=== PATIENT | male | born 1955 | race Caucasian/White ===

== ENCOUNTER 2024-11-19 14:33 | Outpatient (CLI) | payer MEDICARE, SELFPAY ==
[2024-11-19 18:30] LABS: Basophils # 0.1 K/mm3 (0-0.2); Basophils % 0.6 % (0.1-2.0); Eosinophils # 0.7 K/mm3 (0.0-0.4); Eosinophils % 8.7 % (0.1-12.0); Hematocrit 42.9 % (42.0-52.0); Hemoglobin 13.8 g/dL (14.1-18.0); Lymphocytes # 2.4 K/mm3 (0.7-4.5); Lymphocytes % 29.7 % (10-50); Mean Corpuscular HGB Conc 32.2 g/dL (31.8-35.4); Mean Corpuscular Volume 83.8 fl (80-94); Mean Platelet Volume 10.1 fl (7.4-10.4); Monocytes # 0.6 K/mm3 (0.1-1.0); Neutrophils # 4.4 K/mm3 (1.8-7.8); Neutrophils % 53.8 % (37.0-80.0); Platelet Count 243 K/mm3 (142-424); Red Blood Count 5.12 M/mm3 (4.60-6.20); Red Cell Distribution Width 15.8 % (11.5-17.5); White Blood Count 8.1 K/mm3 (4.8-10.8)
[2024-11-19 18:31] LABS: Creatinine,Urine Random 21 mg/dL (Not Estab.)
[2024-11-19 19:09] LABS: Albumin Level 3.8 g/dl (3.5-5.0); Chloride 100 mmol/L (98-107); Sodium 138 mmol/L (136-145)
[2024-11-19 19:10] LABS: Potassium 4.2 mmoL/L (3.5-5.1)
[2024-11-19 19:12] LABS: Alanine Aminotransferase 9 U/L (12-78); Albumin/Globulin Ratio 1.3 (1.1-1.8); Anion Gap 11.2 mEq/L (5-15); Aspartate Amino Transferase 20 U/L (17-59); Bilirubin,Total 0.3 mg/dl (0.2-1.3); Blood Urea Nitrogen 32 mg/dl (9-20); Carbon Dioxide 31 mmol/L (22.0-30.0); Cholesterol 167 mg/dl (140-200); Estimated Glomerular Filt Rate 28 ml/min (>60); GFR (African American) 34 ML/MIN (>60); Globulin 2.9 g/dL (1.3-3.2); Total Protein,Serum 6.7 g/dl (6.3-8.2); Triglycerides 323 mg/dl (30-150); VLDL Cholesterol 65 mg/dL (0-40)
[2024-11-19 19:13] LABS: Alkaline Phosphatase 122 U/L (38-126); Calcium 8.5 mg/dl (8.4-10.2); Chol/HDL Ratio 3.3 (1-3.5); Glucose 118 mg/dl (74-100); HDL Cholesterol 51 mg/dl (40-60)
[2024-11-19 19:23] LABS: Direct LDL Cholesterol 77.97 mg/dL (100-129)
[2024-11-19 19:44] LABS: Thyroid Stimulating Hormone 3.58 uIU/mL (0.465-4.68)
[2024-11-19 20:47] LABS: Microalbumin > 190.000 mg/L (0-16.7); Microalbumin/Creatinine Ratio 904.7
[2024-11-19 21:08] LABS: Prostate Specific Ag Screen 0.7 ng/ml (0.0-4.0)
== END 2024-11-19 23:59 | disposition home or self-care (01) ==
LOC: LAB.DROPOF 11-22 12:16
PROVIDERS: PCP Family Medicine; Visit Provider Family Medicine
DX: E11.9 Type 2 diabetes mellitus without complications (principal); N19 Unspecified kidney failure; Z12.5 Encounter for screening for malignant neoplasm of prostate; Z76.89 Persons encountering health services in other specified circumstances
CPT/HCPCS: 80053; 80061; 82043; 82570; 84443; 85025; G0103

== ENCOUNTER 2025-01-06 10:05 | Outpatient (RCR) | payer MEDICARE, SELFPAY ==
--- NOTE | 2025-01-06 11:50 | HMH.PTOPEV ---
PT Outpatient Evaluation Rehab PT Outpatient Evaluation Start: 01/06/25 10:25 Freq: Status: Active Protocol: Document 01/06/25 10:30 PHORNE (Rec: 01/06/25 11:49 PHORNE [id number]) E-signed By Tima Lau, PT Outpatient Therapy Subjective History Subjective History Mr. Ardon is a 69 year-old man who presents with vertigo since he moved from [place] ~2 months ago. 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 He has a prior history of inner ear infections and seasonal allergies. Pt states that he does not have hearing loss and has had to use his hearing to compensate from poor vision throughout his life. Pt has had >2 falls in last 6 months, and has led to some MSK pain and neck tightness. Pt states occasionally the area around his anterior neck will swell and he will black out. 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 Pt states nausea/ vomiting will accompany his vertigo, and it lasts for hours at a time until he takes his meclizine. He states that there is no specific movement that triggers his vertigo, but is worse in bed although pt sleeps in his recliner. He states that meclizine has helped, but his vertigo has progressively gotten worse. Pt uses a cane for ambulation as needed. New diagnosis of cancer in past 12 Yes months? Chief Complaint Other Current Functional Limitations Lifting,Housework,Standing, Recreation Activity,Walking, Balance Symptom Description Activity Dependent Balance Eval Hx of Falls Hx Falls Yes Number in last 6 months 2 Nystagmus Nystagmus Presence None Miscellaneous Dx PT Eval Objective Objective Special tests: (-) L and R [place]-Hallpike maneuvers for anterior/ posterior canal BPPV Hearing acuity equal bilaterally Visual acuity impaired, therefore VOR and oculomotor testing deferred Outpatient Therapy Assessment Impairments Problems/Impairmments Impaired Walking,Impaired Standing,Impaired Household Care,Impaired Stepping on Uneven Surface,Impaired Recreational Activities, Impaired Work Activities, Impaired Balance Prognosis Rehab Potential Innapropriate for Skilled Therapy Comment Patient presents with vertigo and numerous comorbid conditions that may be causing his dizziness. Due to pt's blindness and lack of visual acuity, VOR and oculomotor testing were unable to be assessed. Pt's history and negative [place]-Hallpike maneuvers B/L ruled out anterior/posterior canal BPPV. Pt's history of a-fib, renal cancer with nephrectomy, blindness bilaterally, Parkinson's disease, and hx of inner ear infections are all potential causes for pt's sx. Currently there is little expected benefit to any treatment our clinic can offer at this time. Pt may benefit from further work-up or referral to ENT or neurology if he wishes to pursue further treatment. Clinical Impression Consistent with Diagnosis No Outpatient Therapy Plan of Care Treatment Plan May Include Eval/Re-Eval Yes Addendums This patient is a candidate for social No or vocational rehab? Patient/Guardian verbally acknowledges Yes understanding of treatment program and consents to further treatment? Patient/Guardian verbally acknowledges Yes understanding of diagnosis, prognosis and goals for treatment? Eval Complexity PT Charges 30600 - High Complexity Shoulder/Elbow Eval Shoulder Objective Measurements Elbow Objective Measurements PHYSICIAN CERTIFICATION: I certify the specified therapy services for Chinmay Ardon are required, authorized, and reviewed every 30 days.
== END 2025-01-06 23:59 | disposition home or self-care (01) ==
LOC: PT 10:05
PROVIDERS: Visit Provider Physician Assistant
DX: R42 Dizziness and giddiness (principal)
CPT/HCPCS: 97163

== ENCOUNTER 2025-01-19 09:41 | Outpatient (CLI) | payer MEDICARE, SELFPAY ==
[2025-01-19 19:37] LABS: Basophils # 0.1 K/mm3 (0-0.2); Basophils % 0.6 % (0.1-2.0); Eosinophils # 0.4 Kmm3 (0.0-0.4); Eosinophils % 4.5 % (0.1-12.0); Hematocrit 47.7 % (42.0-52.0); Hemoglobin 14.9 g/dL (14.1-18.0); Immature Granulocytes # 0.02 10^3uL; Immature Granulocytes % 0.2 %; Lymphocytes # 2.4 K/mm3 (0.7-4.5); Lymphocytes % 27.1 % (10-50); Mean Corpuscular HGB Conc 31.2 g/dL (31.8-35.4); Mean Corpuscular Hemoglobin 27.1 pg (27.0-31.2); Mean Corpuscular Volume 86.9 fl (80-94); Mean Platelet Volume 10.1 fl (7.4-10.4); Monocytes # 0.5 K/mm3 (0.1-1.0); Neutrophils # 5.4 K/mm3 (1.8-7.8); Neutrophils % 61.6 % (37.0-80.0); Nucleated Red Blood Cells # 0 10^3/uL; Nucleated Red Blood Cells % 0 %; Platelet Count 242 K/mm3 (142-424); Red Blood Count 5.49 M/mm3 (4.60-6.20); Red Cell Distribution Width 16.7 % (11.5-17.5); Red Cell Distribution Width-SD 52.4 fL; White Blood Count 8.8 K/mm3 (4.8-10.8)
[2025-01-19 20:06] LABS: Chloride 102 mmol/L (98-107); Sodium 137 mmol/L (136-145)
[2025-01-19 20:07] LABS: Potassium 4.1 mmoL/L (3.5-5.1)
[2025-01-19 20:09] LABS: Alanine Aminotransferase 7 U/L (12-78); Anion Gap 12.1 mEq/L (5-15); Aspartate Amino Transferase 19 U/L (17-59); Blood Urea Nitrogen 47 mg/dl (9-20); Carbon Dioxide 27 mmol/L (22.0-30.0); Estimated Glomerular Filt Rate 22 ml/min (>60); GFR (African American) 26 ML/MIN (>60)
[2025-01-19 20:10] LABS: Albumin/Globulin Ratio 1.3 (1.1-1.8); Alkaline Phosphatase 105 U/L (38-126); Bilirubin,Total 0.4 mg/dl (0.2-1.3); Calcium 8.8 mg/dl (8.4-10.2); Globulin 3.1 g/dL (1.3-3.2); Glucose 191 mg/dl (74-100); Total Protein,Serum 7.1 g/dl (6.3-8.2)
== END 2025-01-19 23:59 | disposition home or self-care (01) ==
LOC: LAB.DROPOF 01-21 12:51
PROVIDERS: PCP Family Medicine; Visit Provider Family Medicine
DX: R42 Dizziness and giddiness (principal); H35.52 Pigmentary retinal dystrophy
CPT/HCPCS: 80053; 85025

== ENCOUNTER 2025-02-01 09:08 | Day surgery (SDC) | payer MEDICARE, SELFPAY ==
[2025-01-28 13:31] VITALS: BMI 32.6
--- NOTE | 2025-02-01 09:47 | ECG_ITS ---
APPROVED REPORT Exam: Resting ECG HR:63 bpm ECG Measurements Heart Rate 63 AXES QRSd 110 QRS 78 QT 406 T 75 QTc 413 Conclusion ATRIAL FIBRILLATION LOW QRS VOLTAGE IN EXTREMITY LEADS [QRS DEFLECTION < 0.5 mV IN LIMB LEADS] ABNORMAL RHYTHM ECG UNCONFIRMED REPORT Electronically signed by : Iglesia Sandoval MD 02/02/2025 08:49:39
[2025-02-01 09:49] VITALS: BP 168/99; PULSE 63; RESP 18; TEMP 36.1; O2SAT 99
--- NOTE | 2025-02-01 10:00 | CA_ITS ---
APPROVED REPORT EXAM: Comprehensive 2D, Doppler, and color-flow Echocardiogram Cork Sorter: RT Chriss(R) Ht: 5 ft 9 in Wt: 226lbs BSA: 2.18 BP: 136/75 mmHg Indications: AFIB, parkinsons disease, legally blind, WILLIAM amulet device 07/08/24, DM Procedure After obtaining informed consent, patient underwent transesophageal echo in the [facility]. Type of Sedation : MAC Sedation was administered by Butch Huang C.R.N.A. Sedation start time: 12:05 Case end Time: 12:20 Transesophageal probe was inserted and advanced into esophagus without difficulty by Dr. Angel Luis Cohen. The OLVIN was performed without complications. Throughout the procedure, the blood pressure, pulse oximetry, cardiac rhythm, and rate were monitored. The patient tolerated the procedure without adverse effects. Recovery from conscious sedation was uneventful and vital signs were stable. Left Ventricle The left ventricle is normal size. The left ventricular systolic function is normal. The left ventricular ejection fraction is within the normal range. There is increased overall thickness. There is normal LV segmental wall motion. LVEF is 60%. Right Ventricle The right ventricle is normal size. The right ventricular systolic function is normal. Atria The left atrium is dilated. The patient is s/p WILLIAM occlusion device (07/08/2024) with Amulet device. The device is well-seated in the ostial LA appendage. There are no masses or thrombi. No evidence of peridevice leak. No evidence of flow on color Doppler distally into the WILLIAM. The right atrium size is normal. s/p iatrogenic ASD post-WILLIAM occlusion device placement. In this study, color Doppler does not identify the iatrogenic ASD. Aortic Valve Aortic valve is mildly thickened. There is no aortic valvular stenosis. Mitral Valve The mitral valve is normal in structure. No evidence of mitral valve stenosis. Mild mitral regurgitation. Tricuspid Valve Tricuspid valve is grossly normal in structure and function. Mild tricuspid regurgitation. RVSP is 12 mmHg plus RA pressure. Trace pulmonic regurgitation. Pulmonic Valve The pulmonary valve is normal in structure. Great Vessels The aortic root is normal in size. The ascending aorta is normal in size. Pericardium There is no pericardial effusion. Other Information Study Quality: Fair Conclusion Normal biventricular systolic function. Biatrial dilation. The patient is s/p WILLIAM occlusion device (07/08/2024) with Amulet device. The device is well-seated in the ostial LA appendage. There are no masses or thrombi. No evidence of peridevice leak. No evidence of flow on color Doppler distally into the WILLIAM. s/p iatrogenic ASD post-WILLIAM occlusion device placement. In this study, color Doppler does not identify the iatrogenic ASD. Mild MR, mild TR. Electronically signed by : Mckayla Cohen MD 02/07/2025 13:25:17
[2025-02-01 10:07] LABS: Basophils % 0.5 % (0.1-2.0); Eosinophils # 0.5 Kmm3 (0.0-0.4); Eosinophils % 5.9 % (0.1-12.0); Hematocrit 46.3 % (42.0-52.0); Hemoglobin 14.8 g/dL (14.1-18.0); Immature Granulocytes # 0.02 10^3uL; Immature Granulocytes % 0.2 %; Lymphocytes # 3.4 K/mm3 (0.7-4.5); Mean Corpuscular Hemoglobin 27.3 pg (27.0-31.2); Mean Corpuscular Volume 85.3 fl (80-94); Mean Platelet Volume 9.4 fl (7.4-10.4); Monocytes # 0.4 K/mm3 (0.1-1.0); Monocytes % 4.5 % (1.7-9.3); Neutrophils % 47.9 % (37.0-80.0); Nucleated Red Blood Cells # 0 10^3/uL; Nucleated Red Blood Cells % 0 %; Platelet Count 197 K/mm3 (142-424); Red Blood Count 5.43 M/mm3 (4.60-6.20); Red Cell Distribution Width 15.7 % (11.5-17.5); Red Cell Distribution Width-SD 48.4 fL; White Blood Count 8.3 K/mm3 (4.8-10.8)
--- NOTE | 2025-02-01 10:14 | EXP.ANES.CKL ---
[facility] Disclaimer: The information contained in this section may have been updated after the patient was seen, as this information can be updated by other users. Medical History Retinitis pigmentosa History of kidney cancer Vertigo Blindness of both eyes History of COPD Back pain Afib Intertrigo Blindness of right eye Parkinson disease Hypertension Diabetes Surgical History History of kidney removal Social History Smoking Status: Current every day smoker alcohol intake: never substance use type: denies use current occupational status: disabled Travel in the last 8 weeks?: None [facility] Anesthesia Checklist Patient Identification Patient Identification: Arm Band Structural Data Admitted From: Home Planned Operative Procedure/s: OLVIN Consent for Planned Operative Procedure(s) Verified: Yes Verified Documents: Surgical Consent and History and Physical NPO Status Verified Time NPO: 00:00 Additional verifications Anesthesia Reactions: No Airway Assessment Mallampati Score:: Class II C-Spine Mobility Assessed: Yes TMJ Mobility Assessed: Yes Dentition: Edentulous Neurological Assessment Level of Consciousness: Awake, Alert and Appropriate Anesthesia Plan Anesthesia Risk discussed: Yes Anesthesia Plan: Verified ASA Class: III Anesthesia Type: MAC
[2025-02-01 10:17] LABS: INR 1.05 (0.9-1.1); Prothrombin Time 11.6 seconds (10.1-12.5)
[2025-02-01 10:18] LABS: Anion Gap 9.9 mEq/L (5-15); Blood Urea Nitrogen 38 mg/dl (9-20); Calcium 8.8 mg/dl (8.4-10.2); Carbon Dioxide 32 mmol/L (22.0-30.0); Chloride 101 mmol/L (98-107); Creatinine Clearance Estimated 39 mL/min (50-200); Estimated Glomerular Filt Rate 25 ml/min (>60); GFR (African American) 30 ML/MIN (>60); Glucose 107 mg/dl (74-100); Potassium 3.9 mmoL/L (3.5-5.1); Sodium 139 mmol/L (136-145)
[2025-02-01 12:12] VITALS: BP 144/72; PULSE 53; RESP 16; TEMP 36.3; O2SAT 93
[2025-02-01 12:22] VITALS: BP 135/83; PULSE 63; RESP 16; O2SAT 95
[2025-02-01 12:32] VITALS: BP 131/74; PULSE 78; RESP 16; O2SAT 94
[2025-02-01 12:42] VITALS: BP 128/79; PULSE 60; RESP 16; O2SAT 95
[2025-02-01 14:50] LABS: POC Glucose,Bedside 122 (70-110)
== END 2025-02-01 12:46 | disposition home or self-care (01) ==
PROVIDERS: PCP Family Medicine; Visit Provider Internal Medicine
DX: I48.91 Unspecified atrial fibrillation (principal); R94.31 Abnormal electrocardiogram [ECG] [EKG]; I34.0 Nonrheumatic mitral (valve) insufficiency; I36.1 Nonrheumatic tricuspid (valve) insufficiency; I51.7 Cardiomegaly; Z95.818 Presence of other cardiac implants and grafts; G20.A1 Parkinson's disease without dyskinesia, without mention of fluctuations; E11.9 Type 2 diabetes mellitus without complications; J44.9 Chronic obstructive pulmonary disease, unspecified; Z79.82 Long term (current) use of aspirin; Z79.4 Long term (current) use of insulin; Z79.899 Other long term (current) drug therapy; Z79.84 Long term (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 oral hypoglycemic drugs; F17.200 Nicotine dependence, unspecified, uncomplicated; Z88.8 Allergy status to other drugs, medicaments and biological substances
CPT/HCPCS: 36415; 80048; 82962; 85025; 85610; 93005; 93270; 93312; 93319; J2003; J2704

== ENCOUNTER 2025-04-09 07:29 | Emergency (ER) | payer MEDICARE, SELFPAY ==
[2025-04-09] VITALS (13 sets, daily range): BP systolic 82–127; BP diastolic 58–82; PULSE 66–107; RESP 16–18; TEMP 36.6; O2SAT 94–100; BMI 33.2
--- OUTSIDE RECORDS SUMMARY | 2025-04-09 07:37 | XMS_ITS | Encounter Summary ---
Author Organization [facility] P Address [facility] [place] [address] Phone Care Team Providers Care Manager Interventional Name Role Phone Sofia Bruner MD Primary Care Provider Reason for Visit * Reason Comments Refill Request Encounter Details Date Type Department Care Team (Late st Contact Info) Description 03/08/[address] [facility] [address] [place] [address] Sofia Bruner MD [address] [place] [address] Social History Tobacco Use Types Packs/Day Years Used Date Smoking Tobacco: Every Day Cigarettes 0.5 22 Smokeless Tobacco: Never Alcohol Use Standard Drinks/Week Comments No 0 (1 standard drink = 0.6 oz pur e alcohol) PHQ-2 Answer Date Recorded Patient Health Questionnaire-2 Score 0 12/29/2023 Food Insecurities Answer Date Recorded Within the past 12 months, d id you worry that your food would run out before you got money to buy more? No 07/09/2024 Within the past 12 months, d id the food you bought just not last and you didn't have money to get more? No 07/09/2024 Housing/Utilities Answer Date Recorded Are you worried about losing your housing? No 07/09/2024 Within the past 12 months, h ave you ever stayed: outside, in a car, in a tent, in an overnight skilled nursing, or temporarily in someone else's home (i.e. couch-surfing)? No 07/09/2024 Within the past 12 months, h ave you been unable to get utilities (heat, electricity) when it was really needed? No 024 Interpersonal Safety Answer Date Record ed Do you feel physically or em otionally unsafe where you currently live? No 07/09/2024 Within the past 12 months, h ave you been hit, slapped, kicked or otherwise physically hurt by anyone? No 07/09/2024 Within the past 12 months, h ave you been humiliated or emotionally abused by anyone? No 07/09/2024 Transportation Answer Date Recorded Within the past 12 months, h as a lack of transportation kept you from medical appointments or from doing things needed for daily living? No 07/09/2024 Utilities Answer Date Recorded Are you worried about losing your housing? No 07/09/2024 Within the past 12 months, h ave you ever stayed: outside, in a car, in a tent, in an overnight skilled nursing, or temporarily in someone else's home (i.e. couch-surfing)? No 07/09/2024 Within the past 12 months, h ave you been unable to get utilities (heat, electricity) when it was really needed? No 024 Sex and Gender Information Value Date Recorded Sex Assigned at Not on file Legal Sex Male 11:40 AM EST Gender Identity Male 06/08/2018 9:16 AM EDT Sexual Orientation Not on file documented as of this encounter Functional Status * Are you deaf or do you have serious difficulty hearing? Answer Date of Assessment Author No 07/08/2024 8:46 AM EDT Tanisha Ruiz, Registered Nurse * Are you blind or do you have serious difficulty seeing, even when wearing glasses? Answer Date of Assessment Author No 07/08/2024 8:46 AM EDT Tanisha Ruiz, Registered Nurse * Do you have serious difficulty walking or climbing stairs? (5 years old or older) Answer Date of Assessment Author No 07/08/2024 8:46 AM EDT Tanisha Ruiz, Registered Nurse * Do you have difficulty dressing or bathing? (5 years old or older) Answer Date of Assessment Author No 07/08/2024 8:46 AM EDT Tanisha Ruiz, Registered Nurse * Because of a physical, mental, or emotional condition, do you have difficulty doing errands alone such as visiting a doctor???s office or shopping? (15 years old or older) Answer Date of Assessment Author No 07/08/2024 8:46 AM EDT Tanisha Ruiz Registered Nurse documented as of this encounter Mental Status * Because of a physical, mental, or emotional condition, do you have serious difficulty concentrating, remembering, or making decisions? (5 years old or older) Answer Entry Date Author No 07/08/2024 8:46 AM EDT Tanisha Ruiz Registered Nurse documented in this encounter Miscellaneous Notes * Telephone Encounter - Lydia Galdamez - 03/08/2025 9:52 AM EDT Invokana LF-06/29/24 Q-90 R-1 LV-06/29/2025 APPT-NONE Metoprolol LF-06/29/24 Q-180 R-1 documented in this encounter Plan of Treatment Not on file documented as of this encounter Goals Goal Patient Goal Type Associated Problems Recent Progress Patient-Stated? Author Blood Pressure < 140/90 Blood Pressure 136/82(2023 10:39 AM EST) No Sofia Bruner MD Note: http://www.nhlbi.nih.gov LDL, CALCULATED < 100 Result Component 90(11/19/2023 3:36 PM EDT) No Sofia Bruner MD CREATININE < 1.3 Result Component 2.21(07/08/20 24 7:04 AM EDT) Sofia Abbott MD Exercising Regularly Self-Managemen t Not on track( 020 1:59 PM EST) Sofia Abbott MD Note: [email or web address] Patient has no barriers to completing goals Self-Managemen t Not on track( 020 2:00 PM EST) Sofia Abbott MD Note: Legally blind Patient working to improve diet Self-Managemen t Not on track( 2:00 PM EST) No Sofia Bruner MD Patient is monitoring Blood Pressure weekly Self-Managemen t On track( 020 2:00 PM EST) No Sofia Bruner MD Note: Sample Blood Pressure Log Date Time Systolic Diastolic 1 2 3 4 5 http://www.nhlbi.nih.gov documented as of this encounter Visit Diagnoses Not on filedocumented in this encounter Additional Health Concerns Assessment Noted Time PHQ-9 Depression Total Score: 2 09/18/19 24 12:35 PM EST PHQ-2 Depression Total Score: 0 12/29/19 24 4:17 PM EDT documented as of this encounter Care Teams Manager Interventional Relationship Specialty Start Date End Date Sofia Bruner MD PCP - General Family Medicine 10/24/12 documented as of this encounter
--- OUTSIDE RECORDS SUMMARY | 2025-04-09 07:37 | XMS_ITS | Encounter Summary ---
Author Organization [facility] Address [facility] [address] [place] [address] Phone Care Team Providers Care Patient Companion Name Role Phone Sofia Bruner MD Primary Care Provider Reason for Visit * Reason Comments Refill Request Encounter Details Date Type Department Care Team (Late st Contact Info) Description 03/23/2025 Refill [facility] [address] [place] [address] Sofia Bruner MD [address] [place] [address] Social History Tobacco Use Types [...] car, in a tent, in an overnight half-way, or temporarily in someone else's home (i.e. [...] car, in a tent, in an overnight half-way, or temporarily in someone else's home (i.e. [...] encounter Miscellaneous Notes * Telephone Encounter - Cele Silver - 03/23/2025 11:17 AM EDT LV 06/29/24 RTO 4 months LF duoneb 06/30/24 #[id number] Torsemide 08/30/24 #180 documented in this encounter Plan of Treatment Not on file documented as of this encounter Goals Goal Patient Goal Type Associated Problems Recent Progress Patient-Stated? Author Blood Pressure < 140/90 Blood Pressure 136/82(2023 10:39 AM EST) No Sofia Bruner MD Note: http://www.nhlbi.nih.gov LDL, CALCULATED < 100 Result Component 90(11/19/2023 3:36 PM EDT) No Sofia Bruner MD CREATININE < 1.3 Result Component 2.21(07/08/20 7:04 AM EDT) Sofia Abbott MD Exercising Regularly Self-Managemen t Not on track( 020 1:59 PM EST) Sofia Abbott MD Note: [email or web address] Patient has no barriers to completing goals Self-Managemen t Not on track( 020 2:00 PM EST) No Sofia Bruner MD Note: Legally blind Patient working to improve diet Self-Managemen t Not on track( 020 2:00 PM EST) No Sofia [...] documented as of this encounter Care Teams Patient Companion Relationship Specialty Start Date End Date Sofia Bruner MD PCP - General Family Medicine 10/24/12 documented as of this encounter
--- OUTSIDE RECORDS SUMMARY | 2025-04-09 07:37 | XMS_ITS | Encounter Summary ---
Author Organization [facility] P Address [address] [place] [address] [place] [address] Phone Care Team Providers Care Senior Firewall Engineer Name Role Phone Sofia Bruner MD Primary Care Provider Reason for Visit * Reason Comments Refill Request Encounter Details Date Type Department Care Team (Late st Contact Info) Description 03/23/2025 Refill [facility] [address] [place] [address] Munir Romero MD [address] [place] [address] Social History Tobacco Use Types Packs/Day Years [...] car, in a tent, in an overnight group home, or temporarily in someone else's home (i.e. [...] car, in a tent, in an overnight group home, or temporarily in someone else's home (i.e. [...] Assessment Author No 07/08/2024 8:46 AM EDT Joseph, Tanisha an E, Registered Nurse * Because of a physical, mental, or emotional condition, do you have difficulty doing errands alone such as visiting a doctor???s office or shopping? (15 years old or older) Answer Date of Assessment Author No 07/08/2024 8:46 AM EDT Tanisha Ruiz, Registered Nurse documented as of this encounter Mental Status * Because of a physical, mental, or emotional condition, do you have serious difficulty concentrating, remembering, or making decisions? (5 years old or older) Answer Entry Date Author No 07/08/2024 8:46 AM EDT Tanisha Ruiz Registered Nurse documented in this encounter Plan of Treatment [...] Exercising Regularly Self-Managemen t Not on track( 1:59 PM EST) Sofia Abbott MD Note: [email or web address] Patient has no barriers to completing goals Self-Managemen t Not on track( 2:00 PM EST) Sofia Abbott MD Note: Legally blind Patient working to improve diet Self-Managemen t Not on track( 2:00 PM EST) Sofia Abbott MD Patient is monitoring Blood Pressure weekly Self-Managemen t On track( 2:00 PM EST) Sofia Abbott MD Note: Sample Blood Pressure Log Date Time Systolic Diastolic 1 2 3 4 5 http://www.nhlbi.nih.gov documented as of this encounter Visit Diagnoses Not on filedocumented in this encounter Additional Health Concerns Assessment Noted Time PHQ-9 Depression Total Score: 2 09/18/19 24 12:35 PM EST PHQ-2 Depression Total Score: 0 12/29/19 24 4:17 PM EDT documented as of this encounter Care Teams Senior Firewall Engineer Relationship Specialty Start Date End Date Sofia Bruner MD PCP - General Family Medicine 10/24/12 documented as of this encounter
--- OUTSIDE RECORDS SUMMARY | 2025-04-09 07:37 | XMS_ITS | Encounter Summary ---
Author Organization [facility] AND [facility] [address] [place] [address] Phone Care Team Providers Care Weight Analyst Name Role Phone Sofia Bruner MD Primary Care Provider Encounter Details Date Type Department Care Team (Late st Contact Info) Description 02/24/2025 Telephone [facility] - [facility] [address] [place] [address] Sofia Bruner MD [address] [place] [address] Social History Tobacco Use Types [...] car, in a tent, in an overnight nursing home, or temporarily in someone else's home [...] car, in a tent, in an overnight nursing home, or temporarily in someone else's home [...] encounter Miscellaneous Notes * Telephone Encounter - Brenda Santana - 02/24/2025 8:55 AM EDT Tried to call pt but no answer or no vm, * Telephone Encounter - Sofia Bruner MD - 02/24/2025 8:39 AM EDT Please contact patient to find out whether he has established with a new PCP. I have not seen him since June 2024. We are still getting refill request which I have been denying documented in this encounter Plan of Treatment [...] 1:59 PM EST) Sofia Abbott MD Note: [email or web address] Patient has no barriers to completing goals Self-Managemen t Not on track( 2:00 PM EST) No Sofia Bruner MD Note: Legally blind Patient working to improve diet Self-Managemen t Not on track( 2:00 PM EST) No Sofia Bruner MD Patient is monitoring Blood Pressure weekly Self-Managemen t On track( 2:00 PM EST) No Sofia Bruner [...] documented as of this encounter Care Teams Weight Analyst Relationship Specialty Start Date End Date Sofia Bruner MD PCP - General Family Medicine 10/24/12 documented as of this encounter
--- OUTSIDE RECORDS SUMMARY | 2025-04-09 07:38 | XMS_ITS | Encounter Summary ---
Author Organization [facility] Address [facility] [place] [place] [address] Phone Care Team Providers Care Senior Programmer Name Role Phone Sofia Bruner MD Primary Care Provider Reason for Visit * Reason Onset Date Comments Cpa 04/06/2025 Insulin Aspart F lexpen 100 units Encounter Details Date Type Department Care Team (Late st Contact Info) Description 04/06/2025 Telephone [facility] [address] [place] [address] Centralized, Prior Authorization Social History Tobacco Use Types Packs/Day Years [...] car, in a tent, in an overnight mcc, or temporarily in someone else's home (i.e. [...] car, in a tent, in an overnight mcc, or temporarily in someone else's home (i.e. [...] 8:46 AM EDT Tanisha Ruiz Registered Nurse * Do you have serious difficulty walking or climbing stairs? (5 years old or older) Answer Date of Assessment Author No 07/08/2024 8:46 AM EDT Tanisha Ruiz Registered Nurse * Do you have difficulty dressing or bathing? (5 years old or older) Answer Date of Assessment Author No 07/08/2024 8:46 AM EDT Tanisha Ruiz Registered Nurse * Because of a physical, [...] AM EDT Tanisha Ruiz, Registered Nurse documented in this encounter Miscellaneous Notes * Telephone Encounter - Liza Orozco - 04/06/2025 1:53 PM EDT Received a call/fax from [facility] pharmacy requesting prior authorization for Insulin Aspart Flexpen 100 units No Escalera from [employer] was provided: Pharmacy card ID#: [id number] RX BIN: [id number] PCN: [id number] RX Group: COS documented in this encounter Plan of Treatment [...] Not on track( 020 1:59 PM EST) No Sofia Bruner MD Note: [email or web address] Patient has no barriers to completing goals [...] as of this encounter Care Teams Senior Programmer Relationship Specialty Start Date End Date Sofia Bruner MD PCP - General Family Medicine 10/24/12 documented as of this encounter
--- OUTSIDE RECORDS SUMMARY | 2025-04-09 07:38 | XMS_ITS | Encounter Summary ---
Author Organization [facility] P Address [address] [place] [address] [place] [address] Phone Care Team Providers Care Icebox Man Name Role Phone Sofia Bruner MD Primary Care Provider Sofia Bruner MD Unavailable + [phone] Dima Crenshaw Registered Nurse Unavailable U navailable Reason for Referral * Cardiology Services (Routine) - [place] No Prior Auth Required Specialty Diagnoses / Procedures Referred By Contac t Referred To Contact Cardiology Diagnoses Paroxysmal atrial fibrillation (HCC) Procedures CD TRANSESOPHAGEAL ECHO Bradley Hammond MD Phone: tel: fax: Referral ID Status Reason Start Date Expiration Date Visits Requested Visits Authorized [id number] [place] No Prior Auth Required Specialty Services Required 05/25/2024 05/25/2025 1 1 Encounter Details Date Type Department Care Team (Late st Contact Info) Description 05/25/2024 Orders Only [facility] Central Scheduling [address] [place], [place] [address] [place] MD [address] [place], [place] [phone] Paroxysmal atrial fibrillation (HCC) (Primary Dx) Social History Tobacco Use Types Packs/Day Years [...] you got money to buy more? No 10/18/2023 Within the past 12 months, d id the food you bought just not last and you didn't have money to get more? No 10/18/2023 Housing/Utilities Answer Date Recorded Are you worried about losing your housing? No 10/18/2023 Within the past 12 months, h ave you ever stayed: outside, in a car, in a tent, in an overnight senior living, or temporarily in someone else's home (i.e. couch-surfing)? No 10/18/2023 Within the past 12 months, h ave you been unable to get utilities (heat, electricity) when it was really needed? No Interpersonal Safety Answer Date Record ed Do you feel physically or em otionally unsafe where you currently live? No 10/18/2023 Within the past 12 months, h ave you been hit, slapped, kicked or otherwise physically hurt by anyone? No 10/18/2023 Within the past 12 months, h ave you been hit, slapped, kicked or otherwise physically hurt by anyone? No 10/18/2023 Transportation Answer Date Recorded Within the past 12 months, h as a lack of transportation kept you from medical appointments or from doing things needed for daily living? No 10/18/2023 Utilities Answer Date Recorded Are you worried about losing your housing? No 10/18/2023 Within the past 12 months, h ave you ever stayed: outside, in a car, in a tent, in an overnight senior living, or temporarily in someone else's home (i.e. couch-surfing)? No 10/18/2023 Within the past 12 months, h ave [...] hearing? Answer Date of Assessment Author No 10/19/2023 11:00 AM Georgie Paige Registered Nurse * Are you blind or do you have serious difficulty seeing, even when wearing glasses? Answer Date of Assessment Author Yes 10/19/2023 11:00 AM Georgie Paige Registered Nurse * Do you have serious difficulty walking or climbing stairs? (5 years old or older) Answer Date of Assessment Author No 10/19/2023 11:00 AM Georgie Paige Registered Nurse * Do you have difficulty dressing or bathing? (5 years old or older) Answer Date of Assessment Author No 10/19/2023 11:00 AM Georgie Paige Registered Nurse * Because of a physical, mental, or emotional condition, do you have difficulty doing errands alone such as visiting a doctor???s office or shopping? (15 years old or older) Answer Date of Assessment Author No 10/19/2023 11:00 AM Georgie Paige Registered Nurse documented as of this encounter Mental Status * Because of a physical, mental, or emotional condition, do you have serious difficulty concentrating, remembering, or making decisions? (5 years old or older) Answer Entry Date Author No 10/19/2023 11:00 AM Georgie Paige Registered Nurse documented in this encounter Plan of Treatment Scheduled Orders Name Type Priority Associated Diagnoses Orde r Schedule CD TRANSESOPHAGEAL ECHO Echocardiography Routine Paroxysmal atrial fibrillation (HCC) Expected: 05/25/2024, Expires: 05/25/2025 documented as of this encounter Goals Goal Patient Goal Type Associated Problems Recent Progress Patient-Stated? Author Blood Pressure < 140/90 Blood Pressure 136/82(2023 10:39 AM EST) No Sofia Bruner MD Note: http://www.nhlbi.nih.gov LDL, CALCULATED < 100 Result Component 90(11/19/2023 3:36 PM EDT) No Sofia Bruner MD CREATININE < 1.3 Result Component 2.21(07/08/20 24 7:04 AM EDT) No Sofia Bruner MD Exercising Regularly Self-Managemen t Not on track( 1:59 PM EST) No Sofia Bruner MD Note: [email or web address] Patient has no barriers to completing goals [...] documented as of this encounter Visit Diagnoses Diagnosis Paroxysmal atrial fibrillation (HCC)- Primary Atrial fibrillation documented in this encounter Additional Health Concerns Assessment Noted Time PHQ-9 Depression Total Score: 2 09/18/19 24 12:35 PM EST PHQ-2 Depression Total Score: 0 12/29/19 24 4:17 PM EDT documented as of this encounter Care Teams Icebox Man Relationship Specialty Start Date End Date Sofia Bruner MD PCP - General Family Medicine 10/24/12 Sofia Bruner MD [address] [place] [address] PCP - Krish GORMAN Attributed Physician 02/07/24 09/07/24 Dima Crenshaw, Registered Nurse Registered Nurse 07/12/24 07/13/24 documented as of this encounter
--- OUTSIDE RECORDS SUMMARY | 2025-04-09 07:38 | XMS_ITS | Encounter Summary ---
Author Organization [facility] Address [address] [place] [address] Phone Care Team Providers Care Utilization Review Nurse Name Role Phone Sofia Bruner MD Primary Care Provider Reason for Visit * Reason Comments Refill Request Encounter Details Date Type Department Care Team (Late st Contact Info) Description 01/05/2025 Refill [facility] - [facility] [address] [place] [address] Faisal Olvera MD [address] [place] [address] Social History Tobacco Use Types Packs/Day Years [...] car, in a tent, in an overnight care home, or temporarily in someone else's home [...] car, in a tent, in an overnight care home, or temporarily in someone else's home [...] * Telephone Encounter - Cele Silver - 01/05/2025 1:29 PM EDT LV 06/29/24 No appt scheduled LF 08/26/24 #90 R2 documented in this encounter Plan of Treatment [...] 1:59 PM EST) Sofia Abbott MD Note: [email or web address] Patient has no barriers to completing goals [...] documented as of this encounter Care Teams Utilization Review Nurse Relationship Specialty Start Date End Date Sofia Bruner MD PCP - General Family Medicine 10/24/12 documented as of this encounter
--- OUTSIDE RECORDS SUMMARY | 2025-04-09 07:38 | XMS_ITS | Encounter Summary ---
Author Organization [facility] Address [address] [place] [address] Phone Care Team Providers Care Laser Operator Name Role Phone Sofia Bruner MD Primary Care Provider Reason for Visit * Reason Comments Refill Request Encounter Details Date Type Department Care Team (Late st Contact Info) Description 03/09/2025 Refill [facility] - [facility] [address] [place] [address] Sofia Bruner MD [address] [place] [address] Social History Tobacco Use Types [...] in a tent, in an overnight senior care, or temporarily in someone else's home (i.e. [...] in a tent, in an overnight senior care, or temporarily in someone else's home (i.e. [...] 1:59 PM EST) Sofia Abbott MD Note: [email or web address] Patient has no barriers to completing goals [...] documented as of this encounter Care Teams Laser Operator Relationship Specialty Start Date End Date Sofia Bruner MD PCP - General Family Medicine 10/24/12 documented as of this encounter
--- OUTSIDE RECORDS SUMMARY | 2025-04-09 07:38 | XMS_ITS | Encounter Summary ---
Author Organization [facility] Address [facility] [place] [address] Phone Care Team Providers Care Planning Analyst Name Role Phone Sofia Bruner MD Primary Care Provider Sofia Bruner MD Unavailable + [phone] Reason for Referral * MRI/CAT Scan (Routine) - Pending Review Specialty Diagnoses / Procedures Referred By Contac t Referred To Contact Radiology Diagnoses Malignant neoplasm of right kidney, except renal pelvis Essential (primary) hypertension Diabetes mellitus without complication Asymptomatic microscopic hematuria Urge incontinence Personal history of malignant neoplasm of kidney Stress incontinence, male Other specified disorders of kidney and ureter Procedures MRI ABDOMEN W WO Sae Cameron MD Phone: tel: fax: Referral ID Status Reason Start Date Expiration Date Visits Requested Visits Authorized [id number] Pending Review Specialty Services Required 07/14/2024 07/14/2025 1 1 Encounter Details Date Type Department Care Team (Late st Contact Info) Description 07/14/2024 Orders Only [facility] Central Scheduling [address] [place] [address] [place] [address] [place] [phone] Malignant neoplasm of right kidney, except renal pelvis (HCC) (Primary Dx); Essential (primary) hypertension; Diabetes mellitus without complication (HCC); Asymptomatic microscopic hematuria; Urge incontinence; Personal history of malignant neoplasm of kidney; Stress incontinence, male; Other specified disorders of kidney and ureter Social History Tobacco Use Types Packs/Day Years [...] car, in a tent, in an overnight jail, or temporarily in someone else's home (i.e. [...] car, in a tent, in an overnight jail, or temporarily in someone else's home (i.e. couch-surfing)? No 07/09/2024 Within the past 12 months, h ave you been unable to get utilities (heat, electricity) when it was really needed? No 11/01/2 024 Sex and Gender Information Value Date [...] Assessment Author No 07/08/2024 8:46 AM EDT Wallace Ruiz Registered Nurse * Do you have [...] Type Priority Associated Diagnoses Orde r Schedule MRI ABDOMEN W WO CON Imaging Routine Malignant neoplasm of right kidney, except renal pelvis (HCC) Essential (primary) hypertension Diabetes mellitus without complication (HCC) Asymptomatic microscopic hematuria Urge incontinence Personal history of malignant neoplasm of kidney Stress incontinence, male Other specified disorders of kidney and ureter Expected: 07/14/2024, Expires: 07/14/2025 documented as of this encounter Goals Goal Patient Goal Type Associated Problems Recent Progress Patient-Stated? Author Blood Pressure < 140/90 Blood Pressure 136/82(2023 10:39 AM EST) No Sofia Bruner MD Note: http://www.nhlbi.nih.gov LDL, CALCULATED < 100 Result Component 90(11/19/2023 3:36 PM EDT) Sofia Abbott MD CREATININE < 1.3 Result Component 2.21(07/08/20 7:04 AM EDT) Sofia Abbott MD Exercising Regularly Self-Managemen t Not on track( 1:59 PM EST) Sofia Abbott MD Note: [email or web address] Patient has no barriers to completing goals [...] as of this encounter Visit Diagnoses Diagnosis Malignant neoplasm of right kidney, except renal pelvis- Primary Malignant neoplasm of kidney, except pelvis Essential (primary) hypertension Unspecified essential hypertension Diabetes mellitus without complication Type II or unspecified type diabetes mellitus without mention of complication, not stated as uncontrolled Asymptomatic microscopic hematuria Urge incontinence Personal history of malignant neoplasm of kidney Stress incontinence, male Other specified disorders of kidney and ureter documented in this encounter Additional Health Concerns Assessment Noted Time PHQ-9 Depression Total Score: 2 09/18/19 24 12:35 PM EST PHQ-2 Depression Total Score: 0 12/29/19 24 4:17 PM EDT documented as of this encounter Care Teams Planning Analyst Relationship Specialty Start Date End Date Sofia Bruner MD PCP - General Family Medicine 10/24/12 Sofia Bruner MD [address] [place] [address] PCP - Krish GORMAN Attributed Physician 02/07/24 09/07/24 documented as of this encounter
--- OUTSIDE RECORDS SUMMARY | 2025-04-09 07:38 | XMS_ITS | Encounter Summary ---
Author Organization [facility] Address [address] [place] [address] Phone Care Team Providers Care Track Service Person Name Role Phone Sofia Bruner MD Primary Care Provider Reason for Visit * Reason Comments Refill Request Encounter Details Date Type Department Care Team (Late st Contact Info) Description 01/05/2025 Refill [facility] - [facility] [address] [place] [address] Sofia Bruner MD [address] [place] [address] Type 2 diabetes mellitus with stage 4 chronic kidney disease, with long-term current use of insulin (HCC) Social History Tobacco Use Types Packs/Day Years [...] car, in a tent, in an overnight retirement, or temporarily in someone else's home (i.e. [...] car, in a tent, in an overnight retirement, or temporarily in someone else's home (i.e. [...] Telephone Encounter - Cele Silver - 01/05/2025 1:31 PM EDT LV 06/29/24 No appt scheduled LF duoneb 06/30/24 #180ml R1 Rest 10/12/24 #30d documented in this encounter Plan of Treatment Not on file documented as of this encounter Goals Goal Patient Goal Type Associated Problems Recent Progress Patient-Stated? 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
--- OUTSIDE RECORDS SUMMARY | 2025-04-09 07:38 | XMS_ITS | Encounter Summary ---
Author Organization [facility] Address [address] [place] [address] Phone Care Team Providers Care Medical Clinic Manager Name Role Phone Sofia Bruner MD Primary Care Provider Reason for Visit * Reason Comments Refill Request Encounter Details Date Type Department Care Team (Late st Contact Info) Description 01/17/2025 Refill [facility] - [facility] [address] [place] [address] Sofia Bruner MD [address] [place] [address] Social History Tobacco Use Types [...] car, in a tent, in an overnight long term, or temporarily in someone else's home (i.e. [...] car, in a tent, in an overnight long term, or temporarily in someone else's home (i.e. [...] * Telephone Encounter - Brenda Santana - 01/17/2025 4:38 PM EDT LAST OV 06/29/24 NEXT OV not at this time LAST FILLED 06/29/24 R-1 Qty-90 documented in this encounter Plan of Treatment [...] PM EST) No Sofia Bruner MD Note: [email or web address] Patient has no barriers to completing goals [...] documented as of this encounter Care Teams Medical Clinic Manager Relationship Specialty Start Date End Date Sofia Bruner MD PCP - General Family Medicine 10/24/12 documented as of this encounter
--- OUTSIDE RECORDS SUMMARY | 2025-04-09 07:38 | XMS_ITS | Encounter Summary ---
Author Organization [facility] P Address [address] [place] [address] [place] [address] Phone Care Team Providers Care Adjunct Nursing Faculty Name Role Phone Sofia Bruner MD Primary Care Provider Sofia Bruner MD Unavailable [phone] Nancy Garibay Unavailable Unavailable Sofia Bruner MD Unavailable [phone] Dima Crenshaw Registered Nurse Unavailable U navailable Reason for Visit * Reason Comments Refill Request Encounter Details Date Type Department Care Team (Late st Contact Info) Description 05/01/2023 Refill [facility] - [facility] [address] [place] [address] Sofia Bruner MD [address] [place] [address] Anxiety Social History Tobacco Use Types Packs/Day Years Used Date Smoking Tobacco: Every Day Cigarettes 0.5 22 Smokeless Tobacco: Never Alcohol Use Standard Drinks/Week Comments No 0 (1 standard drink = 0.6 oz pur e alcohol) PHQ-2 Answer Date Recorded Patient Health Questionnaire-2 Score 2 12/23/2022 Sex and Gender Information Value Date Recorded Sex Assigned at Not on file Legal Sex Male 11:40 AM EST Gender Identity Male 06/08/2018 9:16 AM EDT Sexual Orientation Not on file documented as of this encounter Functional Status * Are you deaf or do you have serious difficulty hearing? Answer Date of Assessment Author No 01/02/2022 9:00 AM EDT Fior Gilbert, Registered Nurse * Are you blind or do you have serious difficulty seeing, even when wearing glasses? Answer Date of Assessment Author No 01/02/2022 9:00 AM Fior [place] Registered Nurse * Do you have serious difficulty walking or climbing stairs? (5 years old or older) Answer Date of Assessment Author No 01/02/2022 9:00 AM Fior [place] Registered Nurse * Do you have difficulty dressing or bathing? (5 years old or older) Answer Date of Assessment Author No 01/02/2022 9:00 AM KAROLINAT Fior [place] Registered Nurse * Because of a physical, mental, or emotional condition, do you have difficulty doing errands alone such as visiting a doctor???s office or shopping? (15 years old or older) Answer Date of Assessment Author No 01/02/2022 9:00 AM Fior [place] Registered Nurse documented as of this encounter Mental Status * Because of a physical, mental, or emotional condition, do you have serious difficulty concentrating, remembering, or making decisions? (5 years old or older) Answer Entry Date Author No 01/02/2022 9:00 AM Fior [place] Registered Nurse documented in this encounter Plan [...] 1:59 PM EST) Sofia Abbott MD Note: [email or web address] Patient has no barriers to completing goals [...] as of this encounter Visit Diagnoses Diagnosis Anxiety Anxiety state, unspecified documented in this encounter Additional Health Concerns Infection Onset Date Last Indicated Resolved Time COVID-19 Suspect 09/06/2023 09/06/2023 09/06/2023 10:57 PM EST COVID-19 Confirmed Comment:>20D no longer infectious 09/06/2023 10/01/20232023 9:20 AM EST Influenza 10/01/2023 10/01/2023 2023 8:08 PM EST MRSA 10/01/2023 10/01/2023 10/31/2023 8:08 PM EST COVID-19 Suspect 11/27/2023 11/27/2023 11/27/2023 2:05 PM EDT Assessment Noted Time PHQ-9 Depression Total Score: 2 02/10/20 21 3:34 PM EDT PHQ-2 Depression Total Score: 2 12/24/19 23 3:14 PM EDT documented as of this encounter Care Teams Adjunct Nursing Faculty Relationship Specialty Start Date End Date Sofia Bruner MD PCP - General Family Medicine 10/24/12 Sofia Bruner MD [address] [place] [address] PCP - Madhu GORMAN Attributed Physician 02/06/21 01/06/24 Sofia Bruner MD [address] [place] [address] PCP - Krish GORMAN Attributed Physician 02/07/24 09/07/24 Nancy Garibay [place] Complex Care Management 09/18/23 01/05/24 Dima Crenshaw, Registered Nurse Registered Nurse 07/12/24 07/13/24 documented as of this encounter
--- OUTSIDE RECORDS SUMMARY | 2025-04-09 07:38 | XMS_ITS | Clinical Summary ---
Author Organization [facility] Address [address] [place] [address] Phone Care Team Providers Care Carpentry Instructor Name Role Phone Sofia Bruner MD Primary Care Provider Allergies Active Allergy Reactions Criticality Noted Date Comments Atorvastatin Dizziness,Vision Problem Medium 7 Peanut (Food) GI Upset 05/29/2020 Medications * This document contains information received from the source organization and may not represent a complete record from that organization. Triamcinolone Acetonide (NASACORT ALLERGY 24HR) 55 MCG/ACT AERO Use 2 sprays daily as needed (Rhinitis). Gets OTC. Active loratadine (CLARITIN) 10 mg tablet Take 10 mg by mouth daily as needed (Allergies). Active glucose blood (PRODIGY NO CODING BLOOD GLUC) STRPIndications :Controlled type 2 diabetes mellitus without complication, without long-term current use of insulin Inject under the skin 3 (three) times daily. 50 each 10 09/08/19 24 Active Insulin Pen Needle 30G X 5 MM [facility] [place] to inject insulin per insulin order instructions. 100 each 3 09/08/19 24 Active Glucose Blood (BLOOD GLUCOSE TEST STRIPS) STRP Check blood sugar 4 to 5 times a day (E11.22) Uncontrolled diabetes with stage 4 CKD 150 strip 11 09/22/19 24 Active Continuous Blood Gluc Industrial Relations Analyst (FREESTYLE LEONARD 3 READER) DEVIIndications :Type 2 diabetes mellitus with stage 4 chronic kidney disease, with long-term current use of insulin (HCC) Use to monitor blood sugar continuously. 1 each 09/27/19 24 Active acetaminophen (TYLENOL) 325 mg tablet Take 1 tablet by mouth every 4 (four) hours as needed for Mild Pain (1-3), Fever (T > 100.4 or MD spec.) or Headaches. 10/21/19 24 Active insulin lispro, 1 unit dial, (HUMALOG KWIKPEN) 100 unit/mL SOPN subcutaneous injection pen Up to 15 unts Sc tid before meals ( based on sliding scale ) 15 mL 5 12/22/19 24 Active methocarbamol (ROBAXIN) 750 MG TABS Take 1 tablet by mouth 3 (three) times daily as needed. 21 tablet 03/16/20 24 Active rosuvastatin (CRESTOR) 5 MG TABS Take 1 tablet by mouth daily. 90 tablet 1 06/29/[address] (PROTONIX) 20 MG TBEC Take 1 tablet by mouth daily. 90 tablet 1 06/29/20 24 Active metoprolol tartrate (LOPRESSOR) 25 MG TABS Take 1 tablet by mouth 2 (two) times daily. 180 tablet 1 06/29/20 24 Active insulin glargine (LANTUS SOLOSTAR) 100 UNIT/ML SOPN pen 20 units SC in am 15 mL 5 06/29/20 24 Active lisinopril (PRINIVIL,ZESTR IL) 40 mg TABS Take 1 tablet by mouth daily. 90 tablet 1 06/29/20 24 Active albuterol 108 (90 Base) mcg/puff inhalerIndicati ons:Chronic Obstructive Pulmonary Disease Use 2 puffs every 6 (six) hours as needed. Indications: Chronic Obstructive Lung Disease 18 g 5 06/29/20 24 Active canagliflozin (INVOKANA) 100 mg tablet Take 1 tablet by mouth daily. 1 po daily 90 tablet 1 06/29/20 24 Active NOVOLOG FLEXPEN 100 UNIT/ML SOPN pen Up to 15 unts Sc tid before meals ( based on sliding scale ) 15 mL 5 06/29/20 24 Active Respiratory Therapy Supplies (NEBULIZER/TUBI NG/MOUTHPIECE) KIT Uses 4 times a day as needed for shortness of breath, wheezing 1 kit 06/29/20 Active ipratropium-alb uterol (DUONEB) 0.5-2.5 (3) MG/3ML nebulizer solution INHALE THREE MILLILITERS VIA NEBULIZATION BY MOUTH FOUR TIMES A DAY NEEDED 180 mL 1 06/30/20 24 Active Additional Information Patient not taking.Informant: Self, Reported on 07/26/2024 aspirin 81 mg CHEW Chew 1 tablet by mouth daily. 07/10/20 24 Active clopidogrel (PLAVIX) 75 mg TABS Take 1 tablet by mouth daily. 90 tablet 1 07/10/20 24 Active meclizine (ANTIVERT) 25 mg TABS Take 1 tablet by mouth 3 (three) times daily as needed. 90 tablet 2 08/26/20 24 Active LORazepam (ATIVAN) 1 mg tabletIndicatio ns:Anxiety TAKE 1 TABLET BY MOUTH TWICE A DAY NEEDED 60 tablet 08/27/20 24 Active torsemide (DEMADEX) 20 MG TABS TAKE 2 TABLETS BY MOUTH DAILY 180 tablet 08/30/20 24 Active lancets thin misc (ONETOUCH DELICA PLUS [id number]) USE TO CHECK BLOOD SUGAR 4 TO 5 TIMES DAILY 150 lancet 11 09/09/19 25 Active Alcohol Swabs (ALCOHOL SWABS) 70 % pad For topical use with insulin injection up to four times a day. 200 each 10/12/19 25 Active FreeStyle Leonard 3 Continuous Glucose Sensor (FREESTYLE LEONARD 3 SENSOR)Indicati ons:Type 2 diabetes mellitus with stage 4 chronic kidney disease, with long-term current use of insulin (HCC) Change sensor every 14 days. Use to monitor blood sugar continuously. 2 each 10/12/19 25 Active pramipexole (MIRAPEX) 0.25 MG TABS Take 1 Tablet by mouth 3 times daily. 180 tablet 1 03/24/20 25 Active pramipexole (MIRAPEX) 0.25 MG TABS Take 1 Tablet by mouth 3 times daily. 180 tablet 01/26/20 25 2024 Discontinued Active Problems Problem Noted Date Diagnosed Date Presence of Amulet left atrial appendage closure device 08/24/2024 Personal history of renal cancer 06/30/2024 Falls 01/21/2024 Legal blindness, as defined in [place] 10/20/2023 Chronic anticoagulation 10/18/2023 Type 2 diabetes mellitus wit h stage 3b chronic kidney disease, with long-term current use of insulin 10/01/2023 Thrombocytopenia, unspecified 09/11/2023 Bilateral leg edema 03/25/2023 Paroxysmal atrial fibrillation 02/06/2023 HTN (hypertension), benign 10/18/2021 Mixed hyperlipidemia 10/18/2021 Parkinson's disease, unspeci fied whether dyskinesia present, unspecified whether manifestations fluctuate 04/28/2020 Current smoker 04/28/2020 Lumbosacral radiculopathy 02/20/2020 Chronic obstructive pulmonary disease 03/31/2019 Chronic neck pain 05/21/2017 OAB (overactive bladder) 08/22/2016 Anxiety 08/21/2016 Resolved Problems Problem Noted Date Diagnosed Date Resolved Date Atrial fibrillation, persistent 01/21/2024 06/30/2024 Gram-positive cocci bacterem ia- Rothia mucilaginosa, presumed contaminant 10/19/202311/09 Current chronic use of systemic steroids 10/19/2023 11/10/2023 Hematoma of iliacus muscle, left, initial encounter 10/18/2023 11/10/2023 Neutrophilic leukocytosis 10/18/2023 Acute on chronic diastolic heart failure 10/18/2023 11/10/2023 Diabetes mellitus, type 2 10/18/2023 COPD with acute exacerbation 10/02/2023 10/09/2023 Acute respiratory failure with hypoxia 10/01/2023 10/09/2023 Sepsis 10/01/2023 11/10/2023 COVID-19 virus infection 10/01/202306/2024 Influenza A 10/01/2023 10/18/2023 Hypomagnesemia 10/01/2023 11/10/2023 Cellulitis of left upper extremity 10/01/2023 11/10/2023 Failure to thrive in adult 09/13/2023 0 09/23/2023 Hyperosmolar hyperglycemic state (HHS) 09/06/2023 09/23/2023 CKD (chronic kidney disease), stage IV 09/06/2023 11/10/2023 Generalized weakness 09/06/2023 024 Acute renal failure superimp osed on stage 3 chronic kidney disease 03/20/2022 11/12/2023 Screening for colon cancer 01/08/2022 0 03/19/2022 Diabetic peripheral neuropathy 11/06/2021 03/25/2023 Precordial chest pain 10/18/20212021 Renal cell cancer (HCC) Right Dr Sae Arthur 04/28/2020 11/07/2021 Elevated troponin 03/05/2020 03/16/2020 Paroxysmal atrial fibrillation (HCC)-Eliquis 0 09/23/2023 Malignant neoplasm of right kidney, except renal pelvis 02/21/2020 06/30/2024 Cancer Staging:Clinical stage from 04/24/2020:Stage Unknown(cT1a, cNX, cM0) - Signed by Viet Lutz MD on 04/24/2020 CKD (chronic kidney disease) , symptom management only, stage 2 (mild) 03/31/2019 11/08/19 22 Tremor of face and hands 09/19/201712/2023 Chronic bilateral low back p ain without sciatica 05/21/2017 03/02/2020 Pre-operative cardiovascular examination-for spinal surgery 09/30/2016 05/29/2020 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, without long-term current use of insulin 08/21/2016 07/23/2023 Mixed hyperlipidemia 08/21/2016 022 Inadequately controlled diabetes mellitus 06/30/2024 Anxiety state 08/21/2016 Multiple benign polyps of large intestine 12/18/2016 Cellulitis of left lower leg 09/11/2023 Venous stasis ulcer limited to breakdown of skin without varicose veins, unspecified site 09/11/2023 Acute on chronic heart failu re, unspecified heart failure type 11/12/2023 Atrial fibrillation with RVR 09/23/2023 Acute hyperglycemia 09/22/19 24 Encounters Date Type Department Care Team Description 04/06/2025 Telephone [facility] [address] [place] [address] Centralized, Prior Authorization 03/23/2025 Refill [facility] [address] [place] [address] Sofia Bruner MD 03/23/2025 [facility] [place] [address] [place] [id number] Munir Romero MD 03/09/2025 Refill [facility] [address] [place] [address] Sofia Bruner MD 03/08/2025 Refill [facility] [address] [place] [address] Sofia Bruner MD 02/24/2025 Telephone [facility] [address] [place] [address] Sofia Bruner MD 02/23/2025 Refill [facility] [address] [place] [address] Sofia Bruner MD 02/11/2025 Telephone [facility] [address] [place] [address] Carolyn Jansen, Registered Nurse 01/24/2025 Refill [facility] [place] [address] [place] [address] Munir Romero MD 01/18/2025 Refill [facility] [address] [place] [address] Sofia Bruner MD 01/17/2025 Refill [facility] [address] [place] [address] Sofia Bruner MD from Last 3 Months Immunizations Immunization Administration Dates Next Due Pneumococcal Conjugate (PCV20) Prevnar 20 2022 Pneumococcal Polysaccharide (PPV23) Pneumovax-23 05/25/2018 Tdap (Tetanus, Diphtheria & Pertussis) 9 Family History Medical History Relation Name Comments Diabetes Mother Heart Disease Mother High BP Mother Parkisnons Mother Heart Disease Sister High BP Sister Other Sister Relation Name Status Comments Father (Age 93) Maternal Grandfather Maternal Grandmother Mother (Age 74) Paternal Grandfather Paternal Grandmother Sister Alive Social History Tobacco Use Types Packs/Day Years Used Date Smoking Tobacco: Every Day Cigarettes 0.5 22 Smokeless Tobacco: Never Tobacco Cessation:Ready to Q uit: Not Asked; Counseling Given: Not Answered Alcohol Use Standard Drinks/Week Comments No 0 [...] AM EDT Sexual Orientation Not on file Last Filed Vital Signs Vital Sign Reading Time Taken Comments Blood Pressure 136/82 07/26/2024 10:39 AM EST Pulse 57 07/26/2024 10:39 AM EST Temperature 36.1 C (96.9 F) 07/09/2024 8:49 AM EDT Respiratory Rate 18 07/09/2024 8:49 AM EDT Oxygen Saturation 92% 07/09/2024 8:49 AM EDT Inhaled Oxygen Concentration - - Weight 110.2 kg (243 lb) 07/26/2024 10:39 AM EST Height 175.3 cm (5' 9 ) 07/26/2024 10:39 AM EST Body Mass Index 35.88 07/26/2024 10:39 AM EST Plan of Treatment Health Maintenance Due Date Last Done Comments Eye Exam 1955 Shingrix (#1) 2006 RSV Vaccine (60+ or ) (1 - Risk 60-74 years 1-dose series) 2016 Foot Exam 09/08/2024 GFR 09/08/2024 07/08/2024, 05/09, 01/21/2024, Additional history exists Microalb/Creat Ratio 09/08/2024 11/19/2023, 11/10/2023, 08/12/2023, Additional history exists Cholesterol Diabetic 11/18/2024 11/19/2023, 11/19/2023, 07/21/2023, Additional history exists PSA YEARLY 11/18/2024 11/19/2023, 08/08, 04/18/2021, Additional history exists Wellness 65 and over 12/07/2024 12/29/2023, 12/23/2022, 11/06/2021, Additional history exists HbA1c 01/06/2025 07/09/2024, 06/09, 11/19/2023, Additional history exists COLONOSCOPY 5 YEARS 01/08/2027 01/08/2022, 01/08/2022, 09/30/2016 DTap,Tdap,and Td (2 - Td or Tdap) 03/29/2029 03/29/2019 Hepatitis C Screening Completed 06/08/2018 Influenza Vaccine Discontinued 10/29/2018 (Refused) Pneumococcal 0-49 Discontinued 07/22/2023, 05/25/2018 Pneumococcal 50+ Completed 07/22/2023, 05/25/2018 Abdominal Aortic Aneurysm Screening Completed 12/31/2023, 12/31/2023, 11/24/2023, Additional history exists Lung Cancer Screening Discontinued 12/31/2023 , 11/14/2022, 11/13/2021, Additional history exists HPV Aged Out No longer eligi ble based on patient's age to complete this topic Meningococcal conjugate valent 4 (MCV4) Aged Out No longer eligible based on patient's age to complete this topic RSV Immunization (<20 months) Aged Out No longer eligible based on patient's age to complete this topic Goals Goal Patient Goal Type Associated Problems [...] 1:59 PM EST) Sofia Abbott MD Note: [email or web address] Patient has no barriers to completing goals Self-Managemen t Not on track( 2:00 PM EST) Sofia Abbott MD Note: Legally blind Patient working to improve diet Self-Managemen t Not on track(02/26/2 020 2:00 PM EST) No Sofia Bruner MD Patient is monitoring Blood Pressure weekly Self-Managemen t On track( 020 2:00 PM EST) Sofia Abbott MD Note: Sample Blood Pressure Log Date Time Systolic Diastolic 1 2 3 4 5 [email or web address].nhlbi.[email or web address] Medical Devices Implanted Type Area Interventional Neuroradiologist Device Identifier Shelf Expiration Date Model / Serial / Lot Device Aaa Amulet 34mm - [id number] Implanted:Qty : 1 on 07/08/2024 by Bradley Hammond MD at [facility] Miscellaneous Left: Heart Arigo 09/07/2027 [id number] / / [id number] Procedures Procedure Name Priority Date/Time Associated Diagnosis Comments HEMOGLOBIN A1C Routine 07/09/2024 5:08 AM EDT BAMP (NA,K,CL,CO2,GLU,BUN ,CREAT,CA) STAT 07/08/2024 7:[address] CHEST WO CONTRAST Routine 12/31/2023 5:50 PM EDT Urge incontinence Hypertension, essential History of malignant neoplasm of kidney excluding renal pelvis Diabetes mellitus without complication (HCC) Stress incontinence, male Other specified disorders of kidney and ureter Asymptomatic microscopic hematuria Malignant neoplasm of right kidney, except renal pelvis (HCC) MICROALBUMIN, URINE RANDOM (INCLUDES MALB/CREAT RATIO) Routine 11/19/2023 3:36 PM EDT CKD (chronic kidney disease) stage 4, GFR 15-29 ml/min (HCC) LIPID PANEL (CHOL, TRIG, HDL, LDL) Routine 11/19/2023 3:36 PM EDT Type 2 diabetes mellitus with stage 3b chronic kidney disease, with long-term current use of insulin (HCC) PROSTATIC SPECIF AG-BLOOD Routine 11/19/2023 3:36 PM EDT Screening for prostate cancer COLONOSCOPY PROCEDURE Routine 01/08/2022 9:30 AM EDT Screening for colon cancer History of colonic polyps HEPATITIS C ANTIBODY WITH REFLEX TO HCV QUANT NAAT Timed 06/08/2018 9:15 AM EDT Need for hepatitis C screening test from Last 3 Months or Most Recently Relevant to Health Maintenance Results * (ABNORMAL) HEMOGLOBIN A1C (07/09/2024 5:08 AM EDT) HEMOGLOBIN A1C 7.6(H) 4.2 - 5.6 % [facility] EST AVERAGE GLUCOSE 171 mg/dL [facility] Comment: (NOTE) REFERENCE RANGE: Normal: 4.0-5.6% Pre-diabetes: 5.7-6.4% Provisional diagnosis of diabetes: >6.4% Hgb F>10% and anything which shortens red cell survival, such as hemolytic anemia, or unstable hemoglobin variants such as HbSS, HbSC, or HbCC, will lower the HbA1c value associated with a given level of glycemic control. Tested at: [facility] [place] [id number] Blood 07/09/2024 5:08 AM EDT 07/09/2024 5:48 AM EDT us Tessa Ernst DO LAB BLOOD ORDERABLES Final Res ult [facility] [address] [place] [id number] [facility] [place] [address] [place] [address] * (ABNORMAL) BMP (Na,K,Cl,CO2,Glu,BUN,Creat,Ca) (07/08/2024 7:04 AM EDT) BLD UREA NITROGEN 41(H) 8 - 26 mg/dL [facility] SODIUM 135 135 - 145 mmol/L [facility] POTASSIUM 3.5(L) 3.6 - 5.1 mmol/L [facility] CHLORIDE 94(L) 98 - 111 mmol/L [facility] CO2 30 21 - 31 mmol/L [facility] GLUCOSE, RANDOM 123(H) 70 - 99 mg/dL [facility] CREATININE 2.21(H) 0.70 - 1.30 mg/dL [facility] ANION GAP 11 4 - 16 mmol/L [facility] [place] CALCIUM 8.8 8.5 - 10.4 mg/dL [facility] ESTIMATED GFR 32(L) >59 mL/min/1.7 3 m2 [facility] Comment: Estimated GFR was calculated using the CKD-EPI cr (2020) equation refit without race. The equation is recommended by the National Kidney Foundation - [place] [employer] of Nephrology Task Force. 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 New linear subpleural opacity in the medial right apex favored to be inflammatory in the nature. Short-term follow-up recommended in 1-3 months. No evidence of metastatic disease. NOTE: Report marked for documented transmission to the ordering physician per [facility] Radiology department protocol Narrative 12/31/2023 6:03 PM EDT HISTORY: Urge incontinence;Essential (primary) hypertension;Personal history of other malignant neoplasm of kidney;Type 2 diabetes mellitus without complications;Stress incontinence (female) (male);Other specified disorders of kidney and ureter;Asymptomatic microscopic hematuria;Malignant neoplasm of right kidney, except renal pelvis COMPARISON: 11/14/2022, 11/13/2021 TECHNIQUE: Noncontrast multiplanar CT images of the chest NOTE: If there are questions about the content of this report, please contact [facility] radiology by calling [phone] FINDINGS: LUNGS/AIRWAYS: Upper lobe predominant centrilobular groundglass opacity and associated cavities as well as mild paraseptal emphysema. In the medial right lung apex there is a linear subpleural opacity that fills a previous cystic space (best seen on coronal series 901, image 89 and axial series 903 images 9, 10 and 11). PLEURA: Unremarkable. No pleural effusion or pneumothorax MEDIASTINUM/ELLEN: Several mildly enlarged mediastinal lymph nodes are not appreciably changed. Calcified left hilar granulomatous nodes are unchanged. HEART/PERICARDIUM: Severe coronary artery calcifications. Heart size is normal. VESSELS: Mild atherosclerotic calcifications without aneurysm CHEST WALL/LOWER NECK: Unremarkable UPPER ABDOMEN: Described on concurrent CT abdomen report BONES: Unremarkable OTHER: None Procedure Note Leroy Mejia MD - 12/31/2023 HISTORY: Urge incontinence;Essential (primary) hypertension;Personalhistory of other malignant neoplasm of kidney;Type 2 diabetes mellituswithout complications;Stress incontinence (female) (male);Other specifieddisorders of kidney and ureter;Asymptomatic microscopic hematuria;Malignant neoplasm of rightkidney, except renal pelvis COMPARISON: 11/14/2022, 11/13/2021 TECHNIQUE: Noncontrast multiplanar CT images of the chest NOTE: If there are questions about the content of this report, pleasecontact [facility] radiology by calling [phone] FINDINGS: LUNGS/AIRWAYS: Upper lobe predominant centrilobular groundglass opacityand associated cavities as well as mild paraseptal emphysema. In themedial right lung apex there is a linear subpleural opacity that fills aprevious cystic space (best seen on coronal series 901, image 89 and axial series 903 images 9, 10 and 11). PLEURA: Unremarkable. No pleural effusion or pneumothorax MEDIASTINUM/ELLEN: Several mildly enlarged mediastinal lymph nodes are notappreciably changed. Calcified left hilar granulomatous nodes areunchanged. HEART/PERICARDIUM: Severe coronary artery calcifications. Heart size isnormal. 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 New linear subpleural opacity in the medial right apex favored to beinflammatory in the nature. Short-term follow-up recommended in 1-3months. No evidence of metastatic disease. NOTE: Report marked for documented transmission to the ordering physicianper [facility] protocol Sae Arthur MD CT Final Result * Prostate Specific Antigen (11/19/2023 3:36 PM EDT) PROSTATIC SPECIF AG 0.72 <=4.00 ng/mL [facility] Comment: (NOTE) The Estelita Elecsys total PSA electrochemiluminescence (ECLIA) immunoassay is used. Results obtained with different test methods or kits cannot be used interchangeably. The Estelita method is approved for use as an aid in the detection of prostate cancer when used in conjunction with a digital rectal exam in individuals with a prostate aged 50 years or older. The assay is also indicated for the serial measurement of PSA to aid in the prognosis and management of prostate cancer patients. Elevated tPSA concentrations can only suggest the presence of prostate cancer until biopsy is performed. Levels may also be elevated in benign prostatic hyperplasia or inflammatory conditions of the prostate. Tested at: [facility], [place] [id number] Whole Blood 11/19/2023 3:36 PM EDT 11/19/2023 3:41 PM EDT Sofia Bruner MD LAB BLOOD ORDERABLES F inal Result [facility] [address] [place] [address] [facility] [place] [address] * (ABNORMAL) Microalbumin, Urine Random (includes MALB/Creat Ratio) (11/19/2023 3:36 PM EDT) MICROALBUMIN, UR 1,800.9 mg/L [facility] CREATININE, URINE RANDOM 46.6 mg/dL [facility] MICROALB/CREAT RATIO 3,865(H) 0 - 30 mg/g [facility] Comment:Tested at: [facility], [place] [facility] [employer] [id number] Urine URINE SPECIMEN / Unknown 11/19/2023 3:36 PM EDT 11/19/2023 3:41 PM EDT Ida Baird PA-C URINE ORDERABLES NO PER Final Result Performing Organization Address City/[facility]/ZIP Co de Phone Number [facility] [id number] [place] [address] [place] [address] * (ABNORMAL) Lipid Panel (CHOL, TRIG, HDL, LDL) (11/19/2023 3:36 PM EDT) [facility] CHOLESTEROL 187 <200 mg/dL [facility] TRIGLYCERIDE 253(H) <150 mg/dL [facility] Comment: Reference Interval: Fasting <150 mg/dL Non-Fasting <175 mg/dL HDL CHOLESTEROL 46(L) >50 mg/dL [facility] LDL CHOLESTEROL (CALCULATED) 90 <130 mg/dL [facility] Comment: Interpretive Guidelines: <100 Optimal 100-129 Near Optimal 130-159 Borderline High >159 High TOTAL NON HDL CHOL 141(H) <130 mg/dL [facility] Comment:Tested at [place] [address] Whole Blood 11/19/2023 3:36 PM EDT 11/19/2023 3:41 PM EDT Sofia Bruner MD LAB BLOOD ORDERABLES F inal Result Performing Organization Address City/[facility]/ZIP Co de Phone Number [facility] [id number] [place] [address] [place] [address] * Colonoscopy Procedure (01/08/2022 9:30 AM EDT) Narrative Lacy Kwok MD - 01/08/2022 9:30 AM EDT Lacy Kwok MD 01/08/2022 9:32 AM Patient: Chinmay Ardon Date of : 1955 Age: [age] year old Sex: male Unit: [facility] Room/Bed: BTENDO/ Location: [facility] Admitting Physician: LACY KWOK Primary Care Physician: Sofia Bruner MD HISTORY: The patient is a 66 year old male with history of Past Medical History: Diagnosis Date Anxiety state Arthropathy Chronic airway obstruction (HCC) Convulsions (HCC) Depressive disorder Diabetes mellitus (HCC) ED (erectile dysfunction) Esophageal reflux Hyperlipidemia Hypertriglyceridemia Legal blindness Obstructive chronic bronchitis with exacerbation (HCC) Seizure (HCC) Took medication until in 20's Tremor Unspecified essential hypertension Vertigo Indications: Screening for colonic neoplasia and History of colonic polyp(s) Colorectal Neoplasm Risk Assessment for this procedure: Average Risk ASA: ASA II Sedation: Deep/MAC Other: See anesthesia record DATE OF OPERATION: 01/08/2022 OPERATIVE SURGEON: Lacy Kwok MD The patient and I discussed that this is an elective procedure/surgery. We discussed the risks of the procedure/surgery, including but not limited to what is outlined in the signed informed consent. We also discussed the risk of pj COVID 19 while in the facility. We discussed the increased risk of a bad outcome should the patient contract COVID 19 during the post-procedural/post-operative period, given the patient s current health condition, chronic conditions, and the added risk of COVID 19 in light of these conditions. The patient and I also discussed the risk of further postponing the procedure/surgery and other treatment alternatives, including non-procedural/surgical treatments. Understanding all of the risks, benefits, and alternatives, the patient made an informed decision to proceed with the procedure/surgery. Pre Op Diagnosis: Screening colonoscopy Post Op Diagnosis: Multiple colon polyps. Procedures Performed: Colonoscopy with hot snare polypectomies Procedure Description: Patient required monitored anesthesia care. Once the patient was adequately sedated and the airway was secure the Olympus CF video colonoscope was advanced to the cecum in a well-prepped colon. The cecum was identified by the appendiceal orifice and the ileocecal valve. Mucosa in the cecum appeared normal. Ascending colon mucosa was normal. In the transverse colon there were a total of 3 polyps that were snared and removed with a hot polypectomy snare. The largest was a 1 cm polyp. The descending colon was normal. The proximal sigmoid colon revealed another 1 cm polyp that was snared and removed with a hot polypectomy snare. Remainder the colon was normal Complications: None Estimated Blood Loss: minimal to none Findings: Multiple colon polyps Plan: Follow-up pathology. Repeat colonoscopy 5 years Signed By: Lacy Kwok MD, 01/08/2022 Lacy Kwok MD PROCEDURE NOTE ORDERABLES Final Result * Hepatitis C Antibody (06/08/2018 9:15 AM EDT) HEPATITIS C AB Non Reactive Non-React [facility] Comment:Tested at: [facility], [address] [address] Whole blood specimen (specimen) 06/08/2018 9:15 AM EDT 06/08/2018 9:19 AM EDT Sofia Bruner MD LAB BLOOD ORDERABLES F inal Result [facility] [address] [place] [address] [place] [address] from Last 3 Months or Most Recently Relevant to Health Maintenance Insurance [address] [facility] [place] Advance Directives Documents on File Type Date Recorded 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 Advance Directives(Healthcar e Power of Press Bucker)/Living Will/MOLST 03/16/2024 2:23 PM HCPOA Advance Directives(Healthcar e Power of Press Bucker)/Living Will/MOLST 11/24/2023 3:51 PM HCPOA Power of Press Bucker 03/17/2020 2:28 PM HC PO A * Full Code (Latest Code Status on File) Date Activated Date Inactivated Comments 07/08/2024 11:30 AM 07/09/2024 1:19 PM * Full Code Date Activated Date Inactivated Comments 10/17/2023 11:22 PM 10/21/2023 3:10 PM * Full Code Date Activated Date Inactivated Comments 10/06/2023 2:30 PM 10/09/2023 1:49 PM * Full Code Date Activated Date Inactivated Comments 10/01/2023 8:53 PM 10/04/2023 3:17 PM * Full Code Date Activated Date Inactivated Comments 09/13/2023 2:08 PM 09/15/2023 3:51 PM Care Teams Carpentry Instructor Relationship Specialty Start Date End Date Sofia Bruner MD PCP - General Family Medicine 10/24/12
--- OUTSIDE RECORDS SUMMARY | 2025-04-09 07:38 | XMS_ITS | Encounter Summary ---
Author Organization [facility] Address [address] [place] [address] [place] [address] Phone Care Team Providers Care Flight Tower Dispatcher Name Role Phone Sofia Bruner MD Primary Care Provider Sofia Bruner MD Unavailable [phone] Nancy Garibay Unavailable Unavailable Sofia Bruner MD Unavailable [phone] Dima Crenshaw Registered Nurse Unavailable U navailable Reason for Visit * Reason Comments Refill Request Encounter Details Date Type Department Care Team (Late st Contact Info) Description 05/07/2023 Refill [facility] [address] [place] [address] Sofia Bruner MD [address] [place] [address] Anxiety Social History Tobacco Use [...] 1:59 PM EST) Sofia Abbott MD Note: [email or web address] Patient has no barriers to completing goals [...] documented as of this encounter Care Teams Flight Tower Dispatcher Relationship Specialty Start Date End Date Sofia Bruner MD PCP - General Family Medicine 10/24/12 Sofia Bruner MD [address] [place] [address] PCP - Madhu GORMAN Attributed Physician 02/06/21 01/06/24 Sofia Bruner MD [address] [place] [address] PCP - Krish GORMAN Attributed Physician 02/07/24 09/07/24 Nancy Garibay Consumer Experience Consultant Complex Care Management 09/18/23 01/05/24 Dima Crenshaw, Registered Nurse Registered Nurse 07/12/24 07/13/24 documented as of this encounter
--- OUTSIDE RECORDS SUMMARY | 2025-04-09 07:38 | XMS_ITS ---
Author Organization [facility] Address [address] [place] [address] Phone Care Team Providers Care Manager Games Name Role Phone Sofia Bruner MD Primary Care Provider Active Problems * This document contains information received from the source organization and may not represent a complete record from that organization. Problem Noted Date Diagnosed Date Presence of [...] 05/21/2017 OAB (overactive bladder) 08/22/2016 Anxiety 08/21/2016 Current Treatment and Therapy Plans No current plan information found. Past Treatment and Therapy Plans No past plan information found. 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
--- OUTSIDE RECORDS SUMMARY | 2025-04-09 07:38 | XMS_ITS | Encounter Summary ---
Author Organization [facility] Address [facility] [address] Phone Care Team Providers Care Rn Ambulatory Name Role Phone Sofia Bruner MD Primary Care Provider Sofia Bruner MD Unavailable [phone] Dima Crenshaw Registered Nurse Unavailable U navailable Reason for Referral * MRI/CAT Scan (Routine) - Closed Specialty Diagnoses / Procedures Referred By Contac t Referred To Contact Radiology Diagnoses Other specified disorders of kidney and ureter Urge incontinence Stress incontinence, male Personal history of other malignant neoplasm of kidney Diabetes mellitus without complication Malignant neoplasm of right kidney, except renal pelvis Asymptomatic microscopic hematuria Primary hypertension Procedures CT CHEST WO CONTRAST Sae Arthur MD Phone: tel: fax: Referral ID Status Reason Start Date Expiration Date V isits Requested Visits Authorized [id number] Closed Specialty Services Required 03/09/2024 03/09/2025 1 1 Encounter Details Date Type Department Care Team (Late st Contact Info) Description 03/09/2024 Orders Only [facility] Scheduling [address] [place] [address] [place] [address] [place] [address] Other specified disorders of kidney and ureter (Primary Dx); Urge incontinence; Stress incontinence, male; Personal history of other malignant neoplasm of kidney; Diabetes mellitus without complication (HCC); Malignant neoplasm of right kidney, except renal pelvis (HCC); Asymptomatic microscopic hematuria; Primary hypertension Social History Tobacco Use Types Packs/Day Years [...] car, in a tent, in an overnight alf, or temporarily in someone else's home (i.e. [...] car, in a tent, in an overnight alf, or temporarily in someone else's home (i.e. [...] Type Priority Associated Diagnoses Orde r Schedule CT CHEST WO CONTRAST Imaging Routine Other specified disorders of kidney and ureter Urge incontinence Stress incontinence, male Personal history of other malignant neoplasm of kidney Diabetes mellitus without complication (HCC) Malignant neoplasm of right kidney, except renal pelvis (HCC) Asymptomatic microscopic hematuria Primary hypertension Expected: 03/09/2024, Expires: 03/09/2025 documented as of this encounter Goals Goal [...] 1:59 PM EST) Sofia Abbott MD Note: [email or web address] Patient has no barriers to completing goals [...] as of this encounter Visit Diagnoses Diagnosis Other specified disorders of kidney and ureter- Primary Urge incontinence Stress incontinence, male Personal history of other malignant neoplasm of kidney Diabetes mellitus without complication Type II or unspecified type diabetes mellitus without mention of complication, not stated as uncontrolled Malignant neoplasm of right kidney, except renal pelvis Malignant neoplasm of kidney, except pelvis Asymptomatic microscopic hematuria Primary hypertension Unspecified essential hypertension documented in this encounter Additional Health Concerns Assessment Noted Time PHQ-9 Depression Total Score: 2 09/18/19 24 12:35 PM EST PHQ-2 Depression Total Score: 0 12/29/19 24 4:17 PM EDT documented as of this encounter Care Teams Rn Ambulatory Relationship Specialty Start Date End Date Sofia Bruner MD PCP - General Family Medicine 10/24/12 Sofia Bruner MD [address] [place] [address] PCP - Krish GORMAN Attributed Physician 02/07/24 09/07/24 Dima Crenshaw, Registered Nurse Registered Nurse 07/12/24 07/13/24 documented as of this encounter
--- OUTSIDE RECORDS SUMMARY | 2025-04-09 07:38 | XMS_ITS | Encounter Summary ---
Author Organization [facility] Address [address] [place] [address] [place] [address] Phone Care Team Providers Care Level Glass Forming Machine Operator Name Role Phone Sofia Bruner MD Primary Care Provider Sofia Bruner MD Unavailable [phone] Nancy Garibay Unavailable Unavailable Sofia Bruner MD Unavailable [phone] Dima Crenshaw Registered Nurse Unavailable U navailable Reason for Visit * Reason Comments Refill Request Encounter Details Date Type Department Care Team (Late st Contact Info) Description 06/01/2023 Refill [facility] [address] [place] [address] Munir Romero MD [address] [place] [address] Social History Tobacco Use Types [...] 1:59 PM EST) Sofia Abbott MD Note: [email or web address] Patient has no barriers to completing goals [...] filedocumented in this encounter Additional Health Concerns Infection [...] documented as of this encounter Care Teams Level Glass Forming Machine Operator Relationship Specialty Start Date End Date Sofia Bruner MD PCP - General Family Medicine 10/24/12 Sofia Bruner MD [address] [place] [address] PCP - Madhu GORMAN Attributed Physician 02/06/21 01/06/24 Sofia Bruner MD [address] [place] [address] PCP - Krish GORMAN Attributed Physician 02/07/24 09/07/24 Nancy Garibay Senior Client Advisor Complex Care Management 09/18/23 01/05/24 Dima Crenshaw, Registered Nurse Registered Nurse 07/12/24 07/13/24 documented as of this encounter
--- OUTSIDE RECORDS SUMMARY | 2025-04-09 07:38 | XMS_ITS | Clinical Summary ---
Author Organization [facility] Address [address] [place] [address] Phone Care Team Providers Care Auto Accessories Installer Name Role Phone Moises KEYS, Joann Trevino Conditions or Problems Problem Name Problem Code Onset Date Status Entry Date Provider Comment Standard Description Annotate BACK PAIN, LOW 340163107 (SNOMED CT) 03/29 Active 03/29 Joann De Leon NP Low back pain OVERWEIGHT 950622963 (SNOMED CT) 03/29 Active 03/29 Miguelina Shelley MA Overweight Thrombocytope lissy, unspecified D69.6 (ICD-10-CM ) 09/11 Active 03/26 Miguelina Shelley MA Thrombocytopeni a, unspecified Imported from [facility]: [employer] (26-Mar-20 at 08:40:32 AM) Paroxysmal atrial fibrillation 808321355 (SNOMED CT) 10/18 Active 03/26 Miguelina Shelley MA Paroxysmal atrial fibrillation Imported from [facility]: [employer] (26-Mar-20 at 08:40:32 AM) Parkinson's disease, unspecified whether dyskinesia present, unspecified whether manifestation s fluctuate G20.A1 (ICD-10-CM ) 10/18 Active 03/26 Miguelina Shelley MA Parkinson's disease without dyskinesia, without mention of fluctuations Imported from [facility]: [employer] (26-Mar-20 at 08:40:32 AM) OAB (overactive bladder) N32.81 (ICD-10-CM ) 10/23 Active 03/26 Miguelina Shelley MA Overactive bladder Imported from [facility]: [employer] (26-Mar-20 at 08:40:32 AM) Malignant neoplasm of right kidney, except renal pelvis C64.1 (ICD-10-CM ) 10/01 Active 03/26 Miguelina Shelley MA Malignant neoplasm of right kidney, except renal pelvis Imported from [facility] (26-Mar-20 at 08:40:32 AM) Lumbosacral radiculopathy 1739864 (SNOMED CT) 02/19 Active 03/26 Miguelina Shelley MA Lumbosacral radiculopathy Imported from [facility] (26-Mar-20 at 08:40:32 AM) Legal blindness, as defined in [place] H54.8 (ICD-10-CM ) 10/20 Active 03/26 Miguelina Shelley MA Legal blindness, as defined in [place] Imported from [facility] (26-Mar-20 at 08:40:32 AM) Inadequately controlled diabetes mellitus E11.65 (ICD-10-CM ) 11/09 Active 03/26 Miguelina Shelley MA Type 2 diabetes mellitus with hyperglycemia Imported from [facility] (26-Mar-20 at 08:40:32 AM) Falls W19.xxxA (ICD-10-CM ) 01/20 Active 03/26 Miguelina Shelley MA Unspecified fall, initial encounter Imported from [facility] (26-Mar-20 at 08:40:32 AM) Current smoker F17.200 (ICD-10-CM ) 10/01 Active 03/26 Miguelina Shelley MA Nicotine dependence, unspecified, uncomplicated Imported from [facility] (26-Mar-20 at 08:40:32 AM) Chronic neck pain M54.2 (ICD-10-CM ) 03/04 Active 03/26 Miguelina Shelley MA Cervicalgia Imported from [facility] (26-Mar-20 at 08:40:32 AM) Chronic anticoagulati on Z79.01 (ICD-10-CM ) 10/18 Active 03/26 Miguelina Shelley MA terminal manager (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 Imported from [facility] (26-Mar-20 at 08:40:32 AM) Bilateral leg edema R60.0 (ICD-10-CM ) 10/18 Active 03/26 Miguelina Shelley MA Localized edema Imported from [facility]: [employer] (26-Mar-20 at 08:40:32 AM) Atrial fibrillation, persistent I48.19 (ICD-10-CM ) 01/20 Active 03/26 Miguelina Shelley MA Other persistent atrial fibrillation Imported from [facility]: [employer] (26-Mar-20 at 08:40:32 AM) Anxiety 56419473 (SNOMED CT) 09/13 Active 03/26 Miguelina Shelley MA Anxiety Imported from [facility]: [employer] (26-Mar-20 at 08:40:32 AM) LUMBAR DISC HERNIATION WITH RADICULOPATHY 147640402 (SNOMED CT) 03/27 Active 03/27 Shyanne PAYTONC Lumbar disc prolapse with radiculopathy SPONDYLOSIS, LUMBAR, WITH RADICULOPATHY 306895522 (SNOMED CT) 03/27 Active 03/27 Shyanne INIGUEZ-C Lumbosacral spondylosis with radiculopathy LOWER BACK PAIN 272441690 (SNOMED CT) 03/27 Active 03/27 Shyanne INIGUEZ-C Low back pain LUMBAR RADICULOPATHY 800883660 (SNOMED CT) 03/27 Active 03/27 Shyanne INIGUEZ-C Lumbar radiculopathy LUMBAR STENOSIS, L1-L5, W/O NEUROGENIC CLAUDICATION M48.061 (ICD-10-CM ) 02/27 Active 02/27 Melani Coppola MA Spinal stenosis, lumbar region without neurogenic claudication Mixed hyperlipidemi a 891064425 (SNOMED CT) 10/22 Active 02/27 Melani Coppola MA Mixed hyperlipidemia Imported from [facility]: [employer] (28-Feb-20 at 01:21:17 PM) Controlled type 2 diabetes mellitus without complication, without long-term current use of insulin E11.9 (ICD-10-CM ) 10/22 Active 02/27 Melani Coppola SHERIF Type 2 diabetes mellitus without complications Imported from [facility]: [employer] (28-Feb-20 at 01:21:17 PM) CKD (chronic kidney disease), symptom management only, stage 2 (mild) N18.2 (ICD-10-CM ) 03/31 Active 02/27 Melani Coppola MA Chronic kidney disease, stage 2 (mild) Imported from [facility]: [employer] (28-Feb-20 at 01:21:17 PM) Chronic obstructive pulmonary disease 22640074 (SNOMED CT) 03/31 Active 02/27 Melani Coppola MA Chronic obstructive pulmonary disease Imported from [employer]: [employer] (28-Feb-20 at 01:21:17 PM) Medications Medication Instructions Start Date Stop Date Generic Name NDC Provider METHOCARBAMOL 750 MG TABS 03/29 methocarbamol [id number] Joann Brown CLAIM ATTORNEY METHOCARBAMOL 750 MG TABS Take 1 tablet by mouth twice a day as needed muscle spasms 1 tablet TID PRN muscle spasms methocarbamol [id number] Joann Brown CLAIM ATTORNEY Tylenol 325 mg capsule acetaminophen 18080024028 Miguelina Shelley MA METFORMIN HCL 500 MG TABS 1 po tid 03/29 metformin 28298648202 Miguelina Shelley MA FENOFIBRATE 160 MG TABS TAKE ONE TABLET BY MOUTH DAILY 03/29 fenofibrate 25309289833 Miguelina Shelley MA PRAMIPEXOLE DIHYDROCHLORIDE 0.125 MG TABS Take 0.125 mg by mouth 3 (three) times daily. 03/29 pramipexole 27151389930 Miguelina Shelley MA LISINOPRIL 40 MG TABS TAKE ONE TABLET BY MOUTH DAILY 03/29 lisinopril 42429619719 Miguelina Shelley MA OXYBUTYNIN CHLORIDE ER 15 MG [id number] 1 po qd 03/29 oxybutynin chloride 75457783512 Miguelina Shelley MA LIDOCAINE 5 % PTCH 1 patch by Transdermal route every 12 (twelve) hours. 03/29 lidocaine 16072320570 Miguelina Shelley MA Psyllium (METAMUCIL FIBER PO) Take by mouth daily. 03/29 METAMUCIL FIBER PO Miguelina Shelley MA OMEPRAZOLE 40 MG CPDR Take 1 capsule by mouth daily. 03/29 omeprazole 04328463373 Miguelina Shelley MA FLUOCINONIDE 0.05 % CREA APPLY SPARINGLY TWO OR THREE TIMES DAILY NEEDED 03/29 fluocinonide 17297623823 Miguelina Shelley MA FREESTYLE JERI 3 SENSOR blood-glucose sensor 24191453249 Miguelina Shelley MA ONETOUCH DELICA PLUS [id number] lancets 47412667591 Miguelina Shelley MA METOPROLOL TARTRATE 25 MG TABS metoprolol tartrate 48402925075 Miguelina Shelley MA ELIQUIS 5 MG TABS apixaban 07720968165 C hrkyle Shelley MA INVOKANA 100 MG TABS canagliflozin 02410895214 Miugelina Shelley MA BD PEN NEEDLE MINI U/F 31G X 5 MM pen needle, diabetic 31634359995 Miguelina Shelley MA ROSUVASTATIN CALCIUM 5 MG TABS rosuvastatin 89058042688 Vance Shelley MA CARBIDOPA-LEVODOP A 25-100 MG TABS carbidopa-levod op a 67712715921 Miguelina Shelley MA LORAZEPAM 1 MG TABS lorazepam 49338552596 Miguelina Shelley MA MECLIZINE HCL 25 MG TABS meclizine 19450224645 Miguelina Shelley MA ONETOUCH ULTRA TEST STRP blood sugar diagnostic 02729032664 Miguelina Shelley MA CEPHALEXIN 250 MG CAPS cephalexin 26047769935 Miguelina Shelley MA FUROSEMIDE 40 MG TABS furosemide 78610911441 Miguelina Shelley MA BD SWAB SINGLE USE REGULAR PADS alcohol swabs 68279137034 Vance Shelley MA OXYCODONE HCL 5 MG TABS oxycodone 21795621594 Miguelina Shelley MA TORSEMIDE 20 MG TABS torsemide 72280927905 Miguelina Shelley MA PRAMIPEXOLE DIHYDROCHLORIDE 0.25 MG TABS pramipexole 72878030773 Miguelina Shelley MA LISINOPRIL 40 MG TABS lisinopril 56875180348 Miguelina Shelley MA METHOCARBAMOL 750 MG TABS 03/29 methocarbamol 53064034066 Miguelina Shelley MA PANTOPRAZOLE SODIUM 20 MG TBEC pantoprazole 26117734236 Chri robert Shelley MA PREGABALIN 100 MG CAPS Take 1 capsule by mouth 2 (two) times daily for 30 days. 04/15 pregabalin (LYRICA) 100 MG CAPS 34145431919 Melani Coppola MA OXYCODONE-ACETAMI NOPHEN 10-325 MG TABS 1 po bid prn 04/02 oxycodone-acetami nophen (PERCOCET) 10-325 MG TABS 81460547511 Melani Coppola MA APIXABAN (ELIQUIS) 5 MG TABS Take 1 tablet by mouth 2 (two) times daily for 30 days. 04/05 apixaban (ELIQUIS) 5 mg TABS Melani Coppola MA ALBUTEROL SULFATE HFA 108 (90 Base) MCG/ACT AERS Use 2 puffs every 6 (six) hours as needed. 03/27 albuterol 108 (90 Base) mcg/puff AERS 47268661288 Melani Coppola MA ESCITALOPRAM OXALATE 10 MG TABS TAKE ONE TABLET BY MOUTH EVERY EVENING 03/27 escitalopram (LEXAPRO) 10 MG TABS 76604259158 Melani Coppola MA CYCLOBENZAPRINE HCL 10 MG TABS Take 1 tablet by mouth 3 (three) times daily as needed (back pain). 03/27 cyclobenzaprine (FLEXERIL) 10 MG TABS 50758750864 Melani Coppola MA CARBIDOPA-LEVODOP A 25-100 MG TABS Take 1 tablet by mouth 3 (three) times daily. 03/27 carbidopa-levodop a (SINEMET) 25-100 MG TABS 38570176718 eMlani Coppola MA ATENOLOL-CHLORTHA LIDONE 50-25 MG TABS TAKE ONE TABLET BY MOUTH DAILY 03/27 atenolol-chlortha lidone 50-25 MG TABS 70006398567 Melani Coppola MA ASPIRIN 81 MG TBEC Take 81 mg by mouth daily. 03/27 aspirin 81 MG TBEC 50682319862 Melani Coppola MA AMLODIPINE BESYLATE 10 MG TABS TAKE ONE TABLET BY MOUTH DAILY 03/27 amlodipine (NORVASC) 10 MG TABS 54814033186 Melani Coppola MA PREGABALIN 100 MG CAPS Take 1 capsule by mouth 2 (two) times daily for 30 days. 04/15 pregabalin (LYRICA) 100 MG CAPS 14515869728 Jyothi Crum OXYCODONE-ACETAMI NOPHEN 10-325 MG TABS 1 po bid prn 04/02 oxycodone-acetami nophen (PERCOCET) 10-325 MG TABS 66682089239 Jyothi Crum apixaban (ELIQUIS) 5 mg TABS Take 1 tablet by mouth 2 (two) times daily for 30 days. 04/05 apixaban (ELIQUIS) 5 mg TABS Jyothi Crum ALBUTEROL SULFATE HFA 108 (90 Base) MCG/ACT AERS Use 2 puffs every 6 (six) hours as needed. 03/27 albuterol 108 (90 Base) mcg/puff AERS 11663005355 Jyothi Crum Psyllium (METAMUCIL FIBER PO) Take by mouth daily. 03/29 Psyllium (METAMUCIL FIBER PO) Melani Coppola MA PREDNISONE 10 MG TABS Take 4 tablets by mouth daily for 2 days, THEN 3 tablets daily for 2 days, THEN 2 tablets daily for 2 days, THEN 1 tablet daily for 2 days. 02/28 predniSONE (DELTASONE) 10 MG TABS 11186070166 Melani Coppola MA PRAMIPEXOLE DIHYDROCHLORIDE 0.125 MG TABS Take 0.125 mg by mouth 3 (three) times daily. 03/29 pramipexole (MIRAPEX) 0.125 MG TABS 32044013575 Melani Coppola MA OXYBUTYNIN CHLORIDE ER 15 MG [id number] 1 po qd 03/29 oxybutynin 15 MG TB24 [id number] Melani Coppola MA OMEPRAZOLE 40 MG CPDR Take 1 capsule by mouth daily. 03/29 omeprazole (PRILOSEC) 40 MG CPDR 27780675938 Melani Coppola MA METFORMIN HCL 500 MG TABS 1 po tid 03/29 metFORMIN (GLUCOPHAGE) 500 MG TABS 17369165506 Melani Coppola MA LISINOPRIL 40 MG TABS TAKE ONE TABLET BY MOUTH DAILY 03/29 lisinopril (PRINIVIL,ZESTRIL ) 40 MG TABS 08772438861 Melani Coppola MA LIDOCAINE 5 % PTCH 1 patch by Transdermal route every 12 (twelve) hours. 03/29 lidocaine (LIDODERM) 5 % PTCH 52384398299 Melani Coppola MA FLUOCINONIDE 0.05 % CREA APPLY SPARINGLY TWO OR THREE TIMES DAILY NEEDED 03/29 fluocinonide (LIDEX) 0.05 % CREA 59291426670 Melani Coppola MA FENOFIBRATE 160 MG TABS TAKE ONE TABLET BY MOUTH DAILY 03/29 fenofibrate (LOFIBRA) 160 MG TABS 08905640192 Melani Coppola MA ESCITALOPRAM OXALATE 10 MG TABS TAKE ONE TABLET BY MOUTH EVERY EVENING 03/27 escitalopram (LEXAPRO) 10 MG TABS 58578969423 Melani Coppola MA CYCLOBENZAPRINE HCL 10 MG TABS Take 1 tablet by mouth 3 (three) times daily as needed (back pain). 03/27 cyclobenzaprine (FLEXERIL) 10 MG TABS 10403251802 Melani Coppola MA CARBIDOPA-LEVODOP A 25-100 MG TABS Take 1 tablet by mouth 3 (three) times daily. 03/27 carbidopa-levodop a (SINEMET) 25-100 MG TABS 54622824032 Melani Coppola MA ATENOLOL-CHLORTHA LIDONE 50-25 MG TABS TAKE ONE TABLET BY MOUTH DAILY 03/27 atenolol-chlortha lidone 50-25 MG TABS 59241149067 Melani Coppola MA ASPIRIN 81 MG TBEC Take 81 mg by mouth daily. 02/28 aspirin 81 MG TBEC 14797337032 Melani Coppola MA AMLODIPINE BESYLATE 10 MG TABS TAKE ONE TABLET BY MOUTH DAILY 03/27 amlodipine (NORVASC) 10 MG TABS 68232273263 Melani Coppola MA Medications Administered No information available. Allergies, Adverse Reactions, Alerts Allergy Name Reaction Description Start Date Severity Statu s Provider PEANUT-CONTAINING DRUG PRODUCTS Mild Miguelina kirby MA PEANUT (FOOD) GI Upset Mild Ramon Shelley MA ATORVASTATIN Dizziness Mild Melani Guerreroff SHERIF Results No information available. Plan of Care Type Date Detail Pending order X-ray Lumbar Fle xion & Extension Pending order Scoliosis Standi ng AP/Lateral Pending order Dr. Garnica PT - Lumbar Pending order AMY x 1 injectio n & follow up with ordering MD Pending order X-Ray Scoliosis Standing Pending order X-Ray Scoliosis Standing Pending order X-Ray Lumbar Fle xion/Extension Pending order X-Ray Lumbar Fle xion/Extension Procedures Code Procedure Name Date Entry Date [id number] Tobacco Cessation Counseling Performed 2 Vital Signs Date Name Value Unit Description BMI (Body Mass Index) 38.83 kg/m2 Bod y Mass Index (Ratio) Height 69 [in_us] height E&M Weight Measured 263 [lb_av] weight E& M Weight Measured 263 [lb_av] weight E& M Immunizations No information available. Advance Directives No information available.
--- OUTSIDE RECORDS SUMMARY | 2025-04-09 07:38 | XMS_ITS | Encounter Summary ---
Author Organization [facility] Address [address] [place] [address] Phone Care Team Providers Care Pocket Secretary Assembler Name Role Phone Sofia Bruner MD Primary Care Provider Sofia Bruner MD Unavailable + [phone] Nancy Garibay Unavailable Unavailable Sofia Bruner MD Unavailable + [phone] Dima Crneshaw Registered Nurse Unavailable U navailable Encounter Details Date Type Department Care Team ([facility] st Contact Info) Description 06/18/2022 Collaborative Link Encounter [facility] [address] [place] [address] [phone] Social History Tobacco Use Types Packs/Day Years Used Date Smoking Tobacco: Heavy Smoker Cigarettes 0.5 22 Smokeless Tobacco: Never Alcohol Use Standard Drinks/Week Comments No 0 (1 standard drink = 0.6 oz pur e alcohol) PHQ-2 Answer Date Recorded PHQ-2 Total Score 2 02/09/2021 Sex and Gender Information Value Date Recorded Sex Assigned at Not on file Legal Sex Male 11:40 AM EST Gender Identity Male 06/08/2018 9:16 AM EDT Sexual Orientation Not on file COVID-19 Exposure Response Date Recorded In the last 10 days, have yo u been in contact with someone who was confirmed or suspected to have Coronavirus/COVID-19? Unable to assess 06/10/2022 7:18 AM EDT documented as of this encounter Functional Status * Are you deaf or do you have serious difficulty hearing? Answer Date of Assessment Author No 01/02/2022 9:00 AM EDT Fior Gilbert, Registered Nurse * Are you blind or do you have serious difficulty seeing, even when wearing glasses? Answer Date of Assessment Author No 01/02/2022 9:00 AM EDT Fior Gilbert, Registered Nurse * Do you have serious difficulty walking or climbing stairs? (5 years old or older) Answer Date of Assessment Author No 01/02/2022 9:00 AM EDT Fior Gilbert, Registered Nurse * Do you have difficulty dressing or bathing? (5 years old or older) Answer Date of Assessment Author No 01/02/2022 9:00 AM EDT Fior Gilbert, Registered Nurse * Because of a physical, mental, or emotional condition, do you have difficulty doing errands alone such as visiting a doctor???s office or shopping? (15 years old or older) Answer Date of Assessment Author No 01/02/2022 9:00 AM EDT Fior Gilbert, Registered Nurse documented as of this encounter Mental Status * Because of a physical, mental, or emotional condition, do you have serious difficulty concentrating, remembering, or making decisions? (5 years old or older) Answer Entry Date Author No 01/02/2022 9:00 AM EDT Fior Gilbert, Registered Nurse documented in this encounter Progress Notes * Marjan Chaudhry - 06/18/2022 11:34 AM EDT Contacted patient about below open care gaps: 2nd attempt Patient is due for diabetic eye exam ??? please have them contact their label operator to schedule. Ifpatient does not have label operator, have them contact I to schedule at [phone]. If patient has completed diabetic eye exam, please obtain provider/facility information and send telephone encounter with information to P Care Gaps [facility]. documented in this encounter Plan of Treatment [...] 1:59 PM EST) Sofia Abbott MD Note: [email or web address] Patient has no barriers to completing goals [...] PM EDT PHQ-2 Depression Total Score: 2 02/10/20 21 3:34 PM EDT documented as of this encounter Care Teams Pocket Secretary Assembler Relationship Specialty Start Date End Date Sofia Bruner MD PCP - General Family Medicine 10/24/12 Sofia Bruner MD [address] [place] [address] PCP - Madhu GORMAN Attributed Physician 02/06/21 01/06/24 Sofia Bruner MD [address] [place] [address] PCP - Krish GORMAN Attributed Physician 02/07/24 09/07/24 Nancy Garibay Access Services Librarian Complex Care Management 09/18/23 01/05/24 Dima Crenshaw, Registered Nurse Registered Nurse 07/12/24 07/13/24 documented as of this encounter
--- OUTSIDE RECORDS SUMMARY | 2025-04-09 07:38 | XMS_ITS | Encounter Summary ---
Author Organization [facility] Address [address] [place] [address] [place] [address] Phone Care Team Providers Care Cold Roll Inspector Name Role Phone Sofia Bruner MD Primary Care Provider Reason for Visit * Reason Comments Refill Request Encounter Details Date Type Department Care Team (Late st Contact Info) Description 01/05/2025 Refill [facility] [address] [place] [address] Munir Romero MD [address] [place] [address] Social History Tobacco Use Types [...] car, in a tent, in an overnight prison, or temporarily in someone else's home (i.e. [...] car, in a tent, in an overnight prison, or temporarily in someone else's home (i.e. [...] 1:59 PM EST) Sofia Abbott MD Note: [email or web address] Patient has no barriers to completing goals [...] documented as of this encounter Care Teams Cold Roll Inspector Relationship Specialty Start Date End Date Sofia Bruner MD PCP - General Family Medicine 10/24/12 documented as of this encounter
--- OUTSIDE RECORDS SUMMARY | 2025-04-09 07:38 | XMS_ITS | Encounter Summary ---
Author Organization [facility] Address [address] [place] [address] Care Team Providers Care Liquid Sugar Fortifier Name Role Phone Unavailable Primary Care Provider Unavailabl e Encounter Details Date Type Department Care Team (Late Contact Info) Description 03/09/2025 Orders Only [facility] [address] [place] [address] Lydia Rojas Microalbuminuria (Primary Dx); CKD (chronic kidney disease) stage 4, GFR 15-29 ml/min (CMS/HCC); Vitamin D insufficiency Social History Tobacco Use Types Packs/Day Years Used Date Smoking Tobacco: Never Assessed Sex and Gender Information Value Date Recorded Sex Assigned at Not on file Legal Sex Male 1:52 PM EDT Gender Identity Not on file Sexual Orientation Not on file documented as of this encounter Plan of Treatment Upcoming Encounters Date Type Department Care Team (Late Contact Info) Description 06/24/2025 12:20 PM EDT [facility] Visit [facility] [address] [address] Bar Seals MD [address] [place] [phone] Scheduled Orders Name Type Priority Associated Diagnoses Orde r Schedule Renal Function Panel, Plasma Lab Routine CKD (chronic kidney disease) stage 4, GFR 15-29 ml/min (CMS/HCC) Microalbuminuria Expected: 03/09/2025 (Approximate), Expires: 09/09/2026 CBC and Differential Lab Routine CKD (chronic kidney disease) stage 4, GFR 15-29 ml/min (CMS/HCC) Microalbuminuria Expected: 03/09/2025 (Approximate), Expires: 09/09/2026 Creatinine, Random, Urine Lab Routine CKD (chronic kidney disease) stage 4, GFR 15-29 ml/min ([facility]) Microalbuminuria Expected: 03/09/2025 (Approximate), Expires: 09/09/2026 Protein, Random, Urine with Creatinine Lab Routine CKD (chronic kidney disease) stage 4, GFR 15-29 ml/min ([facility]) Microalbuminuria Expected: 03/09/2025 (Approximate), Expires: 09/09/2026 Urinalysis with reflex microscopic (Culture NOT Included) Lab Routine CKD (chronic kidney disease) stage 4, GFR 15-29 ml/min ([facility]) Microalbuminuria Expected: 03/09/2025 (Approximate), Expires: 09/09/2026 PTH Intact Total Lab Routine CKD (chronic kidney disease) stage 4, GFR 15-29 ml/min ([facility]) Vitamin D insufficiency Microalbuminuria Expected: 03/09/2025 (Approximate), Expires: 09/09/2026 Vitamin D 25 Hydroxy Lab Routine CKD (chronic kidney disease) stage 4, GFR 15-29 ml/min ([facility]) Vitamin D insufficiency Microalbuminuria Expected: 03/09/2025 (Approximate), Expires: 09/09/2026 Albumin-creatinine ratio, urine, random Lab Routine CKD (chronic kidney disease) stage 4, GFR 15-29 ml/min ([facility]) Microalbuminuria Expected: 03/09/2025 (Approximate), Expires: 09/09/2026 documented as of this encounter Visit Diagnoses Diagnosis Microalbuminuria- Primary Proteinuria CKD (chronic kidney disease) stage 4, GFR 15-29 ml/min (CMS/HCC) Chronic kidney disease, Stage IV (severe) Vitamin D insufficiency documented in this encounter
--- OUTSIDE RECORDS SUMMARY | 2025-04-09 07:38 | XMS_ITS | Clinical Summary ---
Author Organization [facility] Address [address] [place] [address] Care Team Providers Care Master [place] Name Role Phone Unavailable Primary Care Provider Unavailabl e Encounters Date Type Department Care Team Description 03/09/2025 Orders Only [facility] [address] [place] [address] Lydia Rojas Microalbuminuria (Primary Dx); CKD (chronic kidney disease) stage 4, GFR 15-29 ml/min (CMS/HCC); Vitamin D insufficiency from Last 3 Months Social History Tobacco Use Types Packs/Day Years Used Date Smoking Tobacco: Never Assessed Sex and Gender Information Value Date Recorded Sex Assigned at Not on file Legal Sex Male 1:52 PM EDT Gender Identity Not on file Sexual Orientation Not on file Plan of Treatment Upcoming Encounters Date Type Department Care Team ([facility] st Contact Info) Description 06/24/2025 12:20 PM EDT Office Visit [facility] [address] [place] [address] Bar Seals MD [address] [place] [phone] Health Maintenance Due Date Last Done Comments [facility]-Depression Screening 1955 [facility]-Hepatitis C Screening 1956 [facility]-/Child/Adol SDOH Screenings 1956 [facility]- SDOH Screenings 1974 [facility]-Adult SDOH Screenings 1974 [facility]-DTaP,Tdap,and Td Vaccine s (1 - Tdap) 1975 CT Colonography 2001 Colonoscopy 2001 FIT-DNA 2001 FIT 2001 FOBT 2001 Sigmoidoscopy 2001 [facility]-Colorectal Cancer Screening 2001 [facility]-Pneumococcal Vaccine: 50 + Years (1 of 1 - PCV) 2006 [facility]-Zoster Vaccines (1 of 2) 2006 [id number] Vaccine (1 - 20 24-25 season) 2024 [facility]-Influenza Vaccine (#1) 2025 [facility]-RSV Vaccine: 60+ Years o r (1 - 1-dose 75+ series) 2031 HPV Vaccines Aged Out No longer eligi ble based on patient's age to complete this topic [facility]-HIB Vaccines Aged Out No longer e ligible based on patient's age to complete this topic [facility]-Hepatitis A Vaccines Aged Out No longer eligible based on patient's age to complete this topic [facility]-IPV Vaccines Aged Out No longer e ligible based on patient's age to complete this topic [facility]-Rotavirus Vaccines Aged Out No lo nger eligible based on patient's age to [place] [address]
--- OUTSIDE RECORDS SUMMARY | 2025-04-09 07:38 | XMS_ITS | Encounter Summary ---
Author Organization [facility] Address [address] [place] [address] [place] [address] Phone Care Team Providers Care Well Puller Name Role Phone Sofia Bruner MD Primary Care Provider Sofia Bruner MD Unavailable + [phone] Encounter Details Date Type Department Care Team (Late st Contact Info) Description 07/26/[address] [facility] [address] [place] [address] Munir Romero MD [address] [place] [address] Social History Tobacco Use Types [...] Assessment Author No 07/08/2024 8:46 AM EDT Tanihsa Ruiz, Registered Nurse documented as of this [...] 1:59 PM EST) Sofia Abbott MD Note: [email or web address] Patient has no barriers to completing goals [...] Time PHQ-9 Depression Total Score: 2 09/18/19 12:35 PM EST PHQ-2 Depression Total Score: 0 12/29/19 4:17 PM EDT documented as of this encounter Care Teams Well Puller Relationship Specialty Start Date End Date Sofia Bruner MD PCP - General Family Medicine 10/24/12 Sofia Bruner MD [address] [place] [address] PCP - Krish GORMAN Attributed Physician 02/07/24 09/07/24 documented as of this encounter
--- OUTSIDE RECORDS SUMMARY | 2025-04-09 07:38 | XMS_ITS | Encounter Summary ---
Author Organization [facility] Address [facility] [place] [address] Phone Care Team Providers Care Electric Welder Helper Name Role Phone Sofia Bruner MD Primary Care Provider Reason for Visit * Reason Comments Refill Request Encounter Details Date Type Department Care Team (Late st Contact Info) Description 02/23/2025 Refill [facility] - [facility] [address] [place] [address] Sofia Bruner MD [address] [place] [address] Social History Tobacco Use Types [...] car, in a tent, in an overnight correction, or temporarily in someone else's home (i.e. [...] car, in a tent, in an overnight correction, or temporarily in someone else's home (i.e. [...] encounter Miscellaneous Notes * Telephone Encounter - Sharon Acharya - 02/23/2025 3:12 PM EDT Appointment No appt Last visit 06/29/24 Last filled 06/29/24-invokana 90 day with 1 refill 06/29/24-metoprolol 90 day with 1 refill documented in this encounter Plan of Treatment [...] 1:59 PM EST) Sofia Abbott MD Note: [email or web address] Patient has no barriers to completing goals [...] documented as of this encounter Care Teams Electric Welder Helper Relationship Specialty Start Date End Date Sofia Bruner MD PCP - General Family Medicine 10/24/12 documented as of this encounter
--- OUTSIDE RECORDS SUMMARY | 2025-04-09 07:38 | XMS_ITS | Referral Summary ---
Author Organization [facility] Address [address] [place] [address] Phone Care Team Providers Care Field Assembly Supervisor Name Role Phone Sofia Bruner MD Primary Care Provider Encounters Date Type Department Care Team Description 04/06/2025 Telephone [facility] [address] [place] [address] Centralized, Prior Authorization 03/23/2025 Refill [facility] [address] [place] [address] Sofia Bruner MD 03/23/2025 Refill [facility] [address] [place] [address] Munir Romero MD 03/09/2025 Refill [facility] [address] [place] [address] Sofia Bruner MD 03/08/2025 Refill [facility] [address] [place] [address] Sofia Brnuer MD 02/24/2025 Telephone [facility] [address] [place] [address] Sofia Bruner MD 02/23/2025 Refill [facility] [address] [place] [address] Sofia Bruner MD 02/11/2025 Telephone [facility] [address] [place] [address] Carolyn Jansen Registered Nurse 01/24/2025 Refill [facility] [address] [place] [address] Munir Romero MD 01/18/2025 Refill [facility] [address] [place] [address] Sofia Bruner MD 01/17/2025 Refill [facility] Phys[facility] [address] [place] [address] Sofia Bruner MD from Last 3 Months Allergies Active Allergy Reactions Criticality Noted Date [...] skin 3 (three) times daily. 50 each 09/08/19 24 Active Insulin Pen Needle 30G X [address] [facility] Use to inject insulin per insulin order instructions. 100 each 09/08/19 24 Active Glucose Blood (BLOOD GLUCOSE TEST STRIPS) STRP Check blood sugar 4 to 5 times a day (E11.22) Uncontrolled diabetes with stage 4 CKD 150 strip 09/22/19 24 Active Continuous Blood Gluc Consulting Property Manager (FREESTYLE LEONARD 3 READER) DEVIIndications :Type 2 [...] for shortness of breath, wheezing 1 kit 10/22/20 24 Active ipratropium-alb uterol (DUONEB) 0.5-2.5 (3) MG/3ML nebulizer solution INHALE THREE MILLILITERS VIA NEBULIZATION BY MOUTH FOUR TIMES A DAY NEEDED 180 mL 1 06/30/20 Active Additional Information Patient not taking.Informant: Self, Reported on 07/26/2024 aspirin 81 mg CHEW Chew 1 tablet by mouth daily. 07/10/20 Active clopidogrel (PLAVIX) 75 mg TABS Take 1 tablet by mouth daily. 90 tablet 1 07/10/20 Active meclizine (ANTIVERT) 25 mg TABS Take 1 tablet by mouth 3 (three) times daily as needed. 90 tablet 2 08/26/20 Active LORazepam (ATIVAN) 1 mg tabletIndicatio ns:Anxiety TAKE 1 TABLET BY MOUTH TWICE A DAY NEEDED 60 tablet 08/27/20 Active torsemide (DEMADEX) 20 MG TABS TAKE 2 TABLETS BY MOUTH DAILY 180 tablet 08/30/20 Active lancets thin misc (ONETOUCH DELICA PLUS BDINPS05B) USE TO CHECK BLOOD SUGAR 4 TO [...] disease, with long-term current use of insulin ([facility]) Change sensor every 14 days. Use to monitor blood sugar continuously. 2 each 10/12/19 25 Active pramipexole (MIRAPEX) 0.25 MG TABS Take 1 Tablet by mouth 3 times daily. 180 tablet 1 03/24/20 Active pramipexole (MIRAPEX) 0.25 MG TABS Take [...] with RVR 09/23/2023 Acute hyperglycemia 09/22/19 24 Immunizations Immunization Administration Dates Next Due Pneumococcal Conjugate (PCV20) Prevnar 20 2022 Pneumococcal Polysaccharide (PPV23) Pneumovax-23 05/25/2018 Tdap (Tetanus, Diphtheria & Pertussis) 9 Social History Tobacco Use Types Packs/Day Years [...] car, in a tent, in an overnight detention, or temporarily in someone else's home (i.e. [...] car, in a tent, in an overnight detention, or temporarily in someone else's home (i.e. [...] Mass Index 35.88 07/26/2024 10:39 AM EST Functional Status * Are you deaf or [...] Author No 07/08/2024 8:46 AM EDT Tanihsa Ruiz Registered Nurse Mental Status * Because of a physical, mental, or emotional condition, do you have serious difficulty concentrating, remembering, or making decisions? (5 years old or older) Answer Entry Date Author No 07/08/2024 8:46 AM EDT Tanisha Ruiz Registered Nurse Plan of Treatment Not on file Goals Goal Patient Goal Type Associated Problems [...] 1:59 PM EST) Sofia Abbott MD Note: [email or web address] Patient has no barriers to completing goals [...] 5 [email or web address].nhlbi.nih.gov Medical Devices Implanted Type Area Fire Equipment Operator Device Identifier Shelf Expiration Date Model / Serial / Lot Device Aaa Amulet 34mm - [id number] Implanted:Qty : 1 on 07/08/2024 by Bradley Hammond MD at [facility] Miscellaneous Left: Heart Mediamorph 09/07/2027 [id number] / / [id number] Procedures Procedure Name Priority Date/Time Associated Diagnosis [...] control. Tested at: [facility], [address] [place], [place] [id number] Blood 07/09/2024 5:08 AM EDT 07/09/2024 5:48 AM EDT Tessa Ernst DO LAB BLOOD ORDERABLES Final Res ult Performing Organization Address City/[facility]/ZIP Co de Phone Number [facility] [id number] [place] [address] [facility] [address] [place] [address] * (ABNORMAL) BMP (Na,K,Cl,CO2,Glu,BUN,Creat,Ca) (07/08/2024 7:04 AM EDT) BLD UREA NITROGEN 41(H) 8 - 26 mg/dL [facility] SODIUM 135 135 - 145 mmol/L [facility] POTASSIUM 3.5(L) 3.6 - 5.1 mmol/L [facility] CHLORIDE 94(L) 98 - 111 mmol/L [facility] CO2 30 21 - 31 mmol/L [facility] GLUCOSE, RANDOM 123(H) 70 - 99 mg/dL [facility] CREATININE 2.21(H) 0.70 - 1.30 mg/dL [facility] ANION GAP 11 4 - 16 mmol/L [facility] CALCIUM 8.8 8.5 - 10.4 mg/dL [facility] ESTIMATED GFR 32(L) >59 mL/min/1.7 3 m2 [facility] Comment: Estimated GFR was calculated using the CKD-EPI cr (2020) equation refit without race. The equation is recommended by the National Kidney Foundation - [place] Society of Nephrology Task Force. Tested at [facility] [id number] [place] [address] Whole Blood 07/08/2024 7:04 AM EDT 07/08/2024 7:32 AM EDT us Bradley Hammond MD LAB BLOOD ORDERABLES Final Resu lt Performing Organization Address City/[facility]/ZIP Co de Phone Number [facility] [id number] [place] [phone] [facility] [facility] [id number] [place] [address] * CT CHEST WO CONTRAST (12/31/2023 5:50 [...] documented transmission to the ordering physician per [facility] Radiology department protocol Narrative 12/31/2023 6:03 PM [...] the content of this report, please contact [facility] radiology by calling [phone] FINDINGS: LUNGS/AIRWAYS: Upper lobe predominant centrilobular groundglass [...] about the content of this report, pleasecontact [facility] radiology by calling [phone] FINDINGS: LUNGS/AIRWAYS: Upper lobe predominant centrilobular groundglass [...] for documented transmission to the ordering physicianper [facility] Radiology department protocol Sae Arthur MD CT Final Result * Prostate Specific Antigen (11/19/2023 3:36 PM EDT) Pathologist [facility] PROSTATIC SPECIF AG 0.72 <=4.00 ng/mL [facility] Comment: (NOTE) The Estelita Elecsys total [...] inflammatory conditions of the prostate. Tested at: [facility], [employer] [place] [address] Whole Blood 11/19/2023 3:36 PM EDT 11/19/2023 3:41 PM EDT Sofia Bruner MD LAB BLOOD ORDERABLES F inal Result Performing Organization Address City/[facility]/ZIP Co de Phone Number [facility] [id number] [place] [address] [facility] [place] [address] * (ABNORMAL) Microalbumin, Urine Random (includes MALB/Creat Ratio) (11/19/2023 3:36 PM EDT) MICROALBUMIN, UR 1,800.9 mg/L [facility] CREATININE, URINE RANDOM 46.6 mg/dL [facility] MICROALB/CREAT RATIO 3,865(H) 0 - 30 mg/g [facility] Comment:Tested at: [facility], [address] [place] [address] Urine URINE SPECIMEN / Unknown 11/19/2023 3:36 PM EDT 11/19/2023 3:41 PM EDT Ida Baird PA-C URINE ORDERABLES NO PER Final Result Performing Organization Address City/[facility]/ZIP Co de Phone Number [facility] [address] [place] [address] [place] [id number] [place] [address] * (ABNORMAL) Lipid Panel (CHOL, TRIG, HDL, LDL) (11/19/2023 3:36 PM EDT) Pathologist [facility] CHOLESTEROL 187 <200 mg/dL [facility] TRIGLYCERIDE 253(H) <150 mg/dL [facility] Comment: Reference Interval: Fasting <150 mg/dL Non-Fasting <175 mg/dL HDL CHOLESTEROL 46(L) >50 mg/dL [facility] LDL CHOLESTEROL (CALCULATED) 90 <130 mg/dL [facility] Comment: Interpretive Guidelines: <100 Optimal 100-129 Near Optimal 130-159 Borderline High >159 High TOTAL NON HDL CHOL 141(H) <130 mg/dL [facility] Comment:Tested at [address] [place] [address] Whole Blood 11/19/2023 3:36 PM EDT 11/19/2023 3:41 PM EDT Sofia Bruner MD LAB BLOOD ORDERABLES F inal Result [facility] [address] [place], [place] [phone] [address] [address] * Colonoscopy Procedure (01/08/2022 9:30 AM EDT) Narrative Lacy Kwok MD - 01/08/2022 9:30 AM EDT Lacy Kwok MD 01/08/2022 9:32 AM Patient: Chinmay Ardon Date of : 1955 Age: [age] year old Sex: male Unit: [facility] ENDOSCOPY Room/Bed: BTENDO/ Location: [facility] Admitting Physician: LACY KWOK Primary Care Physician: Sofia Bruner MD HISTORY: The patient is a 66 year old male with history of Past Medical History: Diagnosis Date Anxiety state Arthropathy Chronic airway obstruction (HCC) Convulsions (HCC) Depressive disorder Diabetes mellitus (HCC) ED (erectile dysfunction) Esophageal reflux Hyperlipidemia Hypertriglyceridemia Legal blindness Obstructive chronic bronchitis with exacerbation (HCC) Seizure (HCC) Took medication until in 20' Tremor Unspecified essential hypertension Vertigo Indications: Screening [...] EDT) HEPATITIS C AB Non Reactive Non-React [facility] Comment:Tested at: [facility] [place] [address] Whole blood specimen (specimen) 06/08/2018 9:15 AM EDT 06/08/2018 9:19 AM EDT Sofia Bruner MD LAB BLOOD ORDERABLES F inal Result [facility] [address] [place] [address] [facility] [address] [place] [address] from Last 3 Months or Most Recently Relevant to Health Maintenance Insurance [facility] DUAL COMPLETE Care Teams Field Assembly Supervisor Relationship Specialty Start Date End Date Sofia Bruner MD PCP - General Family Medicine 10/24/12
--- OUTSIDE RECORDS SUMMARY | 2025-04-09 07:38 | XMS_ITS | Encounter Summary ---
Author Organization [facility] Address [address] [place] [address] [place] [address] Phone Care Team Providers Care Clinical Nursing Instructor Name Role Phone Sofia Bruner MD Primary Care Provider Sofia Bruner MD Unavailable + [phone] Dima Crenshaw Registered Nurse Unavailable U navailable Encounter Details Date Type Department Care Team (Late st Contact Info) Description 06/21/2024 Collaborative Link Encounter [facility] [address] [place] [address] Social History Tobacco Use Types Packs/Day Years [...] 1:59 PM EST) Sofia Abbott MD Note: [email or web address] Patient has no barriers to completing goals [...] documented as of this encounter Care Teams Clinical Nursing Instructor Relationship Specialty Start Date End Date Sofia Bruner MD PCP - General Family Medicine 10/24/12 Sofia Bruner MD [address] [place] [address] PCP - Krish GORMAN Attributed Physician 02/07/24 09/07/24 Dima Crenshaw, Registered Nurse Registered Nurse 07/12/24 07/13/24 documented as of this encounter
--- OUTSIDE RECORDS SUMMARY | 2025-04-09 07:38 | XMS_ITS | Encounter Summary ---
Author Organization [facility] Address [facility] [place] [address] Phone Care Team Providers Care Crop Picker Name Role Phone Sofia Bruner MD Primary Care Provider Sofia Bruner MD Unavailable [phone] Lyla Nieves Registered Nurse Unavailable U navailable Sofia Bruner MD Unavailable [phone] Nancy Garibay Unavailable Unavailable Sofia Bruner MD Unavailable [phone] Dima Crenshaw Registered Nurse Unavailable U navailable Encounter Details Date Type Department Care Team (Late st Contact Info) Description 06/26/2020 Collaborative Link Encounter [facility] [address] [place] [address] Leoncio Mckenzie LPN Social History Tobacco Use Types Packs/Day Years Used Date Smoking Tobacco: Light Smoker Cigarettes 1 22 Smokeless Tobacco: Never Alcohol Use Standard Drinks/Week Comments No 0 (1 standard drink = 0.6 oz pur e alcohol) Sex and Gender Information Value Date Recorded Sex Assigned at Not on file Legal Sex Male 11:40 AM EST Gender Identity Male 06/08/2018 9:16 AM EDT Sexual Orientation Not on file COVID-19 Exposure Response Date Recorded In the last month, have you been in contact with someone who was confirmed or suspected to have Coronavirus / COVID-19? No / Unsure 06/19/2020 11:42 AM EDT documented as of this encounter Functional Status * Are you deaf or do you have serious difficulty hearing? Answer Date of Assessment Author No 05/29/2020 12:50 PM EDT Radha Khan * Are you blind or do you have serious difficulty seeing, even when wearing glasses? Answer Date of Assessment Author No 05/29/2020 12:50 PM EDT Radha Khan * Do you have serious difficulty walking or climbing stairs? (5 years old or older) Answer Date of Assessment Author No 05/29/2020 12:50 PM EDT Radha Khan * Do you have difficulty dressing or bathing? (5 years old or older) Answer Date of Assessment Author Yes 05/29/2020 12:50 PM EDT Radha Khan * Because of a physical, mental, or emotional condition, do you have difficulty doing errands alone such as visiting a doctor???s office or shopping? (15 years old or older) Answer Date of Assessment Author No 05/29/2020 12:50 PM EDT Radha Khan documented as of this encounter Mental Status * Because of a physical, mental, or emotional condition, do you have serious difficulty concentrating, remembering, or making decisions? (5 years old or older) Answer Entry Date Author No 05/29/2020 12:50 PM EDT Radha Khan documented in this encounter Plan of Treatment [...] 1:59 PM EST) Sofia Abbott MD Note: [email or web address] Patient has no barriers to completing goals [...] Date Last Indicated Resolved Time COVID-19 Suspect 11/29/2021 11/29/2021 02/27/2022 8:08 PM EDT COVID-19 Suspect 09/06/2023 09/06/2023 09/06/2023 10:57 PM EST COVID-19 Confirmed Comment:>20D no longer infectious 09/06/2023 10/01/20232023 9:20 AM EST Influenza 10/01/2023 10/01/2023 2023 8:0 8 PM EST MRSA 10/01/2023 10/01/2023 10/31/2023 8:08 PM EST COVID-19 Suspect 11/27/2023 11/27/2023 11/27/2023 2:05 PM EDT documented as of this encounter Care Teams Crop Picker Relationship Specialty Start Date End Date Sofia Bruner MD PCP - General Family Medicine 10/24/12 Sofia Bruner MD [address] [place] [address] PCP - Krish Ferrara Physician 10/09/20 01/05/21 Sofia Bruner MD [address] [place] [address] PCP - Madhu GORMAN Attributed Physician 02/06/21 01/06/24 Sofia Bruner MD [address] [place] [address] PCP - Krish GORMAN Attributed Physician 02/07/24 09/07/24 Lyla Nieves, Registered Nurse Registered Nurse Complex Care Management 02/06/21 06/25/21 Nancy Garibay Kettle Chipper Complex Care Management 09/18/23 01/05/24 Dima Crenshaw, Registered Nurse Registered Nurse 07/12/24 07/13/24 documented as of this encounter
--- OUTSIDE RECORDS SUMMARY | 2025-04-09 07:38 | XMS_ITS | Encounter Summary ---
Author Organization [facility] Address [facility] [address] Phone Care Team Providers Care Senior Software Engineering Manager Name Role Phone Sofia Bruner MD Primary Care Provider Sofia Bruner MD Unavailable + [phone] Nancy Garibay Unavailable Unavailable Sofia Bruner MD Unavailable + [phone] Dima Crenshaw Registered Nurse Unavailable U navailable Encounter Details Date Type Department Care Team ([facility] st Contact Info) Description 06/27/2022 Collaborative Link Encounter [facility] [address] [place] [phone] Social History Tobacco Use Types Packs/Day Years [...] was confirmed or suspected to have Coronavirus/COVID-19? No / Unsure 06/25/2022 10:08 AM EDT documented as of this encounter [...] encounter Progress Notes * Marjan Chaudhry - 06/27/2022 11:05 AM EDT Contacted patient about below open care gaps: 3rd attempt Patient is due for diabetic eye exam ??? please have them contact their place change roof bolter to schedule. Ifpatient does not have place change roof bolter, have them contact I to schedule at [phone]. If patient has completed diabetic eye exam, please obtain provider/facility information and send telephone encounter with information to P Care Gaps [facility]. documented in this encounter Plan of Treatment [...] 1:59 PM EST) Sofia Abbott MD Note: [email or web address] Patient has no barriers to completing goals [...] as of this encounter Care Teams Senior Software Engineering Manager Relationship Specialty Start Date End Date Sofia Bruner MD PCP - General Family Medicine 10/24/12 Sofia Bruner MD [address] [place] [address] PCP - Madhu GORMAN Attributed Physician 02/06/21 01/06/24 Sofia Brnuer MD [address] [place] [address] PCP - Krish GORMAN Attributed Physician 02/07/24 09/07/24 Nancy Garibay Manager Card Complex Care Management 09/18/23 01/05/24 Dima Crenshaw, Registered Nurse Registered Nurse 07/12/24 07/13/24 documented as of this encounter
--- OUTSIDE RECORDS SUMMARY | 2025-04-09 07:38 | XMS_ITS | Encounter Summary ---
Author Organization [facility] Address [facility] [address] [place] [address] Phone Care Team Providers Care Fitting Room Associate Name Role Phone Sofia Bruner MD Primary Care Provider Reason for Visit * Reason Comments Refill Request Encounter Details Date Type Department Care Team (Late st Contact Info) Description 12/23/2024 Refill [facility] - [facility] [address] [place] [address] Faisal Olvera MD [address] [place] [address] Social History Tobacco Use Types [...] car, in a tent, in an overnight snf, or temporarily in someone else's home (i.e. [...] car, in a tent, in an overnight snf, or temporarily in someone else's home (i.e. [...] * Telephone Encounter - Lydia Galdamez - 12/23/2024 1:16 PM EDT Meclizine LF-08/26/24 Q-90 R-2 LV-06/29/2024 APPT-NONE documented in this encounter Plan of Treatment [...] 1:59 PM EST) Sofia Abbott MD Note: [email or web address] Patient has no barriers to completing goals [...] documented as of this encounter Care Teams Fitting Room Associate Relationship Specialty Start Date End Date Sofia Bruner MD PCP - General Family Medicine 10/24/12 documented as of this encounter
--- OUTSIDE RECORDS SUMMARY | 2025-04-09 07:38 | XMS_ITS | Encounter Summary ---
Author Organization [facility] Address [facility] [place] [address] Phone Care Team Providers Care Solid State Tester Name Role Phone Sofia Bruner MD Primary Care Provider Reason for Visit * Reason Onset Date Comments Follow-up 02/11/2025 Encounter Details Date Type Department Care Team (Late st Contact Info) Description 02/11/2025 Telephone [facility] [place] [address] [place] [address] Carolyn Jansen Registered Nurse Social History Tobacco Use Types Packs/Day Years [...] car, in a tent, in an overnight chcf, or temporarily in someone else's home (i.e. [...] car, in a tent, in an overnight chcf, or temporarily in someone else's home (i.e. [...] AM EDT Tanisha Ruiz Registered Nurse * Are you blind or [...] encounter Miscellaneous Notes * Telephone Encounter - Carolyn Jansen, Registered Nurse - 02/11/2025 10:44 AM EDT Spoke to Chinmay briefly. Tried to find out why he had not done his CT scan post Amulet, and he stated that he has now moved to [place], and no longer lives in [place]. I told him we will need for him to have a CT scan done, so we can take him off his Plavix. He asked for me to call his nephew Rodrick to explain it more to him. documented in this encounter Plan of Treatment [...] 1:59 PM EST) Sofia Abbott MD Note: [email or web address] Patient has no barriers to completing goals [...] documented as of this encounter Care Teams Solid State Tester Relationship Specialty Start Date End Date Sofia Bruner MD PCP - General Family Medicine 10/24/12 documented as of this encounter
--- OUTSIDE RECORDS SUMMARY | 2025-04-09 07:38 | XMS_ITS | Encounter Summary ---
Author Organization [facility] Address [facility] [place] [address] Phone Care Team Providers Care Gas Station Service Attendant Name Role Phone Sofia Bruner MD Primary Care Provider Sofia Bruner MD Unavailable [phone] Lyla Nieves Registered Nurse Unavailable U navailable Sofia Bruner MD Unavailable Nancy Garibay Unavailable Unavailable Sofia Bruner MD Unavailable [phone] Dima Crenshaw Registered Nurse Unavailable U navailable Encounter Details Date Type Department Care Team (Late st Contact Info) Description 06/23/2020 Collaborative Link Encounter [facility] [address] [place] [address] Leoncio Mckenzie LPN Social History [...] 1:59 PM EST) Sofia Abbott MD Note: [email or web address] Patient has no barriers to completing goals [...] documented as of this encounter Care Teams Gas Station Service Attendant Relationship Specialty Start Date End Date Sofia Bruner MD PCP - General Family Medicine 10/24/12 Sofia Bruner MD [address] [place] [address] PCP - Krish Ferrara Physician 10/09/20 01/05/21 Sofia Bruner MD [address] [place] [address] PCP - Madhu GORMAN Attributed Physician 02/06/21 01/06/24 Sofia Bruner MD [address] [place] [address] PCP - Krish GORMAN Attributed Physician 02/07/24 09/07/24 Lyla Nieves, Registered Nurse Registered Nurse Complex Care Management 02/06/21 06/25/21 Nancy Garibay Environmental Field Professional Complex Care Management 09/18/23 01/05/24 Dima Crenshaw, Registered Nurse Registered Nurse 07/12/24 07/13/24 documented as of this encounter
--- OUTSIDE RECORDS SUMMARY | 2025-04-09 07:38 | XMS_ITS | Encounter Summary ---
Author Organization [facility] Address [address] [place] [address] [place] [address] Phone Care Team Providers Care Breast Surgeon Name Role Phone Sofia Bruner MD Primary Care Provider Reason for Visit * Reason Comments Refill Request Encounter Details Date Type Department Care Team (Late st Contact Info) Description 01/24/2025 Refill [facility] [address] [place] [address] Munir Romero MD [address] [place] [address] Social History Tobacco Use Types [...] Author No 07/08/2024 8:46 AM EDT Tanisha Ruzi, Registered Nurse documented as of this encounter [...] 1:59 PM EST) Sofia Abbott MD Note: [email or web address] Patient has no barriers to completing goals [...] documented as of this encounter Care Teams Breast Surgeon Relationship Specialty Start Date End Date Sofia Bruner MD PCP - General Family Medicine 10/24/12 documented as of this encounter
--- OUTSIDE RECORDS SUMMARY | 2025-04-09 07:38 | XMS_ITS | Encounter Summary ---
Author Organization [facility] Address [facility] [place] [address] Phone Care Team Providers Care Gi Technician Name Role Phone Sofia Bruner MD Primary Care Provider Sofia Bruner MD Unavailable + [phone] Nancy Garibay Unavailable Unavailable Sofia Bruner MD Unavailable + [phone] Dima Crenshaw Registered Nurse Unavailable U navailable Encounter Details Date Type Department Care Team ([facility] st Contact Info) Description 08/08/2023 Collaborative Link Encounter [facility] [address] [place], [place] [id number] Social History Tobacco Use Types Packs/Day Years [...] Author No 01/02/2022 9:00 AM KAROLINAT Fior Gilbert, Registered Nurse * Are you blind or do you have serious difficulty seeing, even when wearing glasses? Answer Date of Assessment Author No 01/02/2022 9:00 AM KAROLINAT Fior Gilbert Registered Nurse * Do you have serious [...] documented in this encounter Progress Notes * Snow Townsend - 08/08/2023 11:36 AM EST Contacted patient about below open care gaps: Diabetic Eye Exam Left voicemail advising patient to return call. Swapsee message sent to patient. Patient is due for diabetic eye exam ??? please have them contact their match up person to schedule. Ifpatient does not have match up person, have them contact [facility] to schedule at [phone]. If patient has completed diabetic eye exam, please obtain provider/facility information and send telephone encounter with information to P Care Gaps [facility]. documented in this encounter Plan of [...] 1.3 Result Component 2.21(07/08/20 7:04 AM EDT) No Sofia Bruner MD Exercising Regularly Self-Managemen t Not on track( 1:59 PM EST) Sofia Abbott MD Note: [email or web address] Patient has no barriers to completing goals [...] documented as of this encounter Care Teams Gi Technician Relationship Specialty Start Date End Date Sofia Bruner MD PCP - General Family Medicine 10/24/12 Sofia Bruner MD [address] [place] [address] PCP - Madhu GORMAN Attributed Physician 02/06/21 01/06/24 Sofia Bruner MD [address] [place] [address] PCP - Krish GORMAN Attributed Physician 02/07/24 09/07/24 Nancy Garibay Leaf Stamper Complex Care Management 09/18/23 01/05/24 Dima Crenshaw, Registered Nurse Registered Nurse 07/12/24 07/13/24 documented as of this encounter
--- OUTSIDE RECORDS SUMMARY | 2025-04-09 07:39 | XMS_ITS | Encounter Summary ---
Author Organization [facility] Address [facility] [place] [address] Phone Care Team Providers Care Gun Stocker Name Role Phone Sofia Bruner MD Primary Care Provider Sofia Bruner MD Unavailable [phone] Nancy Garibay Unavailable Unavailable Sofia Bruner MD Unavailable + [phone] Dima Crenshaw Registered Nurse Unavailable U navailable Reason for Referral * MRI/CAT Scan (Routine) - Closed Specialty Diagnoses / Procedures Referred By Mague shahid Referred To Contact Radiology Diagnoses Urge incontinence Hypertension, essential History of malignant neoplasm of kidney excluding renal pelvis Diabetes mellitus without complication Stress incontinence, male Other specified disorders of kidney and ureter Asymptomatic microscopic hematuria Malignant neoplasm of right kidney, except renal pelvis Procedures CT ABDOMEN WO CONTRAST Sae Arthur MD Phone: tel: fax: Referral ID Status Reason Start Date Expiration Date V isits Requested Visits Authorized [id number] Closed Specialty Services Required 12/15/2023 03/13/2024 1 1 * MRI/CAT Scan (Routine) - Closed Specialty Diagnoses / Procedures Referred By Contac t Referred To Contact Radiology Diagnoses Urge incontinence Hypertension, essential History of malignant neoplasm of kidney excluding renal pelvis Diabetes mellitus without complication Stress incontinence, male Other specified disorders of kidney and ureter Asymptomatic microscopic hematuria Malignant neoplasm of right kidney, except renal pelvis Procedures CT CHEST WO CONTRAST Sae Arthur MD Phone: tel: fax: Referral ID Status Reason Start Date Expiration Date V isits Requested Visits Authorized [id number] Closed Specialty Services Required 12/15/2023 03/13/2024 0 0 Encounter Details Date Type Department Care Team (Late st Contact Info) Description 12/12/2023 Orders Only [facility] Scheduling [address] [place] [address] [place] [address] [place] [address] Urge incontinence (Primary Dx); Hypertension, essential; History of malignant neoplasm of kidney excluding renal pelvis; Diabetes mellitus without complication (HCC); Female stress incontinence; Stress incontinence, male; Other specified disorders of kidney and ureter; Asymptomatic microscopic hematuria; Malignant neoplasm of right kidney, except renal pelvis (HCC) Social History Tobacco Use Types Packs/Day Years Used Date Smoking Tobacco: Every Day Cigarettes 0.5 22 Smokeless Tobacco: Never Alcohol Use Standard Drinks/Week Comments No 0 (1 standard drink = 0.6 oz pur e alcohol) PHQ-2 Answer Date Recorded PHQ-2 Total Score 2 09/18/2023 [employer] Insecurities Answer Date Recorded Within the [...] of Assessment Author No 10/19/2023 11:00 AM EST Mirian, Georgie, Registered Nurse documented as of this encounter Mental Status * Because of a physical, mental, or emotional condition, do you have serious difficulty concentrating, remembering, or making decisions? (5 years old or older) Answer Entry Date Author No 10/19/2023 11:00 AM EST Georgie Vela Registered Nurse documented in this encounter Plan [...] 1:59 PM EST) Sofia Abbott MD Note: [email or web address] Patient has no barriers to completing goals [...] 5 [email or web address].nhlbi.nih.gov documented as of this encounter Results * CT ABDOMEN WO CONTRAST (12/31/2023 5:50 PM EDT) Anatomical Region Laterality Modality Abdomen Computed Tomogra phy 12/31/2023 5:55 PM EDT Impressions 12/31/2023 5:59 PM EDT No acute process on noncontrast exam. Indeterminate left renal lesions. MRI abdomen may be helpful for further characterization. Postsurgical changes right nephrectomy. Narrative 12/31/2023 5:59 PM EDT HISTORY: Urge incontinence;Essential (primary) hypertension;Personal history of other malignant neoplasm of kidney;Type 2 diabetes mellitus without complications;Stress incontinence (female) (male);Other specified disorders of kidney and ureter;Asymptomatic microscopic hematuria;Malignant neoplasm of right kidney, except renal pelvis COMPARISON: CT chest same date, CT abdomen and pelvis November 24, 2023 and prior's TECHNIQUE: Noncontrast multiplanar CT images of the abdomen NOTE: If there are questions about the content of this report, [facility] by calling [phone] FINDINGS: LOWER CHEST: Described on concurrent chest CT LIVER: Unremarkable GALLBLADDER/BILE DUCTS: Collapsed, limiting evaluation. No obvious acute process. PANCREAS: Unremarkable. No mass or duct dilation SPLEEN: Unremarkable ADRENALS: Unremarkable KIDNEYS/URETERS: Postsurgical changes right nephrectomy. Surgical bed is unremarkable. 2 hyperdense left renal lesions and additional isodense lesion projecting off the posterior left kidney. No substantial change compared to prior. No stone, hydronephrosis, or hydroureter. GI TRACT: Stomach is unremarkable. The visualized small and large bowel loops are normal in caliber and without acute process. VESSELS: Vascular calcifications. No aneurysm LYMPH NODES: Unremarkable. No enlarged lymph nodes ABD WALL: Unremarkable BONES: Degenerative changes. No acute process. OTHER: None Procedure Note Veronica Wilson MD - 12/31/2023 HISTORY: Urge incontinence;Essential (primary) hypertension;Personalhistory of other malignant neoplasm of kidney;Type 2 diabetes mellituswithout complications;Stress incontinence (female) (male);Other specifieddisorders of kidney and ureter;Asymptomatic microscopic hematuria;Malignant neoplasm of rightkidney, except renal pelvis COMPARISON: CT chest same date, CT abdomen and pelvis November 24, 2023 andprior's TECHNIQUE: Noncontrast multiplanar CT images of the abdomen NOTE: If there are questions about the content of this report, pleasecontact [facility] radiology by calling [phone] FINDINGS: LOWER CHEST: Described on concurrent chest CT LIVER: Unremarkable GALLBLADDER/BILE DUCTS: Collapsed, limiting evaluation. No obvious acuteprocess. PANCREAS: Unremarkable. No mass or duct dilation SPLEEN: Unremarkable ADRENALS: Unremarkable KIDNEYS/URETERS: Postsurgical changes right nephrectomy. Surgical bed isunremarkable. 2 hyperdense left renal lesions and additional isodenselesion projecting off the posterior left kidney. No substantial changecompared to prior. No stone, hydronephrosis, or hydroureter. GI TRACT: Stomach is unremarkable. The visualized small and large bowelloops are normal in caliber and without acute process. VESSELS: Vascular calcifications. No aneurysm LYMPH NODES: Unremarkable. No enlarged lymph nodes ABD WALL: Unremarkable BONES: Degenerative changes. No acute process. OTHER: None IMPRESSION No acute process on noncontrast exam. Indeterminate left renal lesions. MRI abdomen may be helpful for furthercharacterization. Postsurgical changes right nephrectomy. Sae Arthur MD CT Final Result * CT CHEST WO CONTRAST (12/31/2023 5:50 [...] documented transmission to the ordering physician per [facility] Radiology department protocol Narrative 12/31/2023 6:03 [...] the content of this report, please contact [facility] radiology by calling [phone] FINDINGS: LUNGS/AIRWAYS: Upper lobe predominant centrilobular groundglass [...] about the content of this report, pleasecontact [facility] radiology by calling [phone] FINDINGS: LUNGS/AIRWAYS: Upper lobe predominant centrilobular groundglass [...] for documented transmission to the ordering physicianper [facility] Rad[facility] protocol Sae Arthur MD CT Final Result documented in this encounter Visit Diagnoses Diagnosis Urge incontinence- Primary Hypertension, essential Unspecified essential hypertension History of malignant neoplasm of kidney excluding renal pelvis Personal history of malignant neoplasm of kidney Diabetes mellitus without complication Type II or unspecified type diabetes mellitus without mention of complication, not stated as uncontrolled Female stress incontinence Stress incontinence, male Other specified disorders of kidney and ureter Asymptomatic microscopic hematuria Malignant neoplasm of right kidney, except renal pelvis Malignant neoplasm of kidney, except pelvis Urge incontinence Hypertension, essential Unspecified essential hypertension History of malignant neoplasm of kidney excluding renal pelvis Personal history of malignant neoplasm of kidney Diabetes mellitus without complication Type II or unspecified type diabetes mellitus without mention of complication, not stated as uncontrolled Stress incontinence, male Other specified disorders of kidney and ureter Asymptomatic microscopic hematuria Malignant neoplasm of right kidney, except renal pelvis Malignant neoplasm of kidney, except pelvis documented in this encounter Additional Health Concerns Assessment Noted Time PHQ-9 Depression Total Score: 2 09/18/19 12:35 PM EST PHQ-2 Depression Total Score: 2 09/18/19 12:35 PM EST documented as of this encounter Care Teams Gun Stocker Relationship Specialty Start Date End Date Sofia Bruner MD PCP - General Family Medicine 10/24/12 Sofia Bruner MD [address] [place] [address] PCP - Madhu GORMAN Attributed Physician 02/06/21 01/06/24 Sofia Bruner MD [address] [place] [address] PCP - Krish GORMAN Attributed Physician 02/07/24 09/07/24 Nancy Garibay Geothermal Operations Manager Complex Care Management 09/18/23 01/05/24 Dima Crenshaw, Registered Nurse Registered Nurse 07/12/24 07/13/24 documented as of this encounter
--- OUTSIDE RECORDS SUMMARY | 2025-04-09 07:39 | XMS_ITS | Encounter Summary ---
Author Organization [facility] Address [facility] [address] [place] [address] Phone Care Team Providers Care Developer Evangelist Name Role Phone Sofia Bruner MD Primary Care Provider Sofia Bruner MD Unavailable + [phone] Dima Crenshaw Registered Nurse Unavailable U navailable Encounter Details Date Type Department Care Team (Late st Contact Info) Description 01/22/2024 Orders Only [facility] Central Scheduling [address] [place], [place] [address] [place] [address] [place], [place] [id number] Malignant neoplasm of right kidney, except renal pelvis (HCC) (Primary Dx); Urge incontinence; Asymptomatic microscopic hematuria; Stress incontinence, male; Personal history of malignant neoplasm of kidney; Other specified disorders of kidney and ureter; Diabetes mellitus without complication (HCC); Primary hypertension Social History Tobacco Use Types [...] Assessment Author No 10/19/2023 11:00 AM Georgie Paige, Registered Nurse * Are you blind or do you have serious difficulty seeing, even when wearing glasses? Answer Date of Assessment Author Yes 10/19/2023 11:00 AM Georgie Paige, Francesco Nurse * Do you have serious difficulty walking or climbing stairs? (5 years old or older) Answer Date of Assessment Author No 10/19/2023 11:00 AM Georgie Paige, Registered Nurse * Do you have difficulty dressing or bathing? (5 years old or older) Answer Date of Assessment Author No 10/19/2023 11:00 AM Georgie Paige, Registered Nurse * Because of a physical, [...] 1:59 PM EST) Sofia Abbott MD Note: [email or web address] Patient has no barriers to completing goals [...] Primary Malignant neoplasm of kidney, except pelvis Urge incontinence Asymptomatic microscopic hematuria Stress incontinence, male Personal history of malignant neoplasm of kidney Other specified disorders of kidney and ureter Diabetes mellitus without complication Type II or unspecified type diabetes mellitus without mention of complication, not stated as uncontrolled Primary hypertension Unspecified essential hypertension documented in this encounter Additional Health Concerns Assessment Noted Time PHQ-9 Depression Total Score: 2 09/18/19 12:35 PM EST PHQ-2 Depression Total Score: 0 12/29/19 4:17 PM EDT documented as of this encounter Care Teams Developer Evangelist Relationship Specialty Start Date End Date Sofia Bruner MD PCP - General Family Medicine 10/24/12 Sofia Bruner MD [address] [place] [address] PCP - Krish GORMAN Attributed Physician 02/07/24 09/07/24 Dima Crenshaw, Registered Nurse Registered Nurse 07/12/24 07/13/24 documented as of this encounter
--- NOTE | 2025-04-09 07:47 | XR_ITS ---
PROCEDURE INFORMATION: Exam: XR Chest Exam date and time: 04/09/2025 8:05 AM Age: 69 years old Clinical indication: Cough; Additional info: Flu like symptoms x 2-3 days, smoker for 20 yrs, copd TECHNIQUE: Imaging protocol: Radiologic exam of the chest. Views: 2 views. COMPARISON: No relevant prior studies available. FINDINGS: Surgical device overlies the left hemithorax Lungs: Unremarkable. No consolidation. Pleural spaces: Unremarkable. No pleural effusion. No pneumothorax. Heart/Mediastinum: Unremarkable. No cardiomegaly. Bones/joints: Unremarkable. IMPRESSION: No acute findings.
--- NOTE | 2025-04-09 07:49 | ED_ITS ---
Discharge Plan Disposition Patient Disposition: Home, Self-Care Prescriptions Prescriptions: New ondansetron 4 mg tablet,disintegrating 4 mg PO Q6H PRN (Reason: nausea and vomiting) Qty: 12 0RF No Action insulin glargine [Lantus Solostar U-100 Insulin] 100 unit/mL (3 mL) insulin pen 20 unit SQ DAILY Patient Comments: INJECT 30 UNITS UNDER THE SKIN NIGHTLY AT BEDTIME. DISCARD OPEN PEN AFTER 28 DAYS albuterol sulfate 90 mcg/actuation HFA aerosol inhaler 90 mcg inhalation NEEDED PRN (Reason: sob) Patient Comments: INHALE 2 PUFFS INTO THE LUNGS EVERY 6 HOURS NEEDED. pramipexole 0.25 mg tablet 0.25 mg PO BID Patient Comments: TAKE 1 TABLET BY MOUTH 3 TIMES DAILY. torsemide 20 mg tablet 20 mg PO DAILY Patient Comments: TAKE 2 TABLETS BY MOUTH ONCE DAILY. ipratropium-albuterol 0.5 mg-3 mg(2.5 mg base)/3 mL solution for nebulization 3 ml inhalation BID Patient Comments: INHALE THE CONTENTS OF 1 VIAL VIA NEBULIZER 4 TIMES DAILY NEEDED. rosuvastatin 5 mg tablet 5 mg PO DAILY pantoprazole 20 mg tablet,delayed release (DR/EC) 20 mg PO DAILY (DME) lancets [OneTouch Delica Plus Lancet] 33 gauge misc See Rx Instructions .ROUTE .MEDSUPPLY Qty: 100 Rx Instructions: As directed aspirin 81 mg tablet,chewable 81 mg PO DAILY Invokana 100 mg tablet 100 mg PO DAILY Patient Comments: TAKE 1 TABLET BY MOUTH ONCE DAILY. dapagliflozin propanediol [Farxiga] 10 mg tablet 10 mg PO DAILY Qty: 90 3RF clotrimazole-betamethasone 1-0.05 % cream 1 applic topical BID Qty: 45 3RF Kerendia 20 mg tablet 20 mg PO DAILY Qty: 90 3RF alcohol swabs [BD Alcohol Swabs] Pads, Medicated 200 pad topical QID PRN (Reason: diabetes) Qty: 200 4RF Patient Comments: FOR TOPICAL USE WITH INSULIN INJECTION UP TO FOUR TIMES A DAY. Rx Instructions: Use with insulin injections four times daily as needed lisinopril 40 mg tablet 40 mg PO ONCE Qty: 90 3RF metoprolol tartrate 25 mg tablet 25 mg PO BID Qty: 180 3RF carbidopa-levodopa 25-100 mg tablet 2 tab PO QID Qty: 90 10RF meclizine 25 mg tablet 25 mg PO TID PRN (Reason: dizziness) Qty: 60 1RF Patient Comments: TAKE 1 TABLET BY MOUTH 3 TIMES DAILY NEEDED. lorazepam 1 mg tablet 1 mg PO BID PRN (Reason: anxiety) Qty: 60 3RF (DME) FreeStyle Leonard 3 Plus Sensor Device See Rx Instructions .ROUTE .MEDSUPPLY Qty: 1 0RF Patient Comments: USE TO MONITOR BLOOD SUGAR CONTINUOUSLY. CHANGE EVERY 15 DAYS. Rx Instructions: As directed Referrals Follow up/Referrals: Devante Foster MD [Primary Care Provider, [facility]] - See instructions Activity Restrictions/Add. Instructions Additional Instructions/Restrictions: Your workup today showed an elevation in your white blood cell count, which could be from the infection, although there is no clear source of infection on today's workup. I want you to follow-up closely with your primary care physician on Friday for recheck of your lab work and to ensure that your symptoms are improving. If you develop any new or worsening symptoms over the next 1 to 2 days, such as fever, shortness of breath, chest pain, abdominal pain, cough, or if you become concerned for your health for any reason, return to the emergency department for evaluation. Clinical Impressions Clinical Impression: Nausea, Leukocytosis, Flu-like symptoms Print Language Print Language: Australian Discharge ED Provider: Stalin Bal Adult HPI General Chief complaint: Extremity Problem,Nontraumatic Stated complaint: leg pain vertigo Time Seen by Provider: 04/09/25 07:37 Mode of Arrival: Wheelchair Source of Information: Patient Description of Symptoms (Recalled from ER Triage Doc. by RN): pt reports feeling like he has excess fluid on his legs. pain in both legs. x1 week has history of kidney cancer. states he felt like he might have had a fever in the middle of the night so he came in to be evaulated. feels like his legs might cramp but havent History of Present Illness HPI narrative: Chinmay Ardon is a 69-year-old male with a history of Parkinson's disease, blindness, diabetes mellitus, A-fib status post Watchman device on aspirin, renal cancer status post nephrectomy, hypertension, vertigo who presents to the emergency department with his nephew for complaints of being chilled, nausea and feeling like his legs are going to cramp. Patient states that early this morning at around 2 AM, he felt cold and was shivering and was unable to get warm. He states that he felt like both of his legs were going to cramp. He also reports some nausea but denies any vomiting, abdominal pain, chest pain, shortness of breath, cough, dysuria, hematuria. He reports chronic back pain that he used to take medical marijuana for prior to moving here 2 months ago. He states that he feels like he might have the flu. No known sick contacts. Patient reports good bowel movements has not had any urinary issues. He does report intermittent swelling to the distal bilateral lower extremities but states that it seems improved at this time. He denies any history of heart failure or heart attacks. Related Data Home Medications ?Medication ?Instructions ?Recorded ?Confirmed albuterol sulfate 90 mcg/actuation 90 mcg inhalation A S NEEDED PRN sob 11/19/24 03/16/25 aerosol inhaler aspirin 81 mg chewable tablet 81 mg PO DAILY 11/19/24 03/16/25 insulin glargine 100 unit/mL (3 20 unit SQ DAILY 11/1903/16/25 mL) subcutaneous pen (Lantus Solostar U-100 Insulin) ipratropium 0.5 mg-albuterol 3 mg 3 ml inhalation BID 11/19/24 03/16/25 (2.5 mg base)/3 mL nebulization soln lancets 33 gauge (OneTouch Delica #100 ea 11/19/2406/02 Plus Lancet) pantoprazole 20 mg tablet,delayed 20 mg PO DAILY 11/1903/16/25 release pramipexole 0.25 mg tablet 0.25 mg PO BID 11/19/2406/02 rosuvastatin 5 mg tablet 5 mg PO DAILY 11/19/2403/16 torsemide 20 mg tablet 20 mg PO DAILY 11/19/2406/02 canagliflozin 100 mg tablet 100 mg PO DAILY 02/08/25 0 03/16/25 (Invokana) Previous Rx's ?Medication ?Instructions ?Recorded finerenone 20 mg tablet (Kerendia) 20 mg PO DAILY #90 tabs 11/22/24 alcohol swabs (BD Alcohol Swabs) 200 pad topical QID P oracle database developer 04/30/25 #200 ea clotrimazole-betamethasone 1 1 applic topical BID #45 grams 01/19/25 %-0.05 % topical cream dapagliflozin propanediol 10 mg 10 mg PO DAILY #90 tab s 01/19/25 tablet (Farxiga) lisinopril 40 mg tablet 40 mg PO ONCE #90 tabs 01/25 metoprolol tartrate 25 mg tablet 25 mg PO BID #180 tab s 01/25/25 carbidopa 25 mg-levodopa 100 mg 2 tab PO QID #90 tabs 01/27/25 tablet meclizine 25 mg tablet 25 mg PO TID PRN dizziness # 60 tabs 03/09/25 lorazepam 1 mg tablet 1 mg PO BID PRN anxiety #60 tabs 03/23/25 blood-glucose sensor (FreeStyle #1 ea 04/05/25 Leonard 3 Plus Sensor device) ondansetron 4 mg disintegrating 4 mg PO Q6H PRN nausea and 04/09/25 tablet vomiting #12 tabs Allergies Allergy/AdvReac Type Severity Reaction Status Date / Time peanut AdvReac Mild Unknown Verified 03/16/25 09:04 allergy reaction atorvastatin (From Lipitor) AdvReac Unknown Verified 03/16/25 09:04 allergy reaction PFSH PFSH Disclaimer: The information contained in this section may have been updated after the patient was seen, as this information can be updated by other users. Medical History Retinitis pigmentosa History of kidney cancer Vertigo Blindness of both eyes History of COPD Back pain Afib Intertrigo Blindness of right eye Parkinson disease Hypertension Diabetes Surgical History History of kidney removal Social History Smoking Status: Former smoker alcohol intake: never substance use type: denies use current occupational status: disabled Travel in the last 8 weeks?: None Have you lived/traveled outside US in past 30 days?: No Contact w/someone who lives/traveled outside US past 30 days?: No Exposure to someone with infectious disease in past 14 days?: No Do you have a fever (greater than 100.4 F or 38 C)?: No Have you tested positive for COVID-19?: No Exposed to someone with COVID-19 in past 14 days?: No Do you have a sore throat?: No Do you have a cough?: No Do you have any weakness?: Yes Do you have any diarrhea?: No Are you experiencing any unusual bleeding?: No Do you have any muscle aches/pain?: No Do you have any abdominal pain?: No Are you experiencing loss of taste or smell?: No Other Medical History Have you received the Pneumonia Vaccine: Yes ROS Obtained: Yes Systems reviewed as appropriate & no additional complaints except as documented Physical Exam General General appearance: alert and in no apparent distress Head Head exam: atraumatic Eye Eye exam: Present normal appearance ENT ENT exam: Present normal external ear exam Neck Neck exam: Present full ROM Chest Chest inspection: Present symmetric chest wall rise Respiratory Respiratory exam: Present normal lung sounds bilaterally; Absent respiratory distress, wheezes or stridor Cardiovascular Cardiovascular exam: Present regular rate and normal rhythm Abdominal Exam Abdominal exam: Present soft; Absent distention, tenderness or guarding exam: Present deferred Extremities Exam Extremities exam: Present normal inspection and edema (Mild edema to the distal bilateral lower extremities. Some darkening of the skin and mild ulceration along the distal lateral shins) Back Exam Back exam: Present normal inspection Neurological Exam Neurological exam: Present alert and oriented X3 Psychiatric Psychiatric exam: Present normal affect Skin Skin exam: Present warm and dry Medical Decision Making Medical Records Screening: Per USPSTF and CDC recommendations, given the prevalence of disease in our region, it is our hospital?s policy to screen for HIV and viral Hepatitis for all patients aged 18 and over and those with ongoing risk factors. Wes Inquiry Pt receiving controlled substance: No Vital Signs: 04/09/25 07:42 04/09/25 07:45 04/09/25 08:00 Temperature 97.8 F Temperature Source Oral Pulse Rate 107 H 85 Pulse Rate [Right] 70 Respiratory Rate 18 Blood Pressure 127/82 119/58 L Blood Pressure [Right Arm] 115/71 Blood Pressure Mean Blood Pressure Mean [Right Arm] 85 02 Sat by Pulse Oximetry 96 95 98 Oxygen Delivery Method Room Air 04/09/25 08:30 04/09/25 09:01 04/09/25 09:30 Temperature Temperature Source Pulse Rate 80 71 75 Pulse Rate [Right] Respiratory Rate Blood Pressure 113/65 101/61 L 99/67 L Blood Pressure [Right Arm] Blood Pressure Mean Blood Pressure Mean [Right Arm] 02 Sat by Pulse Oximetry 97 94 L 96 Oxygen Delivery Method 04/09/25 10:01 04/09/25 10:15 04/09/25 11:12 Temperature Temperature Source Pulse Rate 80 82 73 Pulse Rate [Right] Respiratory Rate 18 16 Blood Pressure 82/63 L 104/65 L 95/58 L Blood Pressure [Right Arm] Blood Pressure Mean 67 73 Blood Pressure Mean [Right Arm] 02 Sat by Pulse Oximetry 98 96 100 Oxygen Delivery Method Room Air 04/09/25 11:16 04/09/25 11:30 04/09/25 11:45 Temperature Temperature Source Pulse Rate 74 66 70 Pulse Rate [Right] Respiratory Rate 16 18 Blood Pressure 107/64 L 106/67 L 109/63 L Blood Pressure [Right Arm] Blood Pressure Mean 74 84 Blood Pressure Mean [Right Arm] 02 Sat by Pulse Oximetry 96 96 95 Oxygen Delivery Method Room Air 04/09/25 11:50 Temperature 97.8 F Temperature Source Pulse Rate 66 Pulse Rate [Right] Respiratory Rate 16 Blood Pressure 109/63 L Blood Pressure [Right Arm] Blood Pressure Mean Blood Pressure Mean [Right Arm] 02 Sat by Pulse Oximetry Oxygen Delivery Method Lab Data Lab Results 04/09/25 07:43: WBC 20.1 H*, RBC 5.39, Hgb 15.2, Hct 46.3, MCV 85.9, MCH 28.2, MCHC 32.8, RDW 14.6, Plt Count 162, MPV 9.7, Neut % (Auto) 84.7 H, Lymph % (Auto) 8.6 L, Dauphin % (Auto) 4.4, Eos % (Auto) 1.5, Baso % (Auto) 0.3, Neut # (Auto) 17.0 H, Lymph # (Auto) 1.7, Dauphin # (Auto) 0.9, Eos # (Auto) 0.3, Baso # (Auto) 0.1, Sodium 132 L, Potassium 3.6, Chloride 100, Carbon Dioxide 23, Anion Gap 12.6, BUN 44 H, Creatinine 2.30 H, Estimated Creat Clear 44, Estimated GFR 28 L, Est GFR ( Amer) 34 L, Glucose 128 H, Calcium 9.1, Magnesium 2.0, Total Bilirubin 0.7, AST 29, ALT 11 L, Alkaline Phosphatase 95, Total Creatine Kinase 81, C-Reactive Protein 20.5 H, Total Protein 8.0, Albumin 3.8, Globulin 4.2 H, Albumin/Globulin Ratio 0.9 L, Procalcitonin 0.073, HCV Ab JOSÉ w/Rflx PCR Qn Negative, HIV Ag/Ab Combo Qual Negative 04/09/25 07:56: Urine Color Yellow, Urine Appearance Clear, Urine pH 5.5, Ur Specific Tryon 1.025, Urine Protein 3+ A, Urine Glucose (UA) 1+, Urine Ketones Negative, Urine Blood 1+ A, Urine Nitrate Negative, Urine Bilirubin Negative, Urine Urobilinogen 0.2, Ur Leukocyte Esterase Negative, Urine RBC Occasional, Urine WBC Occasional, Ur Squamous Epith Cells Occasional, Amorphous Sediment Trace, Urine Bacteria 1+, Hyaline Casts Occ, SARS-CoV-2 (PCR) Not detected, Influenza A Untype (PCR) Not detected, Influenza Type B (PCR) Not detected 04/09/25 07:58: Chlamy pneumoniae PCR Not detected, Adenovirus (PCR) Not detected, B. pertussis DNA (PCR) Not detected, Coronavirus OC43 (PCR) Not detected, Coronavirus HKU1 (PCR) Not detected, Coronavirus 229E (PCR) Not detected, SARS-CoV-2 (PCR) Not detected, Coronavirus NL63 (PCR) Not detected, Human Metapneumovir PCR Not detected, Influenza A (H1) PCR Not detected, Influ A (H1N1/09) PCR Not detected, Influenza A (H3) PCR Not detected, Influenza Type A (PCR) Not detected, Influenza Type B (PCR) Not detected, M. pneumoniae (PCR) Not detected, Parainfluenza 1 (PCR) Not detected, Parainfluenza 2 (PCR) Not detected, Parainfluenza 3 (PCR) Not detected, Parainfluenza 4 (PCR) Not detected, RSV (PCR) Not detected, Entero/Rhino (PCR) Not detected 04/09/25 07:43 04/09/25 07:43 Orders (Tests/Meds): ED MEDICATIONS Discontinued Medications Generic Name Dose Route Start Last Admin Trade Name Freq PRN Reason Stop Dose Admin Ondansetron HCl 4 mg 04/09/25 07:49 04/09/25 07:58 Ondansetron 4mg/2ml Vial IV 04/09/25 07:50 4 mg ONCE ONE Administration Oxycodone HCl 5 mg 04/09/25 08:39 04/09/25 08:40 Oxycodone 5mg Immediate Release Tablet PO 04/09/25 08:40 5 mg ONCE ONE Administration ORDERS Category Date Time Status CXR 2 view (NOT portable) [XR chest 2V] Stat Exams 04/09/25 07:47 Completed CBC w/Auto Diff [Complete Blood Count Auto Diff] Stat Lab 04/09/25 07:43 Completed CK [Creatine Kinase] Stat Lab 04/09/25 07:43 Completed CMP [Comprehensive Metabolic Panel] Stat Lab 04/09/25 07:43 Completed CRP [C-Reactive Protein] Stat Lab 04/09/25 07:43 Completed Full Resp Panel w/COVID ([facility]) Routine Lab 04/09/25 07:58 Completed HIV Combo Stat Lab 04/09/25 07:43 Completed Hepatitis C Ab Qual. W/ RFX Stat Lab 04/09/25 07:43 Completed Magnesium Stat Lab 04/09/25 07:43 Completed Procalcitonin Stat Lab 04/09/25 07:43 Completed Rapid PCR Covid and Flu A/B Stat Lab 04/09/25 07:56 Completed UA [Urinalysis and Microscopic] Stat Lab 04/09/25 07:56 Completed Blood Culture Stat Micro 04/09/25 09:32 Received EKG Request [ECG Request] Stat Y 04/09/25 07:50 Ordered ECG Data Tracing #1: I reviewed this ECG and interpreted as documented below: Atrial fibrillation with ventricular rate of [address] elevation or depression. QTc normal at 402 Medical Decision Narrative: Chinmay Ardon is a 69-year-old male with a history of Parkinson's disease, blindness, diabetes mellitus, A-fib status post Watchman device on aspirin, renal cancer status post nephrectomy, hypertension, vertigo who presents to the emergency department with his nephew for complaints of being chilled, nausea and feeling like his legs are going to cramp. Patient states that early this morning at around 2 AM, he felt cold and was shivering and was unable to get warm. He states that he felt like both of his legs were going to cramp. He also reports some nausea but denies any vomiting, abdominal pain, chest pain, shortness of breath, cough, dysuria, hematuria. He reports chronic back pain for degenerative process from too much protein buildup that he used to take medical marijuana for prior to moving here 2 months ago. He states that he feels like he might have the flu. No known sick contacts. Patient reports good bowel movements has not had any urinary issues. He does report intermittent swelling to the distal bilateral lower extremities but states that it seems improved at this time. He denies any history of heart failure or heart attacks. On arrival, patient is normotensive, heart rate within normal limits, afebrile, breathing comfortably on room air with oxygen saturation 96% SpO2. Physical exam, stated above, revealed an overall well-appearing male in no distress. He is sitting upright in stretcher. Cardiopulmonary exam reveals no murmurs or rubs. No wheezing, rales or rhonchi. Abdomen soft, nontender nondistended. He appears well-hydrated. Bilateral lower extremities have some mild pitting edema to the distal aspects of the lower extremities and he has some darkening of the skin along the lateral aspect of the shins with some mild ulceration in this area consistent with likely venous insufficiency or microvascular disease secondary to his diabetes. Differential diagnosis includes, but is not limited to: Viral illness, electrolyte derangement such as hypokalemia, hyponatremia, hypomagnesemia, hypocalcemia, rhabdomyolysis, viral myositis, UTI, pneumonia, among others. The most morbid conditions were considered and workup was based on these. Workup in the Emergency Department included: Two-view chest x-ray, CBC, CMP, CK, magnesium level, rapid flu/COVID test, urinalysis, EKG. Due to patient's mild nausea, will give him 4 mg IV Zofran. Chest x-ray interpreted by me personally. No focal consolidation, no pneumothorax, no widening of the mediastinum. No enlargement the cardiac silhouette. Gross unremarkable chest x-ray. See radiology for final details. Patient's laboratory studies do show elevated white blood cell count to 20.1 with neutrophilia, mild hyponatremia at 132 but electrolytes otherwise within normal limits. No elevated anion gap. Creatinine is elevated at 2.3 and BUN is 44, however this is his baseline. Liver enzymes within normal limits. Magnesium normal at 2.0. Urinalysis with 3+ protein and 1+ blood but no evidence of infection. Negative COVID and flu swab. I discussed further with the patient about his isolated leukocytosis. He ensures me that he is not taking steroids currently. He describes his symptoms as flulike . Will broaden patient's workup at this time to include full viral respiratory panel, CRP, procalcitonin as well as blood cultures. Patient's CRP is somewhat elevated at 20.5, however this is nonspecific. Procalcitonin is normal at 0.073. Blood cultures are pending at this time. Full respiratory panel is negative. Patient's workup today reveals no apparent source of infection. He does have an isolated leukocytosis and elevated CRP, however these are nonspecific and he does not meet SIRS or sepsis criteria. I discussed these results with the patient and advised him that he is to follow-up with his primary care physician first thing on Friday morning for reevaluation, however I did give him strict return precautions that if he developed any new or worsening symptoms, such as shortness of breath cough fever, abdominal pain, vomiting, diarrhea and he is to return to the emergency department for evaluation. Patient's nephew at the bedside was present for this conversation as well. Both demonstrated understanding and were in agreement with this plan. For patient's mild nausea, will send home with prescription for Zofran. He was then discharged from the emergency department in stable condition. Critical Care Critical Care Time Critical Care Time: No
[2025-04-09 07:55] LABS: Hematocrit 46.3 % (42.0-52.0); Hemoglobin 15.2 g/dL (14.1-18.0); Immature Granulocytes % 0.5 %; Mean Corpuscular HGB Conc 32.8 g/dL (31.8-35.4); Mean Corpuscular Hemoglobin 28.2 pg (27.0-31.2); Mean Corpuscular Volume 85.9 fl (80-94); Nucleated Red Blood Cells % 0 %; Platelet Count 162 K/mm3 (142-424); Red Blood Count 5.39 M/mm3 (4.60-6.20); Red Cell Distribution Width-SD 45.0 fL; White Blood Count 20.1 K/mm3 (4.8-10.8)
[2025-04-09] MEDS: ONDANSETRON 4MG/2ML VIAL 4 MG IV (07:58)
[2025-04-09 08:00] LABS: Albumin Level 3.8 g/dl (3.5-5.0); Chloride 100 mmol/L (98-107)
--- NOTE | 2025-04-09 08:00 | PC.NURSE ---
resp panel and urine sent to lab
[2025-04-09 08:01] LABS: Potassium 3.6 mmoL/L (3.5-5.1); Sodium 132 mmol/L (136-145)
[2025-04-09 08:03] LABS: Alanine Aminotransferase 11 U/L (12-78); Anion Gap 12.6 mEq/L (5-15); Aspartate Amino Transferase 29 U/L (17-59); Blood Urea Nitrogen 44 mg/dl (9-20); Carbon Dioxide 23 mmol/L (22.0-30.0); Creatinine Clearance Estimated 44 mL/min (50-200); Creatinine,Serum 2.30 mg/dl (0.66-1.25); Estimated Glomerular Filt Rate 28 ml/min (>60); GFR (African American) 34 ML/MIN (>60)
[2025-04-09 08:04] LABS: Albumin/Globulin Ratio 0.9 (1.1-1.8); Alkaline Phosphatase 95 U/L (38-126); Bilirubin,Total 0.7 mg/dl (0.2-1.3); Calcium 9.1 mg/dl (8.4-10.2); Creatine Kinase 81 U/L (55-170); Globulin 4.2 g/dL (1.3-3.2); Glucose 128 mg/dl (74-100); Magnesium 2.0 mg/dl (1.6-2.3); Total Protein,Serum 8.0 g/dl (6.3-8.2)
--- NOTE | 2025-04-09 08:04 | ECG_ITS ---
APPROVED REPORT Exam: Resting ECG HR:97 bpm ECG Measurements Heart Rate 97 AXES QRSd 110 QRS 105 QT 348 T 70 QTc 402 Conclusion ATRIAL FIBRILLATION WITH ABERRANT CONDUCTION OR VENTRICULAR PREMATURE COMPLEXES RIGHT AXIS DEVIATION [QRS AXIS > 100] LOW QRS VOLTAGE IN EXTREMITY LEADS [QRS DEFLECTION < 0.5 mV IN LIMB LEADS] PATTERN CONSISTENT WITH PULMONARY DISEASE ABNORMAL ECG UNCONFIRMED REPORT A-fib with PVCs. No ST elevations or depressions. Electronically signed by : ZAHIRA BROWN, 04/12/2025 13:01:09
[2025-04-09 08:11] LABS: Coronavirus 19, PCR Not Detected (NotDetected); Influenza A, PCR Not Detected (NotDetected); Influenza B, PCR Not Detected (NotDetected); Microscopic, Urine URINE MICROSCOPIC (MICROSCOPIC)
[2025-04-09 08:17] LABS: Bilirubin,Urine Negative (Negative); Color,Urine YELLOW (Yellow); Glucose,Urine (UA) 1+ (Negative); Ketones,Urine Negative (Negative); Leukocyte Esterase,Urine Negative (Negative); PH,Urine 5.5 (5.0-8.5); Protein,Urine 3+ (Negative); Specific Gravity, Urine 1.025 (1.005-1.030); Urobilinogen,Urine 0.2 EU/dl (0.2)
[2025-04-09] MEDS: OXYCODONE 5MG IMMEDIATE RELEASE TABLET 5 MG PO (08:40)
[2025-04-09 09:06] LABS: Amorphous Sediment,Urine Trace /lpf; Bacteria,Urine 1+ /lpf; RBC,Urine Occasional #/hpf (0-3); Squamous Epithelial Cell,Urine Occasional #/hpf (0-5); WBC,Urine Occasional #/hpf (0-3)
[2025-04-09 09:07] LABS: Hyaline Casts,Urine OCC #/lpf (0)
[2025-04-09 09:19] LABS: Adenovirus,PCR Not Detected (NotDetected); Chlamydophila Pneumoniae, PCR Not Detected (NotDetected); Coronavirus 19, PCR Not Detected (NotDetected); Coronovirus HKU1,PCR Not Detected (NotDetected); Influenza A, PCR Not Detected (NotDetected); Influenza AH1, 2009 Not Detected (NotDetected); Influenza AH1, PCR Not Detected (NotDetected); Influenza AH3,PCR Not Detected (NotDetected); Influenza B, PCR Not Detected (NotDetected); Mycoplasma Pneumoniae, PCR Not Detected (NotDetected); Parainfluenza 1, PCR Not Detected (NotDetected); Parainfluenza 2, PCR Not Detected (NotDetected); Parainfluenza 3, PCR Not Detected (NotDetected); Parainfluenza 4, PCR Not Detected (NotDetected)
[2025-04-09 09:35] LABS: C-Reactive Protein 20.5 mg/L (0-4)
[2025-04-09 09:49] LABS: Procalcitonin 0.073 ng/mL (0.0-2.0)
[2025-04-09 10:07] LABS: Hepatitis C Ab Qual. W/ RFX NEGATIVE (Negative)
== END 2025-04-09 11:56 | disposition home or self-care (01) ==
PROVIDERS: Emergency Provider Student in an Organized Health Care Education/Training Program; PCP Family Medicine
DX: R68.89 Other general symptoms and signs (principal); D72.829 Elevated white blood cell count, unspecified; R11.0 Nausea; I10 Essential (primary) hypertension; E11.9 Type 2 diabetes mellitus without complications; G20.C Parkinsonism, unspecified
CPT/HCPCS: 0223U; 71046; 80053; 81001; 82550; 83735; 84145; 85025; 86140; 86803; 87040; 87389; 87633; 87636; 93005; 96374; 99284; J2405

== ENCOUNTER 2025-04-15 12:18 | Outpatient (CLI) | payer MEDICARE, SELFPAY ==
[2025-04-15 15:18] LABS: Hematocrit 42.0 % (42.0-52.0); Hemoglobin 13.8 g/dL (14.1-18.0); Immature Granulocytes % 0.5 %; Mean Corpuscular HGB Conc 32.9 g/dL (31.8-35.4); Mean Corpuscular Hemoglobin 28.8 pg (27.0-31.2); Mean Corpuscular Volume 87.5 fl (80-94); Nucleated Red Blood Cells % 0 %; Platelet Count 201 K/mm3 (142-424); Red Blood Count 4.80 M/mm3 (4.60-6.20); Red Cell Distribution Width-SD 46.5 fL; White Blood Count 9.2 K/mm3 (4.8-10.8)
[2025-04-15 23:52] LABS: Hemoglobin A1C 6.6 % (4.0-6.0)
--- OUTSIDE RECORDS SUMMARY | 2025-04-18 12:21 | XMS_ITS | Encounter Summary ---
Author Organization [facility] [address] [place] [address] Phone Care Team Providers Care Experimental Psychologist Name Role Phone Sofia Bruner MD Primary Care Provider Reason for Visit * Reason Comments Refill Request Encounter Details Date Type Department Care Team (Late st Contact Info) Description 01/17/2025 Refill [facility] [address] [place] [address] Sofia Bruner MD [address] [place] [address] Social History Tobacco Use Types [...] car, in a tent, in an overnight usp, or temporarily in someone else's home (i.e. [...] car, in a tent, in an overnight usp, or temporarily in someone else's home (i.e. [...] Author No 07/08/2024 8:46 AM EDT Tanisha Riuz Registered Nurse documented as of this encounter [...] PM EST) No Sofia Bruner MD Note: [email or web address] Patient has no barriers to completing goals [...] documented as of this encounter Care Teams Experimental Psychologist Relationship Specialty Start Date End Date Sofia Bruner MD PCP - General Family Medicine 10/24/12 documented as of this encounter
--- OUTSIDE RECORDS SUMMARY | 2025-04-18 12:21 | XMS_ITS | Encounter Summary ---
Author Organization [facility] [address] [place] [address] Phone Care Team Providers Care Electronic Calibration Technician Name Role Phone Sofia Bruner MD Primary Care Provider Reason for Visit * Reason Comments Refill Request Encounter Details Date Type Department Care Team (Late st Contact Info) Description 03/09/2025 Refill [facility] [address] [place] [address] Sofia Bruner MD [address] [place] [address] Social History Tobacco Use Types [...] 1:59 PM EST) Sofia Abbott MD Note: [email or web address] Patient has no barriers to completing [...] documented as of this encounter Care Teams Electronic Calibration Technician Relationship Specialty Start Date End Date Sofia Bruner MD PCP - General Family Medicine 10/24/12 documented as of this encounter
--- OUTSIDE RECORDS SUMMARY | 2025-04-18 12:21 | XMS_ITS | Encounter Summary ---
Author Organization [facility] Address [address] [place] [address] [place] [address] Phone Care Team Providers Care Biztalk Administrator Name Role Phone Sofia Bruner MD Primary Care Provider Sofia Bruner MD Unavailable + [phone] Dima Crenshaw Registered Nurse Unavailable U navailable Encounter Details Date Type Department Care Team (Late st Contact Info) Description 06/21/2024 Collaborative Link Encounter [facility] [address] [place] [id number] Social History Tobacco Use Types Packs/Day Years [...] 1:59 PM EST) Sofia Abbott MD Note: [email or web address] Patient has no barriers to completing goals [...] documented as of this encounter Care Teams Biztalk Administrator Relationship Specialty Start Date End Date Sofia Bruner MD PCP - General Family Medicine 10/24/12 Sofia Bruner MD [address] [place] [address] PCP - Krish GORMAN Attributed Physician 02/07/24 09/07/24 Dima Crenshaw, Registered Nurse Registered Nurse 07/12/24 07/13/24 documented as of this encounter
--- OUTSIDE RECORDS SUMMARY | 2025-04-18 12:21 | XMS_ITS | Encounter Summary ---
Author Organization [facility] Address [address] [place] [address] [place] [address] Phone Care Team Providers Care Fashion Illustrator Name Role Phone Sofia Bruner MD Primary Care Provider Reason for Visit * Reason Comments Refill Request Encounter Details Date Type Department Care Team (Late st Contact Info) Description 01/05/2025 Refill [facility] [address] [place] [address] Munir Romero MD [address] [place] [address] Social History Tobacco Use Types [...] car, in a tent, in an overnight [place], or temporarily in someone else's home (i.e. [...] car, in a tent, in an overnight [place], or temporarily in someone else's home (i.e. [...] 1:59 PM EST) Sofia Abbott MD Note: [email or web address] Patient has no barriers to completing goals [...] documented as of this encounter Care Teams Fashion Illustrator Relationship Specialty Start Date End Date Sofia Bruner MD PCP - General Family Medicine 10/24/12 documented as of this encounter
--- OUTSIDE RECORDS SUMMARY | 2025-04-18 12:21 | XMS_ITS | Encounter Summary ---
Author Organization [facility] Address [address] [place] [address] [place] [address] Phone Care Team Providers Care Microbiological Lab Technician Name Role Phone Sofia Bruner MD Primary Care Provider Sofia Bruner MD Unavailable + [phone] Dima Crenshaw Registered Nurse Unavailable U navailable Reason for Referral * Cardiology Services (Routine) - [place] No Prior Auth Required Specialty Diagnoses / Procedures Referred By Contac t Referred To Contact Cardiology Diagnoses Paroxysmal atrial fibrillation (HCC) Procedures CD TRANSESOPHAGEAL ECHO Bradley Hammond MD Phone: tel: fax: Referral ID Status Reason Start Date Expiration Date Visits Requested Visits Authorized [id number] [place] No Prior Auth Required Specialty Services Required 05/25/2024 05/25/2025 1 1 Encounter Details Date Type Department Care Team (Late st Contact Info) Description 05/25/2024 Orders Only [facility] Central Scheduling [address] [place], [place] [address] [place] [address] [place], [place] [phone] Paroxysmal atrial fibrillation (HCC) (Primary Dx) Social [...] PM EST) No Sofia Bruner MD Note: [email or web address] Patient has no barriers to completing goals [...] documented as of this encounter Care Teams Microbiological Lab Technician Relationship Specialty Start Date End Date Sofia Bruner MD PCP - General Family Medicine 10/24/12 Sofia Bruner MD [address] [place] [address] PCP - Krish GORMAN Attributed Physician 02/07/24 09/07/24 Dima Crenshaw, Registered Nurse Registered Nurse 07/12/24 07/13/24 documented as of this encounter
--- OUTSIDE RECORDS SUMMARY | 2025-04-18 12:21 | XMS_ITS | Clinical Summary ---
Author Organization Healthcare Address [address] [place] [address] Care Team Providers Care Gill Tender Name Role Phone Unavailable Primary Care Provider Unavailabl e Encounters Date Type Department Care Team Description 03/09/2025 Orders Only [facility] [address] [place] [address] Lydia Rojas Microalbuminuria (Primary Dx); CKD [...] Upcoming Encounters Date Type Department Care Team ([facility] st Contact Info) Description 06/24/2025 12:20 PM EDT Office Visit [facility] [address] [place] [address] Bra Seals MD [address] [place] [address] Health Maintenance Due Date Last Done Comments [facility]-Depression Screening 1955 [facility]-Hepatitis C Screening 1955 [facility]-Infant/Child/Adol SDOH Screenings 1955 [facility]- SDOH Screenings 1974 [facility]-Adult SDOH Screenings 1974 [facility]-DTaP,Tdap,and Td Vaccine s (1 - Tdap) 1975 CT Colonography 2001 Colonoscopy 2001 FIT-DNA 2001 FIT 2001 FOBT 2001 Sigmoidoscopy 2001 [facility]-Colorectal Cancer Screening 2001 [facility]-Pneumococcal Vaccine: 50 + Years (1 of 1 - PCV) 2006 [facility]-Zoster Vaccines (1 of 2) 2006 ONQ-DXAMH-70 Vaccine (1 - 20 24-25 season) 2024 [...]
--- OUTSIDE RECORDS SUMMARY | 2025-04-18 12:21 | XMS_ITS | Encounter Summary ---
Author Organization [facility] Address [address] [place] [address] Phone Care Team Providers Care Airline Customer Service Agent Name Role Phone Sofia Bruner MD Primary Care Provider Encounter Details Date Type Department Care Team (Late st Contact Info) Description 02/24/2025 Telephone [facility] [address] [place] [address] Sofia Bruner MD [address] [place] [address] Social History Tobacco Use Types [...] 1:59 PM EST) Sofia Abbott MD Note: [email or web address] Patient has no barriers to completing goals [...] documented as of this encounter Care Teams Airline Customer Service Agent Relationship Specialty Start Date End Date Sofia Bruner MD PCP - General Family Medicine 10/24/12 documented as of this encounter
--- OUTSIDE RECORDS SUMMARY | 2025-04-18 12:21 | XMS_ITS | Encounter Summary ---
Author Organization [facility] [address] [place] [address] Phone Care Team Providers Care Gauge And Weigh Machine Operator Name Role Phone Sofia Bruner MD Primary Care Provider Reason for Visit * Reason Comments Refill Request Encounter Details Date Type Department Care Team (Late st Contact Info) Description 12/23/2024 Refill [facility] [address] [place] [address] Faisal Olvera MD [address] [place] [address] Social History Tobacco Use Types [...] car, in a tent, in an overnight long-term, or temporarily in someone else's home (i.e. [...] car, in a tent, in an overnight long-term, or temporarily in someone else's home (i.e. [...] Author No 07/08/2024 8:46 AM EDT Tanisha uRiz, Registered Nurse * Do you have difficulty [...] 1:59 PM EST) Sofia Abbott MD Note: [email or web address] Patient has no barriers to completing goals [...] documented as of this encounter Care Teams Gauge And Weigh Machine Operator Relationship Specialty Start Date End Date Sofia Bruner MD PCP - General Family Medicine 10/24/12 documented as of this encounter
--- OUTSIDE RECORDS SUMMARY | 2025-04-18 12:21 | XMS_ITS | Referral Summary ---
Author Organization [facility] Address [address] [place] [address] Phone Care Team Providers Care Bottle Gauger Name Role Phone Sofia Bruner MD Primary Care Provider Encounters Date Type Department Care Team Description 04/06/2025 Telephone [facility] [address] [place] [address] Centralized, Prior Authorization Type 2 diabetes mellitus with stage 3b chronic kidney disease, with long-term current use of insulin (HCC) (Primary Dx) 03/23/2025 Refill [facility] [address] [place] [address] Sofia Bruner MD 03/23/2025 Refill [facility] [address] [place] [address] Munir Romero MD 03/09/2025 Refill [facility] [address] [place] [address] Sofia Bruner MD 03/08/2025 Refill [facility] [address] [place] [address] Sofia Bruner MD 02/24/2025 Telephone [facility] [address] [place] [address] Sofia Bruner MD 02/23/2025 Refill [facility] [address] [place] [address] Sofia Bruner MD 02/11/2025 Telephone [facility] [place] [facility] [address] [place] [address] Carolyn Jansen Registered Nurse 01/24/2025 Refill [facility] [address] [place] [address] Munir Romero MD 01/18/2025 Refill [facility] [address] [place] [address] Sofia Bruner MD 01/17/2025 Refill [facility] [address] [place] [address] Sofia Bruner MD from Last 3 Months [...] Insulin Pen Needle 30G X 5 MM MISC Use to inject insulin per insulin order instructions. 100 each 09/08/19 24 Active Glucose Blood (BLOOD GLUCOSE TEST STRIPS) STRP Check blood sugar 4 to 5 times a day (E11.22) Uncontrolled diabetes with stage 4 CKD 150 strip 11 09/22/19 24 Active Continuous Blood Gluc Body Service Team Member (FREESTYLE LEONARD 3 READER) DEVIIndications :Type 2 [...] Active lancets thin misc (ONETOUCH DELICA PLUS [id number]) USE TO CHECK BLOOD SUGAR 4 TO [...] disease, with long-term current use of insulin ([facility]) Change sensor every 14 days. Use to [...] electricity) when it was really needed? No Sex and Gender Information Value Date Recorded [...] 8:46 AM EDT Tanisha Ruiz Registered Nurse Mental Status * Because [...] 1:59 PM EST) Sofia Abbott MD Note: [email or web address] Patient has no barriers to completing goals [...] 5 [email or web address] Medical Devices Implanted Type Area Supervisor Electronics Assembly Device Identifier Shelf Expiration Date Model / Serial / Lot Device Aaa Amulet 34mm - [id number] Implanted:Qty : 1 on 07/08/2024 by Bradley Hammond MD at [facility] Miscellaneous Left: [employer] 09/07/2027 [id number] / / [id number] Procedures Procedure Name Priority Date/Time Associated Diagnosis [...] given level of glycemic control. Tested at: [facility], [address] [place] [address] Blood 07/09/2024 5:08 AM EDT 07/09/2024 5:48 AM EDT Tessa Ernst DO LAB BLOOD ORDERABLES Final Res ult Performing Organization Address [facility] [address]/ZIP Co de Phone Number [facility] [address] [place], [place] [id number] [facility] [id number] [place], [place] [id number] * (ABNORMAL) BMP (Na,K,Cl,CO2,Glu,BUN,Creat,Ca) (07/08/2024 7:04 AM EDT) BLD UREA NITROGEN 41(H) 8 - 26 mg/dL CHEMISTRY LEONARD SODIUM 135 135 - 145 mmol/L CHEMISTRY LEONARD POTASSIUM 3.5(L) 3.6 - 5.1 mmol/L CHEMISTRY LEONARD CHLORIDE 94(L) 98 - 111 mmol/L CHEMISTRY LEONARD CO2 30 21 - 31 mmol/L CHEMISTRY LEONARD GLUCOSE, RANDOM 123(H) 70 - 99 mg/dL CHEMISTRY LEONARD CREATININE 2.21(H) 0.70 - 1.30 mg/dL [facility] ANION GAP 11 4 - 16 mmol/L CHEMISTRY LEONARD CALCIUM 8.8 8.5 - 10.4 mg/dL CHEMISTRY LEONARD ESTIMATED GFR 32(L) >59 mL/min/1.7 3 m2 CHEMISTRY LEONARD Comment: Estimated GFR was calculated using the CKD-EPI cr (2020) equation refit without race. The equation is recommended by the National Kidney Foundation - [place] [employer] of Nephrology Task Force. Tested at [facility] [id number] [place] [address] Whole Blood 07/08/2024 7:04 AM EDT 07/08/2024 7:32 AM EDT Bradley Hammond MD LAB BLOOD ORDERABLES Final Resu lt Performing Organization Address [facility] [address]/ZIP Co de Phone Number [facility] [id number] [place] [address] [address] * CT CHEST WO CONTRAST (12/31/2023 5:50 [...] documented transmission to the ordering physician per [facility] Radiology department protocol Narrative 12/31/2023 6:03 [...] the content of this report, please contact [facility] radiology by calling [phone] FINDINGS: LUNGS/AIRWAYS: Upper lobe predominant centrilobular groundglass [...] about the content of this report, pleasecontact [facility] radiology by calling [phone] FINDINGS: LUNGS/AIRWAYS: Upper lobe predominant centrilobular groundglass [...] for documented transmission to the ordering physicianper [facility] Radiology department protocol Sae Arthur MD CT Final Result * Prostate Specific Antigen (11/19/2023 3:36 PM EDT) Pathologist [facility] PROSTATIC SPECIF AG 0.72 <=4.00 ng/mL [facility] Comment: (NOTE) The Estelita Elecsys total [...] inflammatory conditions of the prostate. Tested at: [facility], [address] [address] Whole Blood 11/19/2023 3:36 PM EDT 11/19/2023 3:41 PM EDT Sofia Bruner MD LAB BLOOD ORDERABLES F inal Result Performing Organization Address City/[facility] [address]/ZIP Co de Phone Number [facility] [address] [place] [address] [facility] [address] [place] [address] * (ABNORMAL) Microalbumin, Urine Random (includes MALB/Creat Ratio) (11/19/2023 3:36 PM EDT) MICROALBUMIN, UR 1,800.9 mg/L [facility] CREATININE, URINE RANDOM 46.6 mg/dL [facility] MICROALB/CREAT RATIO 3,865(H) 0 - 30 mg/g [facility] Comment:Tested at: [facility], [address] [place] [address] Urine URINE SPECIMEN / Unknown 11/19/2023 3:36 PM EDT 11/19/2023 3:41 PM EDT Ida Baird PA-C URINE ORDERABLES NO PER Final Result Performing Organization Address [facility] [address]/[facility] Co de Phone Number [facility] [address] [place] [address] [facility] [address] [place] [address] * (ABNORMAL) Lipid Panel (CHOL, TRIG, HDL, LDL) (11/19/2023 3:36 PM EDT) CHOLESTEROL 187 <200 mg/dL [facility] TRIGLYCERIDE 253(H) <150 mg/dL [facility] Comment: Reference Interval: Fasting <150 mg/dL Non-Fasting <175 mg/dL HDL CHOLESTEROL 46(L) >50 mg/dL [facility] LDL CHOLESTEROL (CALCULATED) 90 <130 mg/dL [facility] Comment: Interpretive Guidelines: <100 Optimal 100-129 Near Optimal 130-159 Borderline High >159 High TOTAL NON HDL CHOL 141(H) <130 mg/dL [facility] Comment:Tested at [address] [place] [address] Whole Blood 11/19/2023 3:36 PM EDT 11/19/2023 3:41 PM EDT Sofia Bruner MD LAB BLOOD ORDERABLES F inal Result [facility] [address] [place] [address] [place] [address] * Colonoscopy Procedure (01/08/2022 9:30 AM EDT) Narrative Lacy Kwok MD - 01/08/2022 9:30 AM EDT Lacy Kwok MD 01/08/2022 9:32 AM Patient: Chinmay Ardon Date of : 1955 Age: [age] year old Sex: male Unit: [facility] Room/Bed: BTENDO/ Location: [facility] Admitting Physician: LACY KWOK Primary Care Physician: Sofia Bruner MD HISTORY: The patient is a 66 year old male with history of Past Medical History: Diagnosis Date Anxiety state Arthropathy Chronic airway obstruction (HCC) Convulsions (HCC) Depressive disorder Diabetes mellitus (HCC) ED (erectile dysfunction) Esophageal reflux Hyperlipidemia Hypertriglyceridemia Legal blindness Obstructive chronic bronchitis with exacerbation (HCC) Seizure (HCC) Took medication until in 20 Tremor Unspecified essential hypertension Vertigo Indications: Screening [...] EDT) HEPATITIS C AB Non Reactive Non-React [facility] Comment:[facility] [place] [address] Whole blood specimen (specimen) 06/08/2018 9:15 AM EDT 06/08/2018 9:19 AM EDT Sofia Bruner MD LAB BLOOD ORDERABLES F inal Result [facility] [address] [place] [address] [address] from Last 3 Months or Most Recently Relevant to Health Maintenance Insurance [facility] DUAL COMPLETE Care Teams Bottle Gauger Relationship Specialty Start Date End Date Sofia Bruner MD PCP - General Family Medicine 10/24/12
--- OUTSIDE RECORDS SUMMARY | 2025-04-18 12:21 | XMS_ITS | Clinical Summary ---
Author Organization [facility] Address [address] [place] [address] Phone Care Team Providers Care Home Health Clinical Supervisor Name Role Phone Moises KEYS, Joann Trevino Conditions or Problems Problem Name Problem Code Onset Date Status Entry Date Provider Comment Standard Description Annotate BACK PAIN, LOW 583973927 (SNOMED CT) 03/29 Active 03/29 Joann De Leon NP Low back pain OVERWEIGHT 781518180 (SNOMED CT) 03/29 Active 03/29 Miguelina Shelley MA Overweight Thrombocytope lissy, unspecified D69.6 (ICD-10-CM ) 09/11 Active 03/26 Miguelina Shelley MA Thrombocytopeni a, unspecified Imported from [facility]: [facility] (26-Mar-20 at 08:40:32 AM) Paroxysmal atrial fibrillation 400435982 (SNOMED CT) 10/18 Active 03/26 Miguelina Shelley MA Paroxysmal atrial fibrillation Imported from [facility]: [facility] (26-Mar-20 at 08:40:32 AM) Parkinson's disease, unspecified whether dyskinesia present, unspecified whether manifestation s fluctuate G20.A1 (ICD-10-CM ) 10/18 Active 03/26 Miguelina Shelley MA Parkinson's disease without dyskinesia, without mention of fluctuations Imported from [facility]: [facility] (26-Mar-20 at 08:40:32 AM) OAB (overactive bladder) N32.81 (ICD-10-CM ) 10/23 Active 03/26 Miguelina Shelley MA Overactive bladder Imported from [facility]: [facility] (26-Mar-20 at 08:40:32 AM) Malignant neoplasm of right kidney, except renal pelvis C64.1 (ICD-10-CM ) 10/01 Active 03/26 Miguelina Shelley MA Malignant neoplasm of right kidney, except renal pelvis Imported from [employer] (26-Mar-20 at 08:40:32 AM) Lumbosacral radiculopathy 9539458 (SNOMED CT) 02/19 Active 03/26 Miguelina Shelley MA Lumbosacral radiculopathy Imported from [employer] (26-Mar-20 at 08:40:32 AM) Legal blindness, as defined in [place] H54.8 (ICD-10-CM ) 10/20 Active 03/26 Miguelina Shelley MA Legal blindness, as defined in [place] Imported from [employer] (26-Mar-20 at 08:40:32 AM) Inadequately controlled diabetes mellitus E11.65 (ICD-10-CM ) 11/09 Active 03/26 Miguelina Shelley MA Type 2 diabetes mellitus with hyperglycemia Imported from [employer] (26-Mar-20 at 08:40:32 AM) Falls W19.xxxA (ICD-10-CM ) 01/20 Active 03/26 Miguelina Shelley MA Unspecified fall, initial encounter Imported from [employer] (26-Mar-20 at 08:40:32 AM) Current smoker F17.200 (ICD-10-CM ) 10/01 Active 03/26 Miguelina Shelley MA Nicotine dependence, unspecified, uncomplicated Imported from [employer] (26-Mar-20 at 08:40:32 AM) Chronic neck pain M54.2 (ICD-10-CM ) 03/04 Active 03/26 Miguelina Shelley MA Cervicalgia Imported from [employer] (26-Mar-20 at 08:40:32 AM) Chronic anticoagulati on Z79.01 (ICD-10-CM ) 10/18 Active 03/26 Miguelina Shelley MA supervisor intermediates (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 Imported from [employer] (26-Mar-20 at 08:40:32 AM) Bilateral leg edema R60.0 (ICD-10-CM ) 10/18 Active 03/26 Miguelina Shelley MA Localized edema Imported from [facility]: [facility] (26-Mar-20 at 08:40:32 AM) Atrial fibrillation, persistent I48.19 (ICD-10-CM ) 01/20 Active 03/26 Miguelina Shelley MA Other persistent atrial fibrillation Imported from [facility]: [facility] (26-Mar-20 at 08:40:32 AM) Anxiety 33380789 (SNOMED CT) 09/13 Active 03/26 Miguelina Shelley MA Anxiety Imported from [facility]: [facility] (26-Mar-20 at 08:40:32 AM) LUMBAR DISC HERNIATION WITH RADICULOPATHY 759191767 (SNOMED CT) 03/27 Active 03/27 Shyanne PAYTONC Lumbar disc prolapse with radiculopathy SPONDYLOSIS, LUMBAR, WITH RADICULOPATHY 876228663 (SNOMED CT) 03/27 Active 03/27 Shyanne INIGUEZ-C Lumbosacral spondylosis with radiculopathy LOWER BACK PAIN 144346842 (SNOMED CT) 03/27 Active 03/27 Shyanne INIGUEZ-C Low back pain LUMBAR RADICULOPATHY 379751342 (SNOMED CT) 03/27 Active 03/27 Shyanne INIGUEZ-C Lumbar radiculopathy LUMBAR STENOSIS, L1-L5, W/O NEUROGENIC CLAUDICATION M48.061 (ICD-10-CM ) 02/27 Active 02/27 Melani Coppola MA Spinal stenosis, lumbar region without neurogenic claudication Mixed hyperlipidemi a 529933275 (SNOMED CT) 10/22 Active 02/27 Melani Coppola MA Mixed hyperlipidemia Imported from [facility]: [facility] (28-Feb-20 at 01:21:17 PM) Controlled type 2 diabetes mellitus without complication, without long-term current use of insulin E11.9 (ICD-10-CM ) 10/22 Active 02/27 Melani Coppola SHERIF Type 2 diabetes mellitus without complications Imported from [employer]: [facility] (28-Feb-20 at 01:21:17 PM) CKD (chronic kidney disease), symptom management only, stage 2 (mild) N18.2 (ICD-10-CM ) 03/31 Active 02/27 Melani Coppola MA Chronic kidney disease, stage 2 (mild) Imported from [employer]: [facility] (28-Feb-20 at 01:21:17 PM) Chronic obstructive pulmonary disease 92628562 (SNOMED CT) 03/31 Active 02/27 Melani Coppola MA Chronic obstructive pulmonary disease Imported from [employer]: [facility] (28-Feb-20 at 01:21:17 PM) Medications Medication Instructions Start Date Stop Date Generic Name NDC Provider METHOCARBAMOL 750 MG TABS 03/29 methocarbamol [id number] Joann Brown HOIST MECHANIC METHOCARBAMOL 750 MG TABS Take 1 tablet by mouth twice a day as needed muscle spasms 1 tablet TID PRN muscle spasms methocarbamol 37703778509 Joann Brown HOIST MECHANIC Tylenol 325 mg capsule acetaminophen 81600793272 Miguelina Shelley MA METFORMIN HCL 500 MG TABS 1 po tid 03/29 metformin 78828549989 Miguelina Shelley MA FENOFIBRATE 160 MG TABS TAKE ONE TABLET BY MOUTH DAILY 03/29 fenofibrate 70709174060 Miguelina Shelley MA PRAMIPEXOLE DIHYDROCHLORIDE 0.125 MG TABS Take 0.125 mg by mouth 3 (three) times daily. 03/29 pramipexole 60838069266 Miguelina Shelley MA LISINOPRIL 40 MG TABS TAKE ONE TABLET BY MOUTH DAILY 03/29 lisinopril 04393715254 Miguelina Shelley MA OXYBUTYNIN CHLORIDE ER 15 MG [id number] 1 po qd 03/29 oxybutynin chloride 57843543838 Miguelina Shelley MA LIDOCAINE 5 % PTCH 1 patch by Transdermal route every 12 (twelve) hours. 03/29 lidocaine 14396351627 Miguelina Shelley MA Psyllium (METAMUCIL FIBER PO) Take by mouth daily. 03/29 METAMUCIL FIBER PO Miguelina Shelley MA OMEPRAZOLE 40 MG CPDR Take 1 capsule by mouth daily. 03/29 omeprazole 55649503247 Miguelina Shelley MA FLUOCINONIDE 0.05 % CREA APPLY SPARINGLY TWO OR THREE TIMES DAILY NEEDED 03/29 fluocinonide 75332849833 Miguelina Shelley MA FREESTYLE JERI 3 SENSOR blood-glucose sensor 74083509155 Miguelina Shelley MA ONETOUCH DELICA PLUS [id number] lancets 93513736253 Miguelina Shelley MA METOPROLOL TARTRATE 25 MG TABS metoprolol tartrate 39875577911 Miguelina Shelley MA ELIQUIS 5 MG TABS apixaban 78635723548 C hrkyle Shelley MA INVOKANA 100 MG TABS canagliflozin 61332298133 Miguelina Shelley MA BD PEN NEEDLE MINI U/F 31G X 5 MM pen needle, diabetic 04223733600 Miguelina Shelley MA ROSUVASTATIN CALCIUM 5 MG TABS rosuvastatin 21203113287 Vance Shelley MA CARBIDOPA-LEVODOP A 25-100 MG TABS carbidopa-levod op a 64314652785 Miguelina Shelley MA LORAZEPAM 1 MG TABS lorazepam 15264157452 Miguelina Shelley MA MECLIZINE HCL 25 MG TABS meclizine 97906191358 Miguelina Shelley MA ONETOUCH ULTRA TEST STRP blood sugar diagnostic 46961966577 Miguelina Shelley MA CEPHALEXIN 250 MG CAPS cephalexin 29584552164 Miguelina Shelley MA FUROSEMIDE 40 MG TABS furosemide 26021687412 Miguelina Shelley MA BD SWAB SINGLE USE REGULAR PADS alcohol swabs 72178683992 Vance Shelley MA OXYCODONE HCL 5 MG TABS oxycodone 72034850477 Miguelina Shelley MA TORSEMIDE 20 MG TABS torsemide 50979334987 Miguelina Shelley MA PRAMIPEXOLE DIHYDROCHLORIDE 0.25 MG TABS pramipexole 60501980636 Miguelina Shelley MA LISINOPRIL 40 MG TABS lisinopril 98596817343 Miguelina Shelley MA METHOCARBAMOL 750 MG TABS 03/29 methocarbamol 65203290081 Miguelina Shelley MA PANTOPRAZOLE SODIUM 20 MG TBEC pantoprazole 71094038272 Chri robert Shelley MA PREGABALIN 100 MG CAPS Take 1 capsule by mouth 2 (two) times daily for 30 days. 04/15 pregabalin (LYRICA) 100 MG CAPS 42569304839 Melani Coppola MA OXYCODONE-ACETAMI NOPHEN 10-325 MG TABS 1 po bid prn 04/02 oxycodone-acetami nophen (PERCOCET) 10-325 MG TABS 19315757663 Melani Coppola MA APIXABAN (ELIQUIS) 5 MG TABS Take 1 tablet by mouth 2 (two) times daily for 30 days. 04/05 apixaban (ELIQUIS) 5 mg TABS Melani Coppola MA ALBUTEROL SULFATE HFA 108 (90 Base) MCG/ACT AERS Use 2 puffs every 6 (six) hours as needed. 03/27 albuterol 108 (90 Base) mcg/puff AERS 83847436521 Melani Coppola MA ESCITALOPRAM OXALATE 10 MG TABS TAKE ONE TABLET BY MOUTH EVERY EVENING 03/27 escitalopram (LEXAPRO) 10 MG TABS 68654875185 Melani Coppola MA CYCLOBENZAPRINE HCL 10 MG TABS Take 1 tablet by mouth 3 (three) times daily as needed (back pain). 03/27 cyclobenzaprine (FLEXERIL) 10 MG TABS 02614220485 Melani Coppola MA CARBIDOPA-LEVODOP A 25-100 MG TABS Take 1 tablet by mouth 3 (three) times daily. 03/27 carbidopa-levodop a (SINEMET) 25-100 MG TABS 64515080556 Melani Coppola MA ATENOLOL-CHLORTHA LIDONE 50-25 MG TABS TAKE ONE TABLET BY MOUTH DAILY 03/27 atenolol-chlortha lidone 50-25 MG TABS 18029247521 Melani Coppola MA ASPIRIN 81 MG TBEC Take 81 mg by mouth daily. 03/27 aspirin 81 MG TBEC 55878756050 Melani Coppola MA AMLODIPINE BESYLATE 10 MG TABS TAKE ONE TABLET BY MOUTH DAILY 03/27 amlodipine (NORVASC) 10 MG TABS 33129117559 Melani Coppola MA PREGABALIN 100 MG CAPS Take 1 capsule by mouth 2 (two) times daily for 30 days. 04/15 pregabalin (LYRICA) 100 MG CAPS 81929624774 Jyothi Crum OXYCODONE-ACETAMI NOPHEN 10-325 MG TABS 1 po bid prn 04/02 oxycodone-acetami nophen (PERCOCET) 10-325 MG TABS 59784599740 Jyothi Crum apixaban (ELIQUIS) 5 mg TABS Take 1 tablet by mouth 2 (two) times daily for 30 days. 04/05 apixaban (ELIQUIS) 5 mg TABS Jyothi Crum ALBUTEROL SULFATE HFA 108 (90 Base) MCG/ACT AERS Use 2 puffs every 6 (six) hours as needed. 03/27 albuterol 108 (90 Base) mcg/puff AERS 96998292676 Jyothi Crum Psyllium (METAMUCIL FIBER PO) Take by mouth daily. 03/29 Psyllium (METAMUCIL FIBER PO) Melani Coppola MA PREDNISONE 10 MG TABS Take 4 tablets by mouth daily for 2 days, THEN 3 tablets daily for 2 days, THEN 2 tablets daily for 2 days, THEN 1 tablet daily for 2 days. 02/28 predniSONE (DELTASONE) 10 MG TABS 99636192258 Melani Coppola MA PRAMIPEXOLE DIHYDROCHLORIDE 0.125 MG TABS Take 0.125 mg by mouth 3 (three) times daily. 03/29 pramipexole (MIRAPEX) 0.125 MG TABS 29808438686 Melani Coppola MA OXYBUTYNIN CHLORIDE ER 15 MG [id number] 1 po qd 03/29 oxybutynin 15 MG TB24 12012806119 Melani Coppola MA OMEPRAZOLE 40 MG CPDR Take 1 capsule by mouth daily. 03/29 omeprazole (PRILOSEC) 40 MG CPDR 87554462250 Melani Coppola MA METFORMIN HCL 500 MG TABS 1 po tid 03/29 metFORMIN (GLUCOPHAGE) 500 MG TABS 63125341879 Melani Coppola MA LISINOPRIL 40 MG TABS TAKE ONE TABLET BY MOUTH DAILY 03/29 lisinopril (PRINIVIL,ZESTRIL ) 40 MG TABS 39394733577 Melani Coppola MA LIDOCAINE 5 % PTCH 1 patch by Transdermal route every 12 (twelve) hours. 03/29 lidocaine (LIDODERM) 5 % PTCH 85528755432 Melani Coppola MA FLUOCINONIDE 0.05 % CREA APPLY SPARINGLY TWO OR THREE TIMES DAILY NEEDED 03/29 fluocinonide (LIDEX) 0.05 % CREA 91560259042 Melani Coppola MA FENOFIBRATE 160 MG TABS TAKE ONE TABLET BY MOUTH DAILY 03/29 fenofibrate (LOFIBRA) 160 MG TABS 12909866923 Melani Coppola MA ESCITALOPRAM OXALATE 10 MG TABS TAKE ONE TABLET BY MOUTH EVERY EVENING 03/27 escitalopram (LEXAPRO) 10 MG TABS 96147665584 Melani Coppola MA CYCLOBENZAPRINE HCL 10 MG TABS Take 1 tablet by mouth 3 (three) times daily as needed (back pain). 03/27 cyclobenzaprine (FLEXERIL) 10 MG TABS 80484687441 Melani Coppola MA CARBIDOPA-LEVODOP A 25-100 MG TABS Take 1 tablet by mouth 3 (three) times daily. 03/27 carbidopa-levodop a (SINEMET) 25-100 MG TABS 48507546871 Melani Coppola MA ATENOLOL-CHLORTHA LIDONE 50-25 MG TABS TAKE ONE TABLET BY MOUTH DAILY 03/27 atenolol-chlortha lidone 50-25 MG TABS 23514744947 Melani Coppola MA ASPIRIN 81 MG TBEC Take 81 mg by mouth daily. 02/28 aspirin 81 MG TBEC 92207773110 Melani Coppola MA AMLODIPINE BESYLATE 10 MG TABS TAKE ONE TABLET BY MOUTH DAILY 03/27 amlodipine (NORVASC) 10 MG TABS 92284851430 Mleani Coppola MA Medications Administered No information available. [...] Procedures Code Procedure Name Date Entry Date [id number] Tobacco Cessation Counseling Performed 2 Vital Signs Date Name Value Unit Description BMI (Body Mass Index) 38.83 kg/m2 Bod y Mass Index (Ratio) Height 69 [in_us] height E&M Weight Measured 263 [lb_av] weight E& M Weight Measured 263 [lb_av] weight E& M Immunizations No information available. Advance Directives No information available.
--- OUTSIDE RECORDS SUMMARY | 2025-04-18 12:21 | XMS_ITS | Clinical Summary ---
Author Organization [facility] Address [address] [place] [address] Phone Care Team Providers Care Salesperson Books Name Role Phone Sofia Bruner MD Primary [...] Insulin Pen Needle 30G X 5 MM [facility] Use to inject insulin per insulin order instructions. 100 each 3 09/08/19 24 Active Glucose Blood (BLOOD GLUCOSE TEST STRIPS) STRP Check blood sugar 4 to 5 times a day (E11.22) Uncontrolled diabetes with stage 4 CKD 150 strip 11 09/22/19 24 Active Continuous Blood Gluc Fishing Vessel Operator (FREESTYLE LEONARD 3 READER) DEVIIndications :Type 2 [...] Active lancets thin misc (ONETOUCH DELICA PLUS [id number]) USE TO CHECK BLOOD SUGAR 4 TO [...] Description 04/06/2025 Telephone [facility] [address] [place] [address] Centralized, Prior Authorization Type 2 diabetes mellitus with stage 3b chronic kidney disease, with long-term current use of insulin (HCC) (Primary Dx) 03/23/2025 Refill [facility] [address] [place] [address] Sofia Bruner MD 03/23/2025 Refill [facility] [address] [place] [phone] Munir Romero MD 03/09/2025 Refill [facility] [address] [place] [address] Sofia Bruner MD 03/08/2025 Refill [facility] [address] [place] [address] Sofia Bruner MD 02/24/2025 Telephone [facility] [address] [place] [address] Sofia Bruner MD 02/23/2025 Refill [facility] [address] [place] [address] Sofia Bruner MD 02/11/2025 Telephone [facility] [address] [place] [phone] Carolyn Jansen, Registered Nurse 01/24/2025 Refill [facility] [address] [place] [phone] Munir Romero MD 01/18/2025 Refill [facility] [address] [place] [address] Sfoia Bruner MD 01/17/2025 Refill [facility] [address] [place] [address] Sofia Bruner MD from Last 3 Months [...] car, in a tent, in an overnight mcfp, or temporarily in someone else's home (i.e. [employer]-surfing)? No 07/09/2024 Within the past 12 months, [...] car, in a tent, in an overnight mcfp, or temporarily in someone else's home (i.e. [...] 1:59 PM EST) Sofia Abbott MD Note: [email or web address] Ma Patient has no barriers to completing goals [...] 5 [email or web address] Medical Devices Implanted Type Area Health Education Coordinator Device Identifier Shelf Expiration Date Model / Serial / Lot Device Aaa Amulet 34mm - [id number] Implanted:Qty : 1 on 07/08/2024 by Bradley Hammond MD at [facility] Miscellaneous Left: Heart Smartdate 09/07/2027 [id number] / / [id number] Procedures Procedure Name Priority Date/Time Associated Diagnosis [...] given level of glycemic control. Tested at: [facility], [address] [place] [address] Blood 07/09/2024 5:08 AM EDT 07/09/2024 5:48 AM EDT us Tessa Ernst DO LAB BLOOD ORDERABLES Final Res ult [facility] [address] [place] [phone] [place] [address] [place] [address] * (ABNORMAL) BMP (Na,K,Cl,CO2,Glu,BUN,Creat,Ca) (07/08/2024 7:04 AM EDT) Pathologist [facility] NITROGEN 41(H) 8 - 26 mg/dL [facility] SODIUM 135 135 - 145 mmol/L [facility] POTASSIUM 3.5(L) 3.6 - 5.1 mmol/L [facility] CHLORIDE 94(L) 98 - 111 mmol/L [facility] CO2 30 21 - 31 mmol/L [facility] GLUCOSE, RANDOM 123(H) 70 - 99 mg/dL [facility] CREATININE 2.21(H) 0.70 - 1.30 mg/dL [facility] ANION GAP 11 4 - 16 mmol/L [facility] CALCIUM 8.8 8.5 - 10.4 mg/dL [facility] ESTIMATED GFR 32(L) >59 mL/min/1.7 3 m2 [facility] Comment: Estimated GFR was calculated using the CKD-EPI cr (2020) equation refit without race. The equation is recommended by the National Kidney Foundation - [place] Society of Nephrology Task Force. Tested at [facility] [id number] [place] [address] Whole Blood 07/08/2024 7:04 AM EDT 07/08/2024 7:32 AM EDT us Bradley Hammond MD LAB BLOOD ORDERABLES Final Resu lt [facility] [address] [place] [address] [address] * CT CHEST WO CONTRAST (12/31/2023 5:50 [...] documented transmission to the ordering physician per [facility] Radiology department protocol Narrative 12/31/2023 6:03 [...] the content of this report, please contact [facility] radiology by calling [phone] FINDINGS: LUNGS/AIRWAYS: Upper lobe predominant centrilobular groundglass [...] about the content of this report, pleasecontact [facility] radiology by calling [phone] FINDINGS: LUNGS/AIRWAYS: Upper lobe predominant centrilobular groundglass [...] for documented transmission to the ordering physicianper [facility] Radiology department protocol Sae Arthur MD CT Final Result * Prostate Specific Antigen (11/19/2023 3:36 PM EDT) PROSTATIC SPECIF AG 0.72 <=4.00 ng/mL [facility] Comment: (NOTE) The [employer] [...] inflammatory conditions of the prostate. Tested at: [facility], [place] [address] Whole Blood 11/19/2023 3:36 PM EDT 11/19/2023 3:41 PM EDT Sofia Bruner MD LAB BLOOD ORDERABLES F inal Result [facility] [address] [place] [address] [facility] [address] [place] [address] * (ABNORMAL) Microalbumin, Urine Random (includes MALB/Creat Ratio) (11/19/2023 3:36 PM EDT) MICROALBUMIN, UR 1,800.9 mg/L [facility] CREATININE, URINE RANDOM 46.6 mg/dL [facility] MICROALB/CREAT RATIO 3,865(H) 0 - 30 mg/g [facility] Comment:Tested at: [facility] [place] [facility] [address] Urine URINE SPECIMEN / Unknown 11/19/2023 3:36 PM EDT 11/19/2023 3:41 PM EDT Ida Baird PA-C URINE ORDERABLES NO PER Final Result Performing Organization Address [facility] Co de Phone Number [facility] [address] [place] [address] [place] [address] * (ABNORMAL) Lipid Panel (CHOL, TRIG, HDL, LDL) (11/19/2023 3:36 PM EDT) [facility] CHOLESTEROL 187 <200 mg/dL [facility] TRIGLYCERIDE 253(H) <150 mg/dL [facility] Comment: Reference Interval: Fasting <150 mg/dL Non-Fasting <175 mg/dL HDL CHOLESTEROL 46(L) >50 mg/dL [facility] LDL CHOLESTEROL (CALCULATED) 90 <130 mg/dL [facility] Comment: Interpretive Guidelines: <100 Optimal 100-129 Near Optimal 130-159 Borderline High >159 High TOTAL NON HDL CHOL 141(H) <130 mg/dL [facility] Comment:Tested at [place] [address] Whole Blood 11/19/2023 3:36 PM EDT 11/19/2023 3:41 PM EDT Sofia Bruner MD LAB BLOOD ORDERABLES F inal Result Performing Organization Address City/[facility]/ZIP Co de Phone Number [facility] [address] [place] [address] [place] [address] * Colonoscopy Procedure (01/08/2022 9:30 AM EDT) Narrative Lacy Mcmillan MD - 01/08/2022 9:30 AM EDT Lacy Mcmillan MD 01/08/2022 9:32 AM Patient: Chinmay Ardon Date of : 1955 Age: [age] year old Sex: male Unit: BTLR ENDOSCOPY Room/Bed: BTENDO/PB Location: [facility] Admitting Physician: LACY MCMILLAN Primary Care Physician: Sofia Bruner MD HISTORY: [...] DATE OF OPERATION: 01/08/2022 OPERATIVE SURGEON: Lacy Mcmillan MD The patient and I discussed that [...] Repeat colonoscopy 5 years Signed By: Lacy Mcmillan MD, 01/08/2022 Lacy Mcmillan MD PROCEDURE NOTE ORDERABLES Final Result * Hepatitis C Antibody (06/08/2018 9:15 AM EDT) HEPATITIS C AB Non Reactive Non-React [facility] Comment:Tested at: [facility], [address] [place] [address] Whole blood specimen (specimen) 06/08/2018 9:15 AM EDT 06/08/2018 9:19 AM EDT Sofia Bruner MD LAB BLOOD ORDERABLES F inal Result [facility] [address] [place] [address] [address] from Last 3 Months or Most Recently Relevant to Health Maintenance Insurance Advance Directives Documents on File Type Date Recorded 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
--- OUTSIDE RECORDS SUMMARY | 2025-04-18 12:21 | XMS_ITS | Encounter Summary ---
Author Organization [facility] Address [address] [place] [address] [place] [address] Phone Care Team Providers Care Insurance Biller Name Role Phone Sofia Bruner MD Primary Care Provider Reason for Visit * Reason Onset Date Comments Cpa 04/06/2025 Insulin Aspart F lexpen 100 units Encounter Details Date Type Department Care Team (Late st Contact Info) Description 04/06/2025 Telephone [facility] - [facility] [address] [place] [address] Centralized, Prior Authorization Type 2 diabetes mellitus with stage 3b chronic kidney disease, with long-term current use of insulin (HCC) (Primary Dx) Social History Tobacco Use [...] encounter Miscellaneous Notes * Telephone Encounter - Aliya De Leon - 04/12/2025 1:43 PM EDT Centralized Prior Authorization A prior authorization was requested for Insulin Aspart Flexpen. Prior authorization was not submitted due to the following reason(s): Step therapy required with formulary alternatives. Plan requires Humalog Cartridge, Humalog Kwikpen, Insulin Lispro Kwikpen, Humalog Rios Kwikpen, or Lyumjev Kwikpen. [facility] Escalera: [id number] Formulary reference used:Listed in coverage criteria Prior Auth status:Pending: clarification Is request for a GLP1? No Aliya De Leon CMA Prior Enterprise Systems Administrator * Telephone Encounter - Liza Orozco - 04/06/2025 1:53 PM EDT Received a call/fax from [facility] pharmacy requesting prior authorization for Insulin Aspart Flexpen 100 units No Escalera from Cover MyMeds was provided: Pharmacy card ID#: [id number] RX BIN: [id number] RX PCN: [id number] RX Group: [id number] documented [...] 1:59 PM EST) Sofia Abbott MD Note: [email or web address] Patient has no barriers to completing goals [...] Diagnosis Type 2 diabetes mellitus with stage 3b chronic kidney disease, with long-term current use of insulin (HCC)- Primary documented in this encounter Additional Health Concerns Assessment Noted Time PHQ-9 Depression Total Score: 2 09/18/19 24 12:35 PM EST PHQ-2 Depression Total Score: 0 12/29/19 24 4:17 PM EDT documented as of this encounter Care Teams Insurance Biller Relationship Specialty Start Date End Date Sofia Bruner MD PCP - General Family Medicine 10/24/12 documented as of this encounter
--- OUTSIDE RECORDS SUMMARY | 2025-04-18 12:21 | XMS_ITS | Encounter Summary ---
Author Organization [facility] Address [facility] [place] [address] Phone Care Team Providers Care Housekeeping Aide Name Role Phone Sofia Bruner MD Primary Care Provider Reason for Visit * Reason Comments Refill Request Encounter Details Date Type Department Care Team (Late st Contact Info) Description 03/23/2025 Refill [facility] - [facility] [address] [place] [address] Sofia Bruner MD [address] [place] [address] Social History Tobacco Use Types [...] 1:59 PM EST) Sofia Abbott MD Note: [email or web address] Patient has no barriers to completing goals [...] documented as of this encounter Care Teams Housekeeping Aide Relationship Specialty Start Date End Date Sofia Bruner MD PCP - General Family Medicine 10/24/12 documented as of this encounter
--- OUTSIDE RECORDS SUMMARY | 2025-04-18 12:21 | XMS_ITS | Encounter Summary ---
Author Organization [facility] Address [address] [place] [address] Phone Care Team Providers Care Functional Tester Typewriters Name Role Phone Sofia Bruner MD Primary Care Provider Reason for Visit * Reason Comments Refill Request Encounter Details Date Type Department Care Team (Late st Contact Info) Description 01/05/[address] [facility] - [facility] [address] [place] [address] Sofia Bruner MD [address] [place] [address] Type 2 diabetes mellitus with [...] 1:59 PM EST) Sofia Abbott MD Note: [email or web address] Patient has no barriers to completing goals [...] documented as of this encounter Care Teams Functional Tester Typewriters Relationship Specialty Start Date End Date Sofia Bruner MD PCP - General Family Medicine 10/24/12 documented as of this encounter
--- OUTSIDE RECORDS SUMMARY | 2025-04-18 12:21 | XMS_ITS | Encounter Summary ---
Author Organization [facility] Address [facility] [place] [address] Phone Care Team Providers Care Drying Machine Operator Package Yarns Name Role Phone Sofia Bruner MD Primary Care Provider Sofia Bruner MD Unavailable + [phone] Reason for Referral * MRI/CAT Scan (Routine) [...] Date Expiration Date Visits Requested Visits Authorized [id number] Pending Review Specialty Services Required 07/14/2024 07/14/2025 1 1 Encounter Details Date Type Department Care Team (Late st Contact Info) Description 07/14/2024 Orders Only [facility] Central Scheduling [address] [place] [address] [place] [address] [place], [place] [phone] Malignant neoplasm of right kidney, except renal [...] 1:59 PM EST) Sofia Abbott MD Note: [email or web address] Patient has no barriers to completing goals [...] documented as of this encounter Care Teams Drying Machine Operator Package Yarns Relationship Specialty Start Date End Date Sofia Bruner MD PCP - General Family Medicine 10/24/12 Sofia Bruner MD [address] [place] [address] PCP - Krish GORMAN Attributed Physician 02/07/24 09/07/24 documented as of this encounter
--- OUTSIDE RECORDS SUMMARY | 2025-04-18 12:21 | XMS_ITS | Encounter Summary ---
Author Organization [facility] Address [address] [place] [address] Phone Care Team Providers Care Upstream Biomanufacturing Technician Name Role Phone Sofia Bruner MD Primary Care Provider Sofia Bruner MD Unavailable + [phone] Nancy Garibay Unavailable Unavailable Sofia Bruner MD Unavailable + [phone] Dima Crenshaw Registered Nurse Unavailable U navailable Encounter Details Date Type Department Care Team ([facility] st Contact Info) Description 06/27/2022 Collaborative Link Encounter [facility] [address] [place] [phone] Social History Tobacco Use Types Packs/Day Years [...] exam ??? please have them contact their tunnel drier operator to schedule. Ifpatient does not have tunnel drier operator, have them contact I to schedule at [phone]. If patient has completed diabetic eye exam, please obtain provider/facility information and send telephone encounter with information to P Care Gaps [facility]. documented in this encounter Plan of Treatment [...] 1.3 Result Component 2.21(07/08/20 7:04 AM EDT) Sofai Abbott MD Exercising Regularly Self-Managemen t Not on track( 1:59 PM EST) Sofia Abbott MD Note: [email or web address] Patient has no barriers to completing goals [...] documented as of this encounter Care Teams Upstream Biomanufacturing Technician Relationship Specialty Start Date End Date Sofia Bruner MD PCP - General Family Medicine 10/24/12 Sofia Bruner MD [address] [place] [address] PCP - Madhu GORMAN Attributed Physician 02/06/21 01/06/24 Sofia Bruner MD [address] [place] [address] PCP - Krish GORMAN Attributed Physician 02/07/24 09/07/24 Nancy Garibay Executive Advisor Complex Care Management 09/18/23 01/05/24 Dima Crenshaw, Registered Nurse Registered Nurse 07/12/24 07/13/24 documented as of this encounter
--- OUTSIDE RECORDS SUMMARY | 2025-04-18 12:21 | XMS_ITS ---
Author Organization [facility] Address [address] [place] [address] Phone Care Team Providers Care Demand Planner Name Role Phone Sofia Bruner MD Primary [...]
--- OUTSIDE RECORDS SUMMARY | 2025-04-18 12:21 | XMS_ITS | Encounter Summary ---
Author Organization [facility] Address [address] [place] [address] Care Team Providers Care Turf Keeper Name Role Phone Unavailable Primary Care Provider Unavailabl e Encounter Details Date Type Department Care Team (Late Contact Info) Description 03/09/2025 Orders Only [facility] [address] [place] [address] Lydia Rojas Microalbuminuria (Primary Dx); CKD [...] Description 06/24/2025 12:20 PM EDT Office Visit [facility] [address] [address] Bar Seals MD [address] [place] [phone] Scheduled Orders Name Type Priority Associated Diagnoses [...] kidney disease) stage 4, GFR 15-29 ml/min ([facility]) Microalbuminuria Expected: 03/09/2025 (Approximate), Expires: 09/09/2026 Protein, Random, Urine with Creatinine Lab Routine CKD (chronic kidney disease) stage 4, GFR 15-29 ml/min ([facility]) Microalbuminuria Expected: 03/09/2025 (Approximate), Expires: 09/09/2026 Urinalysis with reflex microscopic (Culture NOT Included) Lab Routine CKD (chronic kidney disease) stage 4, GFR 15-29 ml/min ([facility]) Microalbuminuria Expected: 03/09/2025 (Approximate), Expires: 09/09/2026 PTH Intact Total Lab Routine CKD (chronic kidney disease) stage 4, GFR 15-29 ml/min ([facility]) Vitamin D insufficiency Microalbuminuria Expected: 03/09/2025 (Approximate), Expires: 09/09/2026 Vitamin D 25 Hydroxy Lab Routine CKD (chronic kidney disease) stage 4, GFR 15-29 ml/min ([facility]) Vitamin D insufficiency Microalbuminuria Expected: 03/09/2025 (Approximate), Expires: 09/09/2026 Albumin-creatinine ratio, urine, random Lab Routine CKD (chronic kidney disease) stage 4, GFR 15-29 ml/min ([facility]) Microalbuminuria Expected: 03/09/2025 (Approximate), Expires: 09/09/2026 documented as of this encounter Visit Diagnoses Diagnosis Microalbuminuria- Primary Proteinuria CKD (chronic kidney disease) stage 4, GFR 15-29 ml/min (CMS/HCC) Chronic kidney disease, Stage IV (severe) Vitamin D insufficiency documented in this encounter
--- OUTSIDE RECORDS SUMMARY | 2025-04-18 12:21 | XMS_ITS | Encounter Summary ---
Author Organization [facility] Address [facility] [address] [place] [address] Phone Care Team Providers Care Interior Assemblies Installer Name Role Phone Sofia Bruner MD Primary Care Provider Reason for Visit * Reason Comments Refill Request Encounter Details Date Type Department Care Team (Late st Contact Info) Description 01/05/2025 Refill [facility] - [facility] Physicians [address] [place] [address] Faisal Olvera MD [address] [place] [address] Social History Tobacco Use Types Packs/Day Years [...] 1:59 PM EST) Sofia Abbott MD Note: [email or web address] Patient has no barriers to completing goals [...] documented as of this encounter Care Teams Interior Assemblies Installer Relationship Specialty Start Date End Date Sofia Bruner MD PCP - General Family Medicine 10/24/12 documented as of this encounter
--- OUTSIDE RECORDS SUMMARY | 2025-04-18 12:21 | XMS_ITS | Encounter Summary ---
Author Organization [facility] Address [facility] [place] [address] Phone Care Team Providers Care New Car Make Ready Mechanic Name Role Phone Sofia Bruner MD Primary Care Provider Reason for Visit * Reason Comments Refill Request Encounter Details Date Type Department Care Team (Late st Contact Info) Description 03/08/2025 Refill [facility] - [facility] [address] [place] [address] Sofia Bruner MD [address] [place] [address] Social History Tobacco Use Types [...] car, in a tent, in an overnight fdc, or temporarily in someone else's home (i.e. [...] car, in a tent, in an overnight fdc, or temporarily in someone else's home (i.e. [...] 1:59 PM EST) Sofia Abbott MD Note: [email or web address] Limited Patient has no barriers to completing goals [...] documented as of this encounter Care Teams New Car Make Ready Mechanic Relationship Specialty Start Date End Date Sofia Bruner MD PCP - General Family Medicine 10/24/12 documented as of this encounter
--- OUTSIDE RECORDS SUMMARY | 2025-04-18 12:21 | XMS_ITS | Encounter Summary ---
Author Organization [facility] Address [address] [place] [address] [place] [address] Phone Care Team Providers Care Dinkey Mechanic Name Role Phone Sofia Bruner MD Primary Care Provider Reason for Visit * Reason Comments Refill Request Encounter Details Date Type Department Care Team (Late st Contact Info) Description 03/23/2025 Refill [facility] [address] [place] [address] Munir Romero MD [address] [place] [address] Social History Tobacco Use Types [...] car, in a tent, in an overnight residential, or temporarily in someone else's home (i.e. [...] car, in a tent, in an overnight residential, or temporarily in someone else's home (i.e. [...] 1:59 PM EST) Sofia Abbott MD Note: [email or web address] Patient has no barriers to completing goals [...] documented as of this encounter Care Teams Dinkey Mechanic Relationship Specialty Start Date End Date Sofia Bruner MD PCP - General Family Medicine 10/24/12 documented as of this encounter
--- OUTSIDE RECORDS SUMMARY | 2025-04-18 12:21 | XMS_ITS | Encounter Summary ---
Author Organization [facility] Address [address] [place] [address] [place] [address] Phone Care Team Providers Care Front End Loader Driver Name Role Phone Sofia Bruner MD Primary Care Provider Reason for Visit * Reason Comments Refill Request Encounter Details Date Type Department Care Team (Late st Contact Info) Description 01/24/2025 Refill [facility] [address] [place] [address] Munir Romero MD [address] [place] [address] Social History Tobacco Use Types [...] car, in a tent, in an overnight intermediate, or temporarily in someone else's home (i.e. [...] car, in a tent, in an overnight intermediate, or temporarily in someone else's home (i.e. [...] 1:59 PM EST) Sofia Abbott MD Note: [email or web address] Patient has no barriers to completing [...] documented as of this encounter Care Teams Front End Loader Driver Relationship Specialty Start Date End Date Sofia Bruner MD PCP - General Family Medicine 10/24/12 documented as of this encounter
--- OUTSIDE RECORDS SUMMARY | 2025-04-18 12:21 | XMS_ITS | Encounter Summary ---
Author Organization [facility] Address [facility] [place] [address] Phone Care Team Providers Care Shuttle Van Driver Name Role Phone Sofia Bruner MD Primary Care Provider Sofia Bruner MD Unavailable + [phone] Nancy Garibay Unavailable Unavailable Sofia Bruner MD Unavailable + [phone] Dima Crenshaw Registered Nurse Unavailable U navailable Encounter Details Date Type Department Care Team ([facility] st Contact Info) Description 08/08/2023 Collaborative Link Encounter [facility] [address] [place], [place] [phone] Social History Tobacco Use Types Packs/Day Years [...] Left voicemail advising patient to return call. Sarbari message sent to patient. Patient is due for diabetic eye exam ??? please have them contact their cylinder checker to schedule. Ifpatient does not have cylinder checker, have them contact [facility] to schedule at [phone]. If patient has completed diabetic eye exam, please obtain provider/facility information and send telephone encounter with information to P Care Gaps [facility]. documented in this encounter Plan of Treatment [...] 1:59 PM EST) Sofia Abbott MD Note: [email or web address] Patient has no barriers to completing goals [...] documented as of this encounter Care Teams Shuttle Van Driver Relationship Specialty Start Date End Date Sofia Bruner MD PCP - General Family Medicine 10/24/12 Sofia Bruner MD [address] [place] [address] PCP - Madhu GORMAN Attributed Physician 02/06/21 01/06/24 Sofia Bruner MD [address] [place] [address] PCP - Krish GORMAN Attributed Physician 02/07/24 09/07/24 Nancy Garibay Rubberizing Mechanic Complex Care Management 09/18/23 01/05/24 Dima Crenshaw, Registered Nurse Registered Nurse 07/12/24 07/13/24 documented as of this encounter
--- OUTSIDE RECORDS SUMMARY | 2025-04-18 12:21 | XMS_ITS | Encounter Summary ---
Author Organization [facility] Address [address] [place] [address] [place] [address] Phone Care Team Providers Care Tail Edger Name Role Phone Sofia Bruner MD Primary Care Provider Sofia Bruner MD Unavailable + [phone] Encounter Details Date Type Department Care Team (Late st Contact Info) Description 07/26/2024 Telephone [facility] [address] [place] [address] Munir Romero MD [address] [place] [address] Social History Tobacco Use Types [...] 1:59 PM EST) Sofia Abbott MD Note: [email or web address] Patient has no barriers to completing goals [...] documented as of this encounter Care Teams Tail Edger Relationship Specialty Start Date End Date Sofia Bruner MD PCP - General Family Medicine 10/24/12 Sofia Bruner MD [address] [place] [address] PCP - Krish GORMAN Attributed Physician 02/07/24 09/07/24 documented as of this encounter
--- OUTSIDE RECORDS SUMMARY | 2025-04-18 12:21 | XMS_ITS | Encounter Summary ---
Author Organization [facility] Address [facility] [place] [address] Phone Care Team Providers Care Yarn Dyer Name Role Phone Sofia Bruner MD Primary Care Provider Reason for Visit * Reason Comments Refill Request Encounter Details Date Type Department Care Team (Late st Contact Info) Description 02/23/2025 Refill [facility]ician [facility] - [facility] [address] [place] [address] Sofia Bruner MD [address] [place] [address] Social History Tobacco Use Types [...] 1:59 PM EST) Sofia Abbott MD Note: [email or web address] Patient has no barriers to completing goals [...] documented as of this encounter Care Teams Yarn Dyer Relationship Specialty Start Date End Date Sofia Bruner MD PCP - General Family Medicine 10/24/12 documented as of this encounter
--- OUTSIDE RECORDS SUMMARY | 2025-04-18 12:21 | XMS_ITS | Encounter Summary ---
Author Organization [facility] Address [facility] [place] [address] Phone Care Team Providers Care Is Technician Name Role Phone Sofia Bruner MD Primary Care Provider Sofia Bruner MD Unavailable + [phone] Nancy Garibay Unavailable Unavailable Sofia Bruner MD Unavailable + [phone] Dima Crenshaw Registered Nurse Unavailable U navailable Encounter Details Date Type Department Care Team ([facility] st Contact Info) Description 06/18/2022 Collaborative Link Encounter [facility] [address] [place] [phone] Social History Tobacco Use Types Packs/Day Years [...] exam ??? please have them contact their ship's cook to schedule. Ifpatient does not have ship's cook, have them contact I to schedule at [phone]. If patient has completed diabetic eye exam, please obtain provider/facility information and send telephone encounter with information to P Care Gaps [facility]. documented in this encounter Plan of [...] 1:59 PM EST) Sofia Abbott MD Note: [email or web address] Patient has no barriers to completing goals [...] documented as of this encounter Care Teams Is Technician Relationship Specialty Start Date End Date Sofia Bruner MD PCP - General Family Medicine 10/24/12 Sofia Bruner MD [address] [place] [address] PCP - Madhu GORMAN Attributed Physician 02/06/21 01/06/24 Sofia Bruner MD [address] [place] [address] PCP - Krish GORMAN Attributed Physician 02/07/24 09/07/24 Nancy Garibay Union Representative Complex Care Management 09/18/23 01/05/24 Dima Crenshaw, Registered Nurse Registered Nurse 07/12/24 07/13/24 documented as of this encounter
--- OUTSIDE RECORDS SUMMARY | 2025-04-18 12:22 | XMS_ITS | Encounter Summary ---
Author Organization [facility] Address [address] [place] [address] [place] [address] Phone Care Team Providers Care Petroleum Engineering Teacher Name Role Phone Sofia Bruner MD Primary Care Provider Sofia Bruner MD Unavailable +[phone] Nancy Garibay Unavailable Unavailable Sofia Bruner MD Unavailable +[phone] Dima Crenshaw Registered Nurse Unavailable U navailable Reason for Visit * Reason Comments Refill Request Encounter Details Date Type Department Care Team (Late st Contact Info) Description 05/01/2023 Refill [facility] Physician Partners - [facility] Phys[facility] [address] [place] [address] Sofia Bruner MD [address] [place] [address] Anxiety Social History Tobacco Use [...] 1:59 PM EST) Sofia Abbott MD Note: [email or web address] [email or web address] Patient has no barriers to completing goals [...] documented as of this encounter Care Teams Petroleum Engineering Teacher Relationship Specialty Start Date End Date Sofia Bruner MD PCP - General Family Medicine 10/24/12 Sofia Bruner MD [address] [place] [address] PCP - Madhu GORMAN Attributed Physician 02/06/21 01/06/24 Sofia Bruner MD [address] [place] [address] PCP - Krish GORMAN Attributed Physician 02/07/24 09/07/24 Nancy Garibay Poultry Farmer Complex Care Management 09/18/23 01/05/24 Dima Crenshaw, Registered Nurse Registered Nurse 07/12/24 07/13/24 documented as of this encounter
--- OUTSIDE RECORDS SUMMARY | 2025-04-18 12:22 | XMS_ITS | Encounter Summary ---
Author Organization [facility] Address [facility] [place] [address] Phone Care Team Providers Care Power Brake Operator Name Role Phone Sofia Bruner MD Primary Care Provider Sofia Bruner MD Unavailable + [phone] Dima Crenshaw Registered Nurse Unavailable U navailable Encounter Details Date Type Department Care Team (Late st Contact Info) Description 01/22/2024 Orders Only [facility] Central Scheduling [address] [place], [place] [address] [place] [address] [place], [place] [id number] Malignant neoplasm of right kidney, except renal [...] 1:59 PM EST) Sofia Abbott MD Note: [email or web address] Patient has no barriers to completing goals [...] documented as of this encounter Care Teams Power Brake Operator Relationship Specialty Start Date End Date Sofia Bruner MD PCP - General Family Medicine 10/24/12 Sofia Bruner MD [address] [place] [address] PCP - Krish GORMAN Attributed Physician 02/07/24 09/07/24 Dima Crenshaw, Registered Nurse Registered Nurse 07/12/24 07/13/24 documented as of this encounter
--- OUTSIDE RECORDS SUMMARY | 2025-04-18 12:22 | XMS_ITS | Encounter Summary ---
Author Organization [facility] S[facility] TP P Address [address] [place] [address] [place] [address] Phone Care Team Providers Care Scrap Collector Name Role Phone Sofia Bruner MD Primary Care Provider Sofia Bruner MD Unavailable [phone] Nancy Garibay Unavailable Unavailable Sofia Bruner MD Unavailable [phone] Dima Crenshaw Registered Nurse Unavailable U navailable Reason for Visit * Reason Comments Refill Request Encounter Details Date Type Department Care Team (Late st Contact Info) Description 06/01/2023 Refill [facility] [address] [place] [address] Munir Romero MD [address] [place] [address] Social History Tobacco Use Types [...] 1:59 PM EST) Sofia Abbott MD Note: [email or web address] Patient has no barriers to completing goals [...] documented as of this encounter Care Teams Scrap Collector Relationship Specialty Start Date End Date Sofia Bruner MD PCP - General Family Medicine 10/24/12 Sofia Bruner MD [address] [place] [address] PCP - Madhu GORMAN Attributed Physician 02/06/21 01/06/24 Sofia Bruner MD [address] [place] [address] PCP - Krish GORMAN Attributed Physician 02/07/24 09/07/24 Nancy Garibay Piped Buttonhole Machine Operator Complex Care Management 09/18/23 01/05/24 Dima Crenshaw, Registered Nurse Registered Nurse 07/12/24 07/13/24 documented as of this encounter
--- OUTSIDE RECORDS SUMMARY | 2025-04-18 12:22 | XMS_ITS | Encounter Summary ---
Author Organization [employer] [facility]BO [facility] TP P Address [facility] [place] [address] Phone Care Team Providers Care Mixer Blender Name Role Phone Sofia Bruner MD Primary Care Provider Sofia Bruner MD Unavailable [phone] Lyla Nieves Registered Nurse Unavailable U navailable Sofia Bruner MD Unavailable Nancy Garibay Unavailable Unavailable Sofia Bruner MD Unavailable [phone] Dima Crenshaw Registered Nurse Unavailable U navailable Encounter Details Date Type Department Care Team (Late st Contact Info) Description 06/26/2020 Collaborative Link Encounter [facility] [address] [place] [address] Leoncio Mckenzie LPN Social History [...] 1:59 PM EST) Sofia Abbott MD Note: [email or web address] Patient has no barriers to completing goals [...] documented as of this encounter Care Teams Mixer Blender Relationship Specialty Start Date End Date Sofia Bruner MD PCP - General Family Medicine 10/24/12 Sofia Bruner MD [address] [place] [address] PCP - Krish GORMAN Attributed Physician 10/09/20 01/05/21 Sofia Bruner MD [address] [place] [address] PCP - Madhu GORMAN Attributed Physician 02/06/21 01/06/24 Sofia Bruner MD [address] [place] [address] PCP - Krish GORMAN Attributed Physician 02/07/24 09/07/24 Lyla Nieves, Registered Nurse Registered Nurse Complex Care Management 02/06/21 06/25/21 Nancy Garibay Machine Tool Mechanic Complex Care Management 09/18/23 01/05/24 Dima Crenshaw, Registered Nurse Registered Nurse 07/12/24 07/13/24 documented as of this encounter
--- OUTSIDE RECORDS SUMMARY | 2025-04-18 12:22 | XMS_ITS | Encounter Summary ---
Author Organization [facility] Address [facility] [place] [address] Phone Care Team Providers Care Manager Functional Name Role Phone Sofia Bruner MD Primary Care Provider Sofia Bruner MD Unavailable + [phone] Nancy Garibay Unavailable Unavailable Sofia Bruner MD Unavailable + [phone] Dima Crenshaw Registered Nurse Unavailable U navailable [...] Expiration Date V isits Requested Visits Authorized [id number] Closed Specialty Services Required 12/15/2023 03/13/2024 1 [...] Expiration Date V isits Requested Visits Authorized [id number] Closed Specialty Services Required 12/15/2023 03/13/2024 0 0 Encounter Details Date Type Department Care Team (Late st Contact Info) Description 12/12/2023 Orders Only [facility] Central Scheduling [address] [place] [address] [place] [address] [place] [address] Urge incontinence (Primary Dx); Hypertension, essential; History [...] 1:59 PM EST) Sofia Abbott MD Note: [email or web address] Patient has no barriers to completing goals [...] the content of this report, [facility] by calling [phone] FINDINGS: LOWER CHEST: Described on concurrent chest [...] about the content of this report, pleasecontact [facility] by calling [phone] FINDINGS: LOWER CHEST: Described on concurrent chest [...] documented transmission to the ordering physician per [facility] Radiology department protocol Narrative 12/31/2023 6:03 PM [...] the content of this report, please contact [facility] radiology by calling [phone] FINDINGS: LUNGS/AIRWAYS: Upper lobe predominant centrilobular groundglass [...] about the content of this report, pleasecontact [facility] radiology by calling [phone] FINDINGS: LUNGS/AIRWAYS: Upper lobe predominant centrilobular groundglass [...] for documented transmission to the ordering physicianper [facility] department protocol Sae Arthur MD CT [...] as of this encounter Care Teams Manager Functional Relationship Specialty Start Date End Date Sofia Bruner MD PCP - General Family Medicine 10/24/12 Sofia Bruner MD [address] [place] [address] PCP - Madhu GORMAN Attributed Physician 02/06/21 01/06/24 Sofia Bruner MD [address] [place] [address] PCP - Krish GORMAN Attributed Physician 02/07/24 09/07/24 Nancy Garibay Recruiter Specialist Complex Care Management 09/18/23 01/05/24 Dima Crenshaw, Registered Nurse Registered Nurse 07/12/24 07/13/24 documented as of this encounter
--- OUTSIDE RECORDS SUMMARY | 2025-04-18 12:22 | XMS_ITS | Encounter Summary ---
Author Organization [employer] SBO [facility] TP P Address [facility] [place] [address] Phone Care Team Providers Care Eyeglass Lens Grinder Name Role Phone Sofia Bruner MD Primary Care Provider Sofia Bruner MD Unavailable [phone] Lyla Nieves Registered Nurse Unavailable U navailable Sofia Bruner MD Unavailable Nancy Garbiay Unavailable Unavailable Sofia Bruner MD Unavailable [phone] Dima Crenshaw Registered Nurse Unavailable U navailable Encounter Details Date Type Department Care Team (Late st Contact Info) Description 06/23/2020 Collaborative Link Encounter [facility] [address] [place] [address] Leoncio Mckenzie LPN Social History [...] 1:59 PM EST) Sofia Abbott MD Note: [email or web address] Patient has no barriers to completing goals [...] documented as of this encounter Care Teams Eyeglass Lens Grinder Relationship Specialty Start Date End Date Sofia Bruner MD PCP - General Family Medicine 10/24/12 Sofia Bruner MD [address] [place] [address] PCP - Krish GORMAN Attributed Physician 10/09/20 01/05/21 Sofia Bruner MD [address] [place] [address] PCP - Madhu GORMAN Attributed Physician 02/06/21 01/06/24 Sofia Bruner MD [address] [place] [address] PCP - Krish GORMAN Attributed Physician 02/07/24 09/07/24 Lyla Nieves, Registered Nurse Registered Nurse Complex Care Management 02/06/21 06/25/21 Nancy Garibay Documentation Designer Complex Care Management 09/18/23 01/05/24 Dima Crenshaw, Registered Nurse Registered Nurse 07/12/24 07/13/24 documented as of this encounter
--- OUTSIDE RECORDS SUMMARY | 2025-04-18 12:22 | XMS_ITS | Encounter Summary ---
Author Organization [facility] S[facility] TP P Address [address] [place] [address] [place] [address] Phone Care Team Providers Care Senior Grants Officer Name Role Phone Sofia Bruner MD Primary Care Provider Sofia Bruner MD Unavailable [phone] Nancy Garibay Unavailable Unavailable Sofia Bruner MD Unavailable [phone] Dima Crenshaw Registered Nurse Unavailable U navailable Reason for Visit * Reason Comments Refill Request Encounter Details Date Type Department Care Team (Late st Contact Info) Description 05/07/2023 Refill [facility] [address] [place] [address] Sofia Bruner MD [address] [place] [address] Anxiety Social History Tobacco Use [...] 1:59 PM EST) Sofia Abbott MD Note: [email or web address] Patient has no barriers to completing goals [...] as of this encounter Care Teams Senior Grants Officer Relationship Specialty Start Date End Date Sofia Bruner MD PCP - General Family Medicine 10/24/12 Sofia Bruner MD [address] [place] [address] PCP - Madhu GORMAN Attributed Physician 02/06/21 01/06/24 Sofia Bruner MD [address] [place] [address] PCP - Krish GORMAN Attributed Physician 02/07/24 09/07/24 Nancy Garibay Platform Beater Complex Care Management 09/18/23 01/05/24 Dima Crenshaw, Registered Nurse Registered Nurse 07/12/24 07/13/24 documented as of this encounter
--- OUTSIDE RECORDS SUMMARY | 2025-04-18 12:22 | XMS_ITS | Encounter Summary ---
Author Organization [facility] Address [facility] [address] [place] [address] Phone Care Team Providers Care Work Environment Safety Inspector Name Role Phone Sofia Bruner MD Primary Care Provider Sofia Bruner MD Unavailable + [phone] Dima Crenshaw Registered Nurse Unavailable U navailable [...] Expiration Date V isits Requested Visits Authorized [id number] Closed Specialty Services Required 03/09/2024 03/09/2025 1 1 Encounter Details Date Type Department Care Team (Late st Contact Info) Description 03/09/2024 Orders Only [facility] Central Scheduling [address] [place] [address] [place] [address] [place] [address] Other specified disorders of kidney and ureter [...] car, in a tent, in an overnight longterm, or temporarily in someone else's home (i.e. [...] car, in a tent, in an overnight longterm, or temporarily in someone else's home (i.e. [...] 1:59 PM EST) Sofia Abbott MD Note: [email or web address] Patient has no barriers to completing goals [...] documented as of this encounter Care Teams Work Environment Safety Inspector Relationship Specialty Start Date End Date Sofia Bruner MD PCP - General Family Medicine 10/24/12 Sofia Bruner MD [address] [facility] [place] [address] PCP - Krish GORMAN Attributed Physician 02/07/24 09/07/24 Dima Crenshaw, Registered Nurse Registered Nurse 07/12/24 07/13/24 documented as of this encounter
== END 2025-04-15 23:59 | disposition home or self-care (01) ==
LOC: LAB.DROPOF 04-18 12:19
PROVIDERS: PCP Family Medicine; Visit Provider Family Medicine
DX: Z09 Encounter for follow-up examination after completed treatment for conditions other than malignant neoplasm (principal); E11.69 Type 2 diabetes mellitus with other specified complication
CPT/HCPCS: 83036; 85025

== ENCOUNTER 2025-06-21 18:34 | Outpatient (CLI) | payer MEDICARE, SELFPAY ==
--- OUTSIDE RECORDS SUMMARY | 2025-06-21 18:37 | XMS_ITS | Encounter Summary ---
Author Organization [facility] TP P Address [facility] [place] [address] Phone Care Team Providers Care Shear Operator Helper Name Role Phone Sofia Bruner MD Primary Care Provider Reason for Visit * Reason Comments Refill Request Encounter Details Date Type Department Care Team (Late st Contact Info) Description 03/08/2025 Refill [facility] [address] [place] [address] Sofia Bruner MD [address] [facility] [place] [address] Social History Tobacco Use Types [...] 1:59 PM EST) Sofia Abbott MD Note: [email or web address] Patient has no barriers to completing goals [...] documented as of this encounter Care Teams Shear Operator Helper Relationship Specialty Start Date End Date Sofia Bruner MD PCP - General Family Medicine 10/24/12 documented as of this encounter
--- OUTSIDE RECORDS SUMMARY | 2025-06-21 18:37 | XMS_ITS | Encounter Summary ---
Author Organization [facility] S[facility] TP P Address [facility] [address] [place] [place] [address] Phone Care Team Providers Care Body Specialist Name Role Phone Sofia Bruner MD Primary Care Provider Reason for Visit * Reason Comments Refill Request Encounter Details Date Type Department Care Team (Late st Contact Info) Description 02/23/2025 Refill [facility] - [facility] Phys[facility] [address] [place] [address] Sofia Bruner MD [address] [place] [address] Social History Tobacco Use Types [...] 1:59 PM EST) Sofia Abbott MD Note: [email or web address] Patient has no barriers to completing goals [...] documented as of this encounter Care Teams Body Specialist Relationship Specialty Start Date End Date Sofia Bruner MD PCP - General Family Medicine 10/24/12 documented as of this encounter
--- OUTSIDE RECORDS SUMMARY | 2025-06-21 18:37 | XMS_ITS | Encounter Summary ---
Author Organization [facility] S[facility] TP P Address [address] [place] [address] [place] [address] Phone Care Team Providers Care Cab Starter Name Role Phone Sofia Bruner MD Primary Care Provider Reason for Visit * Reason Comments Refill Request Encounter Details Date Type Department Care Team (Late st Contact Info) Description 01/24/2025 Refill [facility] [address] [place] [address] Munir Bailey MD [address] [place] [address] Social History Tobacco Use Types [...] car, in a tent, in an overnight halfway, or temporarily in someone else's home (i.e. [...] car, in a tent, in an overnight halfway, or temporarily in someone else's home (i.e. [...] 1:59 PM EST) Sofia Abbott MD Note: [email or web address] Patient has no barriers to completing goals [...] documented as of this encounter Care Teams Cab Starter Relationship Specialty Start Date End Date Sofia Bruner MD PCP - General Family Medicine 10/24/12 documented as of this encounter
--- OUTSIDE RECORDS SUMMARY | 2025-06-21 18:37 | XMS_ITS | Encounter Summary ---
Author Organization [facility] Address [facility] [place] [address] Phone Care Team Providers Care Reexaminer Name Role Phone Sofia Bruner MD Primary Care Provider Reason for Visit * Reason Comments Refill Request Encounter Details Date Type Department Care Team (Late st Contact Info) Description 03/23/2025 Refill [facility] [address] [place] [address] Sofia Bruner MD [address] [place] [address] Social History Tobacco Use Types [...] 1:59 PM EST) Sofia Abbott MD Note: [email or web address] Patient has no barriers to completing goals [...] documented as of this encounter Care Teams Reexaminer Relationship Specialty Start Date End Date Sofia Bruner MD PCP - General Family Medicine 10/24/12 documented as of this encounter
--- OUTSIDE RECORDS SUMMARY | 2025-06-21 18:37 | XMS_ITS | Clinical Summary ---
Author Organization [facility] Address [address] [place] [address] Phone Care Team Providers Care Auto Body Repair Teacher Name Role Phone Moises KEYS, Joann Trevino Conditions or Problems Problem Name Problem Code Onset Date Status Entry Date Provider Comment Standard Description Annotate BACK PAIN, LOW 887635268 (SNOMED CT) 03/29 Active 03/29 Joann De Leon NP Low back pain OVERWEIGHT 118144184 (SNOMED CT) 03/29 Active 03/29 Miguelina Shelley MA Overweight Thrombocytope lissy, unspecified D69.6 (ICD-10-CM ) 09/11 Active 03/26 Miguelina Shelley MA Thrombocytopeni a, unspecified Imported from [facility]: [facility] (26-Mar-20 at 08:40:32 AM) Paroxysmal atrial fibrillation 274932048 (SNOMED CT) 10/18 Active 03/26 Miguelina Shelley MA Paroxysmal atrial fibrillation Imported from [facility]: [facility] (26-Mar-20 at 08:40:32 AM) Parkinson's disease, unspecified whether dyskinesia present, unspecified whether manifestation s fluctuate G20.A1 (ICD-10-CM ) 10/18 Active 03/26 Miguelina Shelley MA Parkinson's disease without dyskinesia, without mention of fluctuations Imported from [facility]: [facility] (26-Mar-20 at 08:40:32 AM) OAB (overactive bladder) N32.81 (ICD-10-CM ) 10/23 Active 03/26 Miguelina Shelley MA Overactive bladder Imported from [facility]: [facility] (26-Mar-20 at 08:40:32 AM) Malignant neoplasm of right kidney, except renal pelvis C64.1 (ICD-10-CM ) 10/01 Active 03/26 Miguelina Shelley MA Malignant neoplasm of right kidney, except renal pelvis Imported from [facility] (26-Mar-20 at 08:40:32 AM) Lumbosacral radiculopathy 2332448 (SNOMED CT) 02/19 Active 03/26 Miguelina Shelley MA Lumbosacral radiculopathy Imported from [facility] (26-Mar-20 at 08:40:32 AM) Legal blindness, as defined in [place] H54.8 (ICD-10-CM ) 10/20 Active 03/26 Miguelina Shelley MA Legal blindness, as defined in [place] Imported from [facility] (26-Mar-20 at 08:40:32 AM) Inadequately controlled diabetes mellitus E11.65 (ICD-10-CM ) 11/09 Active 03/26 Miguelina Shelley MA Type 2 diabetes mellitus with hyperglycemia Imported from [facility] (26-Mar-20 at 08:40:32 AM) Falls W19.xxxA (ICD-10-CM ) 01/20 Active 03/26 Miguelina Shelley MA Unspecified fall, initial encounter Imported from [facility] (26-Mar-20 at 08:40:32 AM) Current smoker F17.200 (ICD-10-CM ) 10/01 Active 03/26 Miguelina Shelley MA Nicotine dependence, unspecified, uncomplicated Imported from [facility] (26-Mar-20 at 08:40:32 AM) Chronic neck pain M54.2 (ICD-10-CM ) 03/04 Active 03/26 Miguelina Shelley MA Cervicalgia Imported from [facility] (26-Mar-20 at 08:40:32 AM) Chronic anticoagulati on Z79.01 (ICD-10-CM ) 10/18 Active 03/26 Miguelina Shelley MA group home (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 Imported from [facility] (26-Mar-20 at 08:40:32 AM) Bilateral leg edema R60.0 (ICD-10-CM ) 10/18 Active 03/26 Miguelina Shelley MA Localized edema Imported from [facility]: [facility] (26-Mar-20 at 08:40:32 AM) Atrial fibrillation, persistent I48.19 (ICD-10-CM ) 01/20 Active 03/26 Miguelina Shelley MA Other persistent atrial fibrillation Imported from [facility]: [facility] (26-Mar-20 at 08:40:32 AM) Anxiety 03676536 (SNOMED CT) 09/13 Active 03/26 Miguelina Shelley MA Anxiety Imported from [facility]: [facility] (26-Mar-20 at 08:40:32 AM) LUMBAR DISC HERNIATION WITH RADICULOPATHY 227509752 (SNOMED CT) 03/27 Active 03/27 Shyanne PAYTONC Lumbar disc prolapse with radiculopathy SPONDYLOSIS, LUMBAR, WITH RADICULOPATHY 201081962 (SNOMED CT) 03/27 Active 03/27 Shyanne INIGUEZ-C Lumbosacral spondylosis with radiculopathy LOWER BACK PAIN 415711442 (SNOMED CT) 03/27 Active 03/27 Shyanne INIGUEZ-C Low back pain LUMBAR RADICULOPATHY 350296859 (SNOMED CT) 03/27 Active 03/27 Shyanne INIGUEZ-C Lumbar radiculopathy LUMBAR STENOSIS, L1-L5, W/O NEUROGENIC CLAUDICATION M48.061 (ICD-10-CM ) 02/27 Active 02/27 Melani Coppola MA Spinal stenosis, lumbar region without neurogenic claudication Mixed hyperlipidemi a 307777978 (SNOMED CT) 10/22 Active 02/27 Melani Coppola MA Mixed hyperlipidemia Imported from [facility]: AdVolume (28-Feb-20 at 01:21:17 PM) Controlled type 2 diabetes mellitus without complication, without long-term current use of insulin E11.9 (ICD-10-CM ) 10/22 Active 02/27 Melani Coppola SHERIF Type 2 diabetes mellitus without complications Imported from [facility]: AdVolume (28-Feb-20 at 01:21:17 PM) CKD (chronic kidney disease), symptom management only, stage 2 (mild) N18.2 (ICD-10-CM ) 03/31 Active 02/27 Melani Coppola MA Chronic kidney disease, stage 2 (mild) Imported from [facility]: [facility] (28-Feb-20 at 01:21:17 PM) Chronic obstructive pulmonary disease 06625574 (SNOMED CT) 03/31 Active 02/27 Melani Coppola MA Chronic obstructive pulmonary disease Imported from [facility]: [facility] (28-Feb-20 at 01:21:17 PM) Medications Medication Instructions Start Date Stop Date Generic Name NDC Provider METHOCARBAMOL 750 MG TABS 03/29 methocarbamol [id number] Joann Brown REGULATORY AFFAIRS DIRECTOR METHOCARBAMOL 750 MG TABS Take 1 tablet by mouth twice a day as needed muscle spasms 1 tablet TID PRN muscle spasms methocarbamol 14670161430 Joann Brown REGULATORY AFFAIRS DIRECTOR Tylenol 325 mg capsule acetaminophen 28927674860 Miguelina Shelley MA METFORMIN HCL 500 MG TABS 1 po tid 03/29 metformin 95727194008 Miguelina Shelley MA FENOFIBRATE 160 MG TABS TAKE ONE TABLET BY MOUTH DAILY 03/29 fenofibrate 29033728644 Miguelina Shelley MA PRAMIPEXOLE DIHYDROCHLORIDE 0.125 MG TABS Take 0.125 mg by mouth 3 (three) times daily. 03/29 pramipexole 27969676899 Miguelina Shelley MA LISINOPRIL 40 MG TABS TAKE ONE TABLET BY MOUTH DAILY 03/29 lisinopril 64761232806 Miguelina Shelley MA OXYBUTYNIN CHLORIDE ER 15 MG [id number] 1 po qd 03/29 oxybutynin chloride 91069784975 Miguelina Shelley MA LIDOCAINE 5 % PTCH 1 patch by Transdermal route every 12 (twelve) hours. 03/29 lidocaine 36734803581 Miguelina Shelley MA Psyllium (METAMUCIL FIBER PO) Take by mouth daily. 03/29 METAMUCIL FIBER PO Miguelina Shelley MA OMEPRAZOLE 40 MG CPDR Take 1 capsule by mouth daily. 03/29 omeprazole 84279253438 Miguelina Shelley MA FLUOCINONIDE 0.05 % CREA APPLY SPARINGLY TWO OR THREE TIMES DAILY NEEDED 03/29 fluocinonide 83539672605 Miguelina Shelley MA FREESTYLE JERI 3 SENSOR blood-glucose sensor 23750245431 Miguelina Shelley MA ONETOUCH DELICA PLUS [id number] lancets 56611388536 Miguelina Shelley MA METOPROLOL TARTRATE 25 MG TABS metoprolol tartrate 52693697673 Miguelina Shelley MA ELIQUIS 5 MG TABS apixaban 89415525407 C hrkyle Shelley MA INVOKANA 100 MG TABS canagliflozin 63219976543 Miguelina Shelley MA BD PEN NEEDLE MINI U/F 31G X 5 MM pen needle, diabetic 10069095592 Miguelina Shelley MA ROSUVASTATIN CALCIUM 5 MG TABS rosuvastatin 66293393681 Vance Shelley MA CARBIDOPA-LEVODOP A 25-100 MG TABS carbidopa-levod op a 11840104751 Miguelina Shelley MA LORAZEPAM 1 MG TABS lorazepam 01186566086 Miguelina Shelley MA MECLIZINE HCL 25 MG TABS meclizine 98317194931 Miguelina Shelley MA ONETOUCH ULTRA TEST STRP blood sugar diagnostic 81912677187 Miguelina Shelley MA CEPHALEXIN 250 MG CAPS cephalexin 85611526733 Miguelina Shelley MA FUROSEMIDE 40 MG TABS furosemide 26658742578 Miguelina Shelley MA BD SWAB SINGLE USE REGULAR PADS alcohol swabs 03974547146 Vance Shelley MA OXYCODONE HCL 5 MG TABS oxycodone 70380885324 Miguelina Shelley MA TORSEMIDE 20 MG TABS torsemide 08578903134 Miguelina Shelley MA PRAMIPEXOLE DIHYDROCHLORIDE 0.25 MG TABS pramipexole 76337924987 Miguelina Shelley MA LISINOPRIL 40 MG TABS lisinopril 66880964378 Miguelina Shelley MA METHOCARBAMOL 750 MG TABS 03/29 methocarbamol 78029618554 Miguelina Shelley MA PANTOPRAZOLE SODIUM 20 MG TBEC pantoprazole 20145471777 Chri robert Shelley MA PREGABALIN 100 MG CAPS Take 1 capsule by mouth 2 (two) times daily for 30 days. 04/15 pregabalin (LYRICA) 100 MG CAPS 35255705221 Melani Coppola MA OXYCODONE-ACETAMI NOPHEN 10-325 MG TABS 1 po bid prn 04/02 oxycodone-acetami nophen (PERCOCET) 10-325 MG TABS 31411339649 Melani Coppola MA APIXABAN (ELIQUIS) 5 MG TABS Take 1 tablet by mouth 2 (two) times daily for 30 days. 04/05 apixaban (ELIQUIS) 5 mg TABS Melani Coppola MA ALBUTEROL SULFATE HFA 108 (90 Base) MCG/ACT AERS Use 2 puffs every 6 (six) hours as needed. 03/27 albuterol 108 (90 Base) mcg/puff AERS 62322603795 Melani Coppola MA ESCITALOPRAM OXALATE 10 MG TABS TAKE ONE TABLET BY MOUTH EVERY EVENING 03/27 escitalopram (LEXAPRO) 10 MG TABS 39603698141 Melani Coppola MA CYCLOBENZAPRINE HCL 10 MG TABS Take 1 tablet by mouth 3 (three) times daily as needed (back pain). 03/27 cyclobenzaprine (FLEXERIL) 10 MG TABS 41605759795 Melani Coppola MA CARBIDOPA-LEVODOP A 25-100 MG TABS Take 1 tablet by mouth 3 (three) times daily. 03/27 carbidopa-levodop a (SINEMET) 25-100 MG TABS 49585253314 Melani Coppola MA ATENOLOL-CHLORTHA LIDONE 50-25 MG TABS TAKE ONE TABLET BY MOUTH DAILY 03/27 atenolol-chlortha lidone 50-25 MG TABS 09221373090 Melani Coppola MA ASPIRIN 81 MG TBEC Take 81 mg by mouth daily. 03/27 aspirin 81 MG TBEC 65959638209 Melani Coppola MA AMLODIPINE BESYLATE 10 MG TABS TAKE ONE TABLET BY MOUTH DAILY 03/27 amlodipine (NORVASC) 10 MG TABS 48662198028 Melani Coppola MA PREGABALIN 100 MG CAPS Take 1 capsule by mouth 2 (two) times daily for 30 days. 04/15 pregabalin (LYRICA) 100 MG CAPS 53308375352 Jyothi Crum OXYCODONE-ACETAMI NOPHEN 10-325 MG TABS 1 po bid prn 04/02 oxycodone-acetami nophen (PERCOCET) 10-325 MG TABS 67333952696 Jyothi Crum apixaban (ELIQUIS) 5 mg TABS Take 1 tablet by mouth 2 (two) times daily for 30 days. 04/05 apixaban (ELIQUIS) 5 mg TABS Jyothi Crum ALBUTEROL SULFATE HFA 108 (90 Base) MCG/ACT AERS Use 2 puffs every 6 (six) hours as needed. 03/27 albuterol 108 (90 Base) mcg/puff AERS 45840172764 Jyothi Crum Psyllium (METAMUCIL FIBER PO) Take by mouth daily. 03/29 Psyllium (METAMUCIL FIBER PO) Melani Coppola MA PREDNISONE 10 MG TABS Take 4 tablets by mouth daily for 2 days, THEN 3 tablets daily for 2 days, THEN 2 tablets daily for 2 days, THEN 1 tablet daily for 2 days. 02/28 predniSONE (DELTASONE) 10 MG TABS 66155115727 Melani Coppola MA PRAMIPEXOLE DIHYDROCHLORIDE 0.125 MG TABS Take 0.125 mg by mouth 3 (three) times daily. 03/29 pramipexole (MIRAPEX) 0.125 MG TABS 58211416892 Melani Coppola MA OXYBUTYNIN CHLORIDE ER 15 MG [id number] 1 po qd 03/29 oxybutynin 15 MG TB24 84916419566 Melani Coppola MA OMEPRAZOLE 40 MG CPDR Take 1 capsule by mouth daily. 03/29 omeprazole (PRILOSEC) 40 MG CPDR 38492464042 Melani Coppola MA METFORMIN HCL 500 MG TABS 1 po tid 03/29 metFORMIN (GLUCOPHAGE) 500 MG TABS 78169507436 Melani Coppola MA LISINOPRIL 40 MG TABS TAKE ONE TABLET BY MOUTH DAILY 03/29 lisinopril (PRINIVIL,ZESTRIL ) 40 MG TABS 52217113087 Melani Coppola MA LIDOCAINE 5 % PTCH 1 patch by Transdermal route every 12 (twelve) hours. 03/29 lidocaine (LIDODERM) 5 % PTCH 77672728177 Melani Coppola MA FLUOCINONIDE 0.05 % CREA APPLY SPARINGLY TWO OR THREE TIMES DAILY NEEDED 03/29 fluocinonide (LIDEX) 0.05 % CREA 21638705877 Melani Coppola MA FENOFIBRATE 160 MG TABS TAKE ONE TABLET BY MOUTH DAILY 03/29 fenofibrate (LOFIBRA) 160 MG TABS 55541307625 Melani Coppola MA ESCITALOPRAM OXALATE 10 MG TABS TAKE ONE TABLET BY MOUTH EVERY EVENING 03/27 escitalopram (LEXAPRO) 10 MG TABS 08725166963 Melani Coppola MA CYCLOBENZAPRINE HCL 10 MG TABS Take 1 tablet by mouth 3 (three) times daily as needed (back pain). 03/27 cyclobenzaprine (FLEXERIL) 10 MG TABS 05341559553 Melani Coppola MA CARBIDOPA-LEVODOP A 25-100 MG TABS Take 1 tablet by mouth 3 (three) times daily. 03/27 carbidopa-levodop a (SINEMET) 25-100 MG TABS 95246089099 Melani Coppola MA ATENOLOL-CHLORTHA LIDONE 50-25 MG TABS TAKE ONE TABLET BY MOUTH DAILY 03/27 atenolol-chlortha lidone 50-25 MG TABS 62435510684 Melani Coppola MA ASPIRIN 81 MG TBEC Take 81 mg by mouth daily. 02/28 aspirin 81 MG TBEC 29320680423 Melani Coppola MA AMLODIPINE BESYLATE 10 MG TABS TAKE ONE TABLET BY MOUTH DAILY 03/27 amlodipine (NORVASC) 10 MG TABS 40713280644 Melani Coppola MA Medications Administered No information [...] Procedures Code Procedure Name Date Entry Date [id number] Tobacco Cessation Counseling Performed 2 Vital Signs Date Name Value Unit Description BMI (Body Mass Index) 38.83 kg/m2 Bod y Mass Index (Ratio) Height 69 [in_us] height E&M Weight Measured 263 [lb_av] weight E& M Weight Measured 263 [lb_av] weight E& M Immunizations No information available. Advance Directives No information available.
--- OUTSIDE RECORDS SUMMARY | 2025-06-21 18:37 | XMS_ITS | Encounter Summary ---
Author Organization [facility] Address [address] [place] [address] [place] [address] Phone Care Team Providers Care Health Promoter Name Role Phone Sofia Bruner MD Primary Care Provider Reason for Visit * Reason Comments Refill Request Encounter Details Date Type Department Care Team (Late st Contact Info) Description 03/23/2025 Refill [facility] [address] [place] [address] Munir Bailey MD [address] [place] [address] Social History Tobacco Use Types [...] 1:59 PM EST) Sofia Abbott MD Note: [email or web address] Patient has no barriers to completing goals [...] documented as of this encounter Care Teams Health Promoter Relationship Specialty Start Date End Date Sofia Bruner MD PCP - General Family Medicine 10/24/12 documented as of this encounter
--- OUTSIDE RECORDS SUMMARY | 2025-06-21 18:37 | XMS_ITS | Encounter Summary ---
Author Organization [facility] Address [address] [place] [address] Phone Care Team Providers Care Card Filer Name Role Phone Sofia Bruner MD Primary Care Provider Reason for Visit * Reason Comments Refill Request Encounter Details Date Type Department Care Team (Late st Contact Info) Description 01/17/2025 Refill [facility] [address] [place] [address] Sofia Bruner MD [address] [place] [address] Social History Tobacco Use Types [...] PM EST) No Sofia Bruner MD Note: [email or web address] Patient has no barriers to completing goals [...] documented as of this encounter Care Teams Card Filer Relationship Specialty Start Date End Date Sofia Bruner MD PCP - General Family Medicine 10/24/12 documented as of this encounter
--- OUTSIDE RECORDS SUMMARY | 2025-06-21 18:38 | XMS_ITS ---
Author Organization [facility] Address [address] [place] [address] Phone Care Team Providers Care Materials Recycler Name Role Phone Sofia Bruner MD Primary [...]
--- OUTSIDE RECORDS SUMMARY | 2025-06-21 18:38 | XMS_ITS | Encounter Summary ---
Author Organization [facility] Address [facility] [place] [address] Phone Care Team Providers Care Rehab Therapy Manager Name Role Phone Sofia Brnuer MD Primary Care Provider Sofia Bruner MD Unavailable + [phone] Nancy Garibay Unavailable Unavailable Sofia Bruner MD Unavailable + [phone] Dima Crenshaw Registered Nurse Unavailable U navailable Encounter Details Date Type Department Care Team ([facility] st Contact Info) Description 06/18/2022 Collaborative Link Encounter [facility] [address] [place], [place] [id number] Social History Tobacco Use Types Packs/Day Years [...] exam ??? please have them contact their traffic analyst to schedule. Ifpatient does not have traffic analyst, have them contact I to schedule at [phone]. If patient has completed diabetic eye exam, please obtain provider/facility information and send telephone encounter with information to [facility]. documented in this encounter Plan [...] 1:59 PM EST) Sofia Abbott MD Note: [email or web address] Patient has no barriers to completing goals [...] documented as of this encounter Care Teams Rehab Therapy Manager Relationship Specialty Start Date End Date Sofia Bruner MD PCP - General Family Medicine 10/24/12 Sofia Bruner MD [address] [place] [address] PCP - Madhu GORMAN Attributed Physician 02/06/21 01/06/24 Sofia Bruner MD [address] [place] [address] PCP - Krish GORMAN Attributed Physician 02/07/24 09/07/24 Nancy Garibay Civil Technician Complex Care Management 09/18/23 01/05/24 Dima Crenshaw, Registered Nurse Registered Nurse 07/12/24 07/13/24 documented as of this encounter
--- OUTSIDE RECORDS SUMMARY | 2025-06-21 18:38 | XMS_ITS | Encounter Summary ---
Author Organization [facility] Address [facility] [place] [address] Phone Care Team Providers Care Filling And Packing Supervisor Name Role Phone Sofia Bruner MD Primary Care Provider Sofia Bruner MD Unavailable + [phone] Dima Crenshaw Registered Nurse Unavailable U navailable [...] pelvis (HCC) Asymptomatic microscopic hematuria Primary hypertension Procedures CT CHEST WO CONTRAST Sae Arthur MD Phone: tel: fax: Referral ID Status Reason Start Date Expiration Date V isits Requested Visits Authorized [id number] Closed Specialty Services Required 03/09/2024 03/09/2025 1 1 Encounter Details Date Type Department Care Team (Late st Contact Info) Description 03/09/2024 [facility] Only [facility] [address] [place] [address] [place] [address] [place], [place] [id number] Other specified disorders of kidney and ureter (Primary Dx); Urge incontinence; Stress incontinence, male; Personal history of other malignant neoplasm of kidney; Diabetes mellitus without complication; Malignant neoplasm of right kidney, except renal pelvis; Asymptomatic microscopic hematuria; Primary hypertension Social History [...] renal pelvis Asymptomatic microscopic hematuria Primary hypertension Expected: 03/09/2024, [...] 1:59 PM EST) Sofia Abbott MD Note: [email or web address] Patient has no barriers to completing goals [...] of kidney Diabetes mellitus without complication (HCC) Type II or unspecified type diabetes mellitus without mention of complication, not stated as uncontrolled Malignant neoplasm of right kidney, except renal pelvis (HCC) Malignant neoplasm of kidney, except pelvis Asymptomatic microscopic hematuria Primary hypertension Unspecified essential hypertension documented in this encounter Additional Health Concerns Assessment Noted Time PHQ-9 Depression Total Score: 2 09/18/19 24 12:35 PM EST PHQ-2 Depression Total Score: 0 12/29/19 24 4:17 PM EDT documented as of this encounter Care Teams Filling And Packing Supervisor Relationship Specialty Start Date End Date Sofia Bruner MD PCP - General Family Medicine 10/24/12 Sofia Bruner MD [address] [place] [address] PCP - Krish GORMAN Attributed Physician 02/07/24 09/07/24 Dima Crenshaw, Registered Nurse Registered Nurse 07/12/24 07/13/24 documented as of this encounter
--- OUTSIDE RECORDS SUMMARY | 2025-06-21 18:38 | XMS_ITS | Clinical Summary ---
Author Organization [facility] Address [address] [place] [address] Care Team Providers Care Continuous Towel Roller Name Role Phone Devante Foster MD Primary Care Provider [phone] Allergies Active Allergy Reactions Criticality Noted Date Comments Peanut-Containing Drug Products Unknown - Patient states they do not know rxn details Medium 06/20/2025 Medications albuterol 108 (90 Base) MCG/ACT inhaler Active aspirin 81 MG EC tablet Take 1 tablet by mouth daily. Active carbidopa-levodopa (Sinemet) 25-100 MG tablet Take 1 tablet by mouth 3 times a day. Active clopidogrel (Plavix) 75 MG tablet Take 1 tablet by mouth daily. Active insulin aspart (NovoLOG) 100 UNIT/ML injection vial Inject 10 Units under the skin 3 times a day before meals. Active insulin glargine (Lantus) 100 UNIT/ML injection vial Inject 5 Units under the skin nightly. Active LISINOPRIL PO Take by mouth. Active LORazepam (Ativan) 1 MG tablet Take 1 tablet by mouth every 8 hours as needed for anxiety. Active MECLIZINE HCL PO Take by mouth. Active METOPROLOL TARTRATE PO Take by mouth. Active PANTOPRAZOLE SODIUM PO Take by mouth. Active PRAMIPEXOLE DIHYDROCHLORIDE PO Take by mouth 2 times a day. Active ROSUVASTATIN CALCIUM PO Take by mouth. Active TORSEMIDE PO Take by mouth daily. Active dapagliflozin (Farxiga) 10 MG tablet Take 1 tablet by mouth daily. Active CANAGLIFLOZIN PO Take by mouth. 025 Discontinued Social History Tobacco Use Types Packs/Day Years Used Date Smoking Tobacco: Every Day Cigarettes Tobacco Cessation:Ready to Q uit: Not Asked; Counseling Given: Not Answered Alcohol Use Standard Drinks/Week Comments Never 0 (1 standard drink = 0.6 oz pur e alcohol) Sex and Gender Information Value Date Recorded Sex Assigned at Not on file Legal Sex Male 1:52 PM EDT Gender Identity Not on file Sexual Orientation Not on file Plan of Treatment Upcoming Encounters Date Type Department Care Team (Late st Contact Info) Description 06/24/2025 12:20 PM EDT Office Visit [facility] [address] [place] [address] Bar Seals MD [address] [place] [address] Health Maintenance Due Date Last Done Comments [facility]-Depression Screening 1956 [facility]-Hepatitis C Screening 1956 [facility]-Infant/Child/Adol SDOH Screenings 1956 [facility]- SDOH Screenings 1974 [facility]-Adult SDOH Screenings 1974 [facility]-DTaP,Tdap,and Td Vaccine s (1 - Tdap) 1975 [facility]-Pneumococcal Vaccine: 50 + Years (1 of 2 - PCV) 1975 CT Colonography 2001 Colonoscopy 2001 FIT-DNA 2001 FIT 2001 FOBT 2001 Sigmoidoscopy 2001 [facility]-Colorectal Cancer Screening 2001 [facility]-Zoster Vaccines (1 of 2) 2006 [facility]-Abdominal Aortic Aneurys m (AAA) Screening 2021 NOS-YMCFG-12 Vaccine (1 - 20 24-25 season) 2025 [facility]-Influenza Vaccine (#1) 2025 [facility]-RSV Vaccine: 60+ [...] patient's age to complete this topic Insurance Care Teams Continuous Towel Roller Relationship Specialty Start Date End Date Devante Foster MD [facility] [place] [address] PCP - General 06/20/25
--- OUTSIDE RECORDS SUMMARY | 2025-06-21 18:38 | XMS_ITS | Encounter Summary ---
Author Organization [facility] Address [facility] [place] [address] Phone Care Team Providers Care Manager Laboratory Name Role Phone Sofia Bruner MD Primary Care Provider Sofia Bruner MD Unavailable + [phone] Nancy Garibay Unavailable Unavailable Sofia Bruner MD Unavailable + [phone] Dima Crenshaw Registered Nurse Unavailable U navailable Reason for Referral * MRI/CAT Scan (Routine) - Closed Specialty Diagnoses / Procedures Referred By Contsigrid shahid Referred To Contact Radiology Diagnoses Urge incontinence Hypertension, essential History of malignant neoplasm of kidney excluding renal pelvis Diabetes mellitus without complication (HCC) Stress incontinence, male Other specified disorders of kidney and ureter Asymptomatic microscopic hematuria Malignant neoplasm of right kidney, except renal pelvis (HCC) Procedures CT ABDOMEN WO CONTRAST Sae Arthur MD Phone: tel: fax: Referral ID Status Reason Start Date Expiration Date V isits Requested Visits Authorized [id number] Closed Specialty Services Required 12/15/2023 03/13/2024 1 [...] of right kidney, except renal pelvis (HCC) Procedures CT CHEST WO CONTRAST Sae Arthur MD Phone: tel: fax: Referral ID Status Reason Start Date Expiration Date V isits Requested Visits Authorized [id number] Closed Specialty Services Required 12/15/2023 03/13/2024 0 0 Encounter Details Date Type Department Care Team (Late st Contact Info) Description 12/12/2023 Orders Only [facility] Central Scheduling [address] [place] [address] [place] [address] [place] [address] Urge incontinence (Primary Dx); Hypertension, essential; History of malignant neoplasm of kidney excluding renal pelvis; Diabetes mellitus without complication; Female stress incontinence; Stress incontinence, male; Other specified disorders of kidney and ureter; Asymptomatic microscopic hematuria; Malignant neoplasm of right kidney, except renal pelvis Social History Tobacco Use Types Packs/Day Years [...] Entry Date Author No 10/19/2023 11:00 AM Geogrie Paige Registered Nurse documented in this encounter [...] 1:59 PM EST) Sofia Abbott MD Note: [email or web address] Patient has no barriers to completing goals [...] the content of this report, please contact [employer] radiology by calling [phone] FINDINGS: LOWER CHEST: Described on concurrent chest [...] about the content of this report, pleasecontact [employer] radiology by calling [phone] FINDINGS: LOWER CHEST: Described on concurrent chest [...] documented transmission to the ordering physician per [facility] Radiology department protocol Narrative 12/31/2023 6:03 PM [...] the content of this report, please contact [facility] radiology by calling [phone] FINDINGS: LUNGS/AIRWAYS: Upper lobe predominant centrilobular groundglass [...] about the content of this report, pleasecontact [facility] radiology by calling [phone] FINDINGS: LUNGS/AIRWAYS: Upper lobe predominant centrilobular groundglass [...] for documented transmission to the ordering physicianper [facility] Radiology department protocol Sae Arthur MD CT [...] (HCC) Malignant neoplasm of kidney, except pelvis Urge [...] (HCC) Malignant neoplasm of kidney, except pelvis documented in this encounter Additional Health Concerns Assessment Noted Time PHQ-9 Depression Total Score: 2 09/18/19 12:35 PM EST PHQ-2 Depression Total Score: 2 09/18/19 12:35 PM EST documented as of this encounter Care Teams Manager Laboratory Relationship Specialty Start Date End Date Sofia Bruner MD PCP - General Family Medicine 10/24/12 Sofai Bruner MD [address] [place] [address] PCP - Madhu GORMAN Attributed Physician 02/06/21 01/06/24 Sofia Bruner MD [address] [place] [address] PCP - Krish GORMAN Attributed Physician 02/07/24 09/07/24 Nancy Garibay Industrial Robotics Mechanic Complex Care Management 09/18/23 01/05/24 Dima Crenshaw, Registered Nurse Registered Nurse 07/12/24 07/13/24 documented as of this encounter
--- OUTSIDE RECORDS SUMMARY | 2025-06-21 18:38 | XMS_ITS | Encounter Summary ---
Author Organization [facility] SBO AND TP P Address [facility] [place] [address] Phone Care Team Providers Care Value Stream Manager Name Role Phone Sofia Bruner MD Primary Care Provider Reason for Visit * Reason Onset Date Comments Follow-up 04/28/2025 Encounter Details Date Type Department Care Team (Late st Contact Info) Description 04/28/2025 Telephone [facility] [place] [facility] [address] [place] [address] Carolyn Jansen Registered Nurse Social [...] Miscellaneous Notes * Telephone Encounter - Carolyn Jansen Registered Nurse - 04/28/2025 4:16 PM EDT Called and left a message regarding reviewing his medications, and to make sure he has stopped taking Plavix. Left a message with direct contact information. documented in this encounter Plan of Treatment [...] 1:59 PM EST) Sofia Abbott MD Note: [email or web address] Patient has no barriers to completing goals [...] documented as of this encounter Care Teams Value Stream Manager Relationship Specialty Start Date End Date Sofia Bruner MD PCP - General Family Medicine 10/24/12 documented as of this encounter
--- OUTSIDE RECORDS SUMMARY | 2025-06-21 18:38 | XMS_ITS | Encounter Summary ---
Author Organization [facility] SBO AND TP P Address [facility] [address] [place] [address] Phone Care Team Providers Care Account Processor Name Role Phone Sofia Bruner MD Primary Care Provider Reason for Visit * Reason Comments Refill Request Encounter Details Date Type Department Care Team (Late st Contact Info) Description 05/05/2025 Refill [facility] - [facility] [address] [place] [address] Sofia Bruner MD [address] [place] [address] Social History Tobacco Use Types [...] 8:46 AM EDT Tanihsa Ruiz, Registered Nurse * Do you have [...] * Telephone Encounter - Brenda Santana - 05/05/2025 10:11 AM EDT LAST OV 06/29/24 NEXT OV not [...] PM EST) No Sofia Bruner MD Note: [email or web address] Patient has no barriers to completing goals [...] documented as of this encounter Care Teams Account Processor Relationship Specialty Start Date End Date Sofia Bruner MD PCP - General Family Medicine 10/24/12 documented as of this encounter
--- OUTSIDE RECORDS SUMMARY | 2025-06-21 18:38 | XMS_ITS | Encounter Summary ---
Author Organization [facility] SBO AND TP P Address [address] [place] [address] [place] [address] Phone Care Team Providers Care Avionics Supervisor Name Role Phone Sofia Bruner MD Primary Care Provider Sofia Bruner MD Unavailable + [phone] Dima Crenshaw Registered Nurse Unavailable U navailable Encounter Details Date Type Department Care Team (Late st Contact Info) Description 06/21/2024 Collaborative Link Encounter [facility] [address] [place] [address] Social History Tobacco Use Types Packs/Day Years [...] Not on track( 1:59 PM EST) Sofia Abobtt MD Note: [email or web address] Patient has no barriers to completing goals [...] documented as of this encounter Care Teams Avionics Supervisor Relationship Specialty Start Date End Date Sofia Bruner MD PCP - General Family Medicine 10/24/12 Sofia Bruner MD [address] [place] [address] PCP - Krish GORMAN Attributed Physician 02/07/24 09/07/24 Dima Crenshaw, Registered Nurse Registered Nurse 07/12/24 07/13/24 documented as of this encounter
--- OUTSIDE RECORDS SUMMARY | 2025-06-21 18:38 | XMS_ITS | Encounter Summary ---
Author Organization [facility] SBO AND TP P [facility] [place] [address] Phone Care Team Providers Care Clinic Office Assistant Name Role Phone Sofia Bruner MD Primary Care Provider Reason for Visit * Reason Comments Refill Request Encounter Details Date Type Department Care Team (Late st Contact Info) Description 01/05/2025 Refill [facility] - [facility] [address] [place] [address] Faisal Olvera MD [address] [place] [address] Social History Tobacco Use Types Packs/Day Years [...] 1:59 PM EST) Sofia Abbott MD Note: [email or web address] Patient has no barriers to completing goals [...] documented as of this encounter Care Teams Clinic Office Assistant Relationship Specialty Start Date End Date Sofia Bruner MD PCP - General Family Medicine 10/24/12 documented as of this encounter
--- OUTSIDE RECORDS SUMMARY | 2025-06-21 18:38 | XMS_ITS | Encounter Summary ---
Author Organization [facility] SBO AND TP P Address [facility] [address] Phone Care Team Providers Care Dental Surgeon Name Role Phone Sofia Bruner MD Primary Care Provider Sofia Bruner MD Unavailable + [phone] Nancy Garibay Unavailable Unavailable Sofia Bruner MD Unavailable + [phone] Dima Crenshaw Registered Nurse Unavailable U navailable Encounter Details Date Type Department Care Team ([facility] st Contact Info) Description 08/08/2023 Collaborative Link Encounter [facility] [address] [place], [place] [id number] Social History Tobacco Use Types Packs/Day Years [...] Left voicemail advising patient to return call. TranslateMedia message sent to patient. Patient is due for diabetic eye exam ??? please have them contact their leveler to schedule. Ifpatient does not have leveler, have them contact [facility] to schedule at [phone]. If patient has completed diabetic eye exam, please obtain provider/facility information and send telephone encounter with information to P Care [facility]. documented in this encounter Plan of Treatment [...] 1:59 PM EST) Sofia Abbott MD Note: [email or web address] Patient has no barriers to completing goals [...] documented as of this encounter Care Teams Dental Surgeon Relationship Specialty Start Date End Date Sofia Bruner MD PCP - General Family Medicine 10/24/12 Sofia Bruner MD [address] [place] [address] PCP - Madhu GORMAN Attributed Physician 02/06/21 01/06/24 Sofia Bruner MD [address] [place] [address] PCP - Krish GORMAN Attributed Physician 02/07/24 09/07/24 Nancy Garibay Marketing Communications Leader Complex Care Management 09/18/23 01/05/24 Dima Crenshaw, Registered Nurse Registered Nurse 07/12/24 07/13/24 documented as of this encounter
--- OUTSIDE RECORDS SUMMARY | 2025-06-21 18:38 | XMS_ITS | Encounter Summary ---
Author Organization [facility] SBO AND TP P Address [facility] [place] [address] Phone Care Team Providers Care Chief Enterprise Architect Name Role Phone Sofia Bruner MD Primary Care Provider Sofia Bruner MD Unavailable + [phone] Nancy Garibay Unavailable Unavailable Sofia Bruner MD Unavailable + [phone] Dima Crenshaw Registered Nurse Unavailable U navailable Encounter Details Date Type Department Care Team ([facility] st Contact Info) Description 06/27/2022 Collaborative Link Encounter [facility] [address] [place] [phone] Social History Tobacco Use Types Packs/Day Years [...] exam ??? please have them contact their private detective to schedule. Ifpatient does not have private detective, have them contact I to schedule at [phone]. If patient has completed diabetic eye exam, please obtain provider/facility information and send telephone encounter with information to P Care [facility]. documented in this encounter [...] 1:59 PM EST) Sofia Abbott MD Note: [email or web address] Patient has no barriers to completing goals [...] documented as of this encounter Care Teams Chief Enterprise Architect Relationship Specialty Start Date End Date Sofia Bruner MD PCP - General Family Medicine 10/24/12 Sofia Bruner MD [address] [place] [address] PCP - Madhu GORMAN Attributed Physician 02/06/21 01/06/24 Sofia Bruner MD [address] [place] [address] PCP - Krish GORMAN Attributed Physician 02/07/24 09/07/24 Nancy Garibay Wire Strander Complex Care Management 09/18/23 01/05/24 Dima Crenshaw, Registered Nurse Registered Nurse 07/12/24 07/13/24 documented as of this encounter
--- OUTSIDE RECORDS SUMMARY | 2025-06-21 18:38 | XMS_ITS | Encounter Summary ---
Author Organization [facility] SBO AND TP P Address [facility] [place] [address] Phone Care Team Providers Care Admissions Assistant Name Role Phone Sofia Bruner MD Primary Care Provider Sofia Bruner MD Unavailable [phone] Lyla Nieves Registered Nurse Unavailable U navailable Sofia Bruner MD Unavailable [phone] Nancy Garibay Unavailable Unavailable Sofia Bruner MD Unavailable [phone] Dima Crenshaw Registered Nurse Unavailable U navailable Encounter Details Date Type Department Care Team (Late st Contact Info) Description 06/26/2020 Collaborative Link Encounter [facility] [address] [place] [address] Leoncio Mckenzie LPN Social History [...] 1:59 PM EST) Sofia Abbott MD Note: [email or web address] Patient has no barriers to completing goals [...] documented as of this encounter Care Teams Admissions Assistant Relationship Specialty Start Date End Date Sofia Bruner MD PCP - General Family Medicine 10/24/12 Sofia Bruner MD [address] [place] [address] PCP - Krish GORMAN Attributed Physician 10/09/20 01/05/21 Sofia Bruner MD [address] [place] [address] PCP - Madhu GORMAN Attributed Physician 02/06/21 01/06/24 Sofia Bruner MD [address] [place] [address] PCP - Krish GORMAN Attributed Physician 02/07/24 09/07/24 Lyla Nieves, Registered Nurse Registered Nurse Complex Care Management 02/06/21 06/25/21 Nancy Garibay Bleach Analyst Complex Care Management 09/18/23 01/05/24 Dima Crenshaw, Registered Nurse Registered Nurse 07/12/24 07/13/24 documented as of this encounter
--- OUTSIDE RECORDS SUMMARY | 2025-06-21 18:38 | XMS_ITS | Encounter Summary ---
Author Organization [facility] SBO AND TP P Address [address] [place] [address] [place] [address] Phone Care Team Providers Care Vmware Consultant Name Role Phone Sofia Bruner MD Primary Care Provider Sofia Bruner MD Unavailable + [phone] Encounter Details Date Type Department Care Team (Late st Contact Info) Description 07/26/2024 Telephone [facility] [address] [place] [address] Munir Bailey MD [address] [place] [address] Social History Tobacco Use Types [...] 1:59 PM EST) Sofia Abbott MD Note: [email or web address] Patient has no barriers to completing goals [...] documented as of this encounter Care Teams Vmware Consultant Relationship Specialty Start Date End Date Sofia Bruner MD PCP - General Family Medicine 10/24/12 Sofia Bruner MD [address] [place] [address] PCP - Krish GORMAN Attributed Physician 02/07/24 09/07/24 documented as of this encounter
--- OUTSIDE RECORDS SUMMARY | 2025-06-21 18:38 | XMS_ITS | Encounter Summary ---
Author Organization [facility] SBO AND TP P Address [facility] [place] [address] Phone Care Team Providers Care Functional Director Name Role Phone Sofia Bruner MD Primary Care Provider Sofia Bruner MD Unavailable [phone] Nancy Garibay Unavailable Unavailable Sofia Bruner MD Unavailable [phone] Dima Crenshaw Registered Nurse Unavailable U navailable Reason for Visit * Reason Comments Refill Request Encounter Details Date Type Department Care Team (Late st Contact Info) Description 05/07/2023 Refill [facility] [address] [place] [address] Sofia Bruner MD [address] [place] [address] Anxiety Social History Tobacco Use [...] AM KAROLINAT Fior Gilbert Registered Nurse * Are you blind or [...] AM EDT Fior Gilbert, Registered Nurse * Over the past 2 weeks, how often have you been bothered by any of the following problems? Question Answer Date of Assessment Author Little interest or pleasure in doing things Not at all 12/29/2023 4:17 PM EDT Jesika Petersen Feeling down, depressed, or hopeless Not at all 12/29/2023 4:17 PM EDT Jesika Petersen Patient Health Questionnaire -2 Score 0 12/29/2023 4:17 PM EDT Jesika Petersen documented as of this encounter Mental Status * Because of a physical, mental, or emotional condition, do you have serious difficulty concentrating, remembering, or making decisions? (5 years old or older) Answer Entry Date Author No 01/02/2022 9:00 AM EDT Fior Gilbert Registered Nurse documented in this encounter Plan [...] 1:59 PM EST) Sofia Abbott MD Note: [email or web address] Patient has no barriers to completing goals [...] as of this encounter Care Teams Functional Director Relationship Specialty Start Date End Date Sofia Bruner MD PCP - General Family Medicine 10/24/12 Sofia Bruner MD [address] [place] [address] PCP - Madhu GORMAN Attributed Physician 02/06/21 01/06/24 Sofia Bruner MD [address] [place] [address] PCP - Krish GORMAN Attributed Physician 02/07/24 09/07/24 Nancy Garibay Exercise Equipment Specialist Complex Care Management 09/18/23 01/05/24 Dima Crenshaw, Registered Nurse Registered Nurse 07/12/24 07/13/24 documented as of this encounter
--- OUTSIDE RECORDS SUMMARY | 2025-06-21 18:38 | XMS_ITS | Encounter Summary ---
Author Organization [facility] SBO AND TP P Address [facility] [place] [address] Phone Care Team Providers Care Utilization Review Rn Name Role Phone Sofia Brnuer MD Primary Care Provider Sofia Bruner MD Unavailable + [phone] Reason for Referral * MRI/CAT Scan (Routine) [...] Date Expiration Date Visits Requested Visits Authorized [id number] Pending Review Specialty Services Required 07/14/2024 07/14/2025 1 1 Encounter Details Date Type Department Care Team (Late st Contact Info) Description 07/14/2024 Orders Only [facility] Central Scheduling [address] [place], [place] [id number] [place] [address] [place] [phone] Malignant neoplasm of right kidney, except renal pelvis (Primary Dx); Essential (primary) hypertension; Diabetes mellitus without complication; Asymptomatic microscopic hematuria; Urge incontinence; Personal history [...] 1:59 PM EST) Sofia Abbott MD Note: [email or web address] Patient has no barriers to completing goals [...] neoplasm of right kidney, except renal pelvis (HCC)- Primary Malignant neoplasm of kidney, except pelvis Essential (primary) hypertension Unspecified essential hypertension Diabetes mellitus without complication (HCC) Type II [...] of this encounter Care Teams Utilization Review Rn Relationship Specialty Start Date End Date Sofia Bruner MD PCP - General Family Medicine 10/24/12 Sofia Bruner MD [address] [place] [address] PCP - Krish GORMAN Attributed Physician 02/07/24 09/07/24 documented as of this encounter
--- OUTSIDE RECORDS SUMMARY | 2025-06-21 18:38 | XMS_ITS | Encounter Summary ---
Author Organization [facility] SBO AND TP P Address [facility] [place] [address] Phone Care Team Providers Care Egg Factory Worker Name Role Phone Sofia Bruner MD Primary Care Provider Sofia Bruner MD Unavailable [phone] Lyla Nieves Registered Nurse Unavailable U navailable Sofia Bruner MD Unavailable [phone] Nancy Garibay Unavailable Unavailable Sofia Bruner MD Unavailable [phone] Dima Crenshaw Registered Nurse Unavailable U navailable Encounter Details Date Type Department Care Team (Late st Contact Info) Description 06/23/2020 Collaborative Link Encounter [facility] [address] [place] [address] Leoncio Mckenzie LPN Social History [...] Blood Pressure 136/82(2023 10:39 AM EST) No Sofai Bruner MD Note: [email or web address] LDL, CALCULATED < 100 Result Component 90(11/19/2023 3:36 PM EDT) No Sofia Bruner MD CREATININE < 1.3 Result Component 2.21(07/08/20 24 7:04 AM EDT) Sofia Abbott MD Exercising Regularly Self-Managemen t Not on track( 020 1:59 PM EST) Sofia Abbott MD Note: [email or web address] Patient has no barriers to completing goals [...] documented as of this encounter Care Teams Egg Factory Worker Relationship Specialty Start Date End Date Sofia Bruner MD PCP - General Family Medicine 10/24/12 Sofia Bruner MD [address] [place] [address] PCP - Krish GORMAN Attributed Physician 10/09/20 01/05/21 Sofia Bruner MD [address] [place] [address] PCP - Madhu GORMAN Attributed Physician 02/06/21 01/06/24 Sofia Bruner MD [address] [place] [address] PCP - Krish GORMAN Attributed Physician 02/07/24 09/07/24 Lyla Nieves, Registered Nurse Registered Nurse Complex Care Management 02/06/21 06/25/21 Nancy Garibay Maxillofacial Prosthodontist Complex Care Management 09/18/23 01/05/24 Dima Crenshaw, Registered Nurse Registered Nurse 07/12/24 07/13/24 documented as of this encounter
--- OUTSIDE RECORDS SUMMARY | 2025-06-21 18:38 | XMS_ITS | Encounter Summary ---
Author Organization [facility] SBO AND TP P Address [address] [place] [address] [place] [address] Phone Care Team Providers Care Local Bulk Driver Name Role Phone Sofia Bruner MD Primary Care Provider Reason for Visit * Reason Comments Refill Request Encounter Details Date Type Department Care Team (Late st Contact Info) Description 01/05/2025 Refill [facility] [address] [place] [address] Munir Bailey MD [address] [place] [address] Social History Tobacco Use Types [...] PM EST) Sofia Abbott MD Note: [email or web address] Patient has no barriers to completing goals [...] documented as of this encounter Care Teams Local Bulk Driver Relationship Specialty Start Date End Date Sofia Bruner MD PCP - General Family Medicine 10/24/12 documented as of this encounter
--- OUTSIDE RECORDS SUMMARY | 2025-06-21 18:38 | XMS_ITS | Encounter Summary ---
Author Organization [facility] Address [facility] [address] [place] [address] Phone Care Team Providers Care Food Analyst Name Role Phone Sofia Bruner MD Primary Care Provider Encounter Details Date Type Department Care Team (Late st Contact Info) Description 05/06/2025 Telephone [facility] - [facility] [address] [place] [address] Sofia Bruner MD [address] [place] [address] Type 2 diabetes mellitus with stage 3b [...] or temporarily in someone else's home (i.e. [employer]-surfing)? No 07/09/2024 Within the past 12 months, [...] encounter Miscellaneous Notes * Telephone Encounter - Shani Cronin - 05/06/2025 4:39 PM EDT Pended to sign * Telephone Encounter - David Lee MD - 05/06/2025 3:19 PM EDT USE SAME DOSE DIFFERENT MED * Telephone Encounter - NATALIA TAVAREZ - 05/06/2025 3:01 PM EDT Briget calling from [facility]. Has refill that was transferred from [facility] But insurance no longer wats to cover Novalog They do cover: Humalog Requesting new orders for medication documented in this encounter Plan of Treatment [...] 1:59 PM EST) Sofia Abbott MD Note: [email or web address] Patient has no barriers to completing goals [...] documented as of this encounter Care Teams Food Analyst Relationship Specialty Start Date End Date Sofia Bruner MD PCP - General Family Medicine 10/24/12 documented as of this encounter
--- OUTSIDE RECORDS SUMMARY | 2025-06-21 18:38 | XMS_ITS | Encounter Summary ---
Author Organization [facility] Address [facility] [place] [address] Phone Care Team Providers Care Ships Or Barges Loader Name Role Phone Sofia Bruner MD Primary Care Provider Sofia Bruner MD Unavailable [phone] Nancy Garibay Unavailable Unavailable Sofia Bruner MD Unavailable [phone] Dima Crenshaw Registered Nurse Unavailable U navailable Reason for Visit * Reason Comments Refill Request Encounter Details Date Type Department Care Team (Late st Contact Info) Description 06/01/2023 Refill [facility] [address] [place] [address] Munir Bailey MD [address] [place] [address] Social History Tobacco Use Types [...] 1:59 PM EST) Sofia Abbott MD Note: [email or web address] Patient has no barriers to completing goals [...] documented as of this encounter Care Teams Ships Or Barges Loader Relationship Specialty Start Date End Date Sofia Bruner MD PCP - General Family Medicine 10/24/12 Sofia Bruner MD [address] [place] [address] PCP - Madhu GORMAN Attributed Physician 02/06/21 01/06/24 Sofia Bruner MD [address] [place] [address] PCP - Krish GORMAN Attributed Physician 02/07/24 09/07/24 Nancy Garibay Spindle [employer] [facility] Complex Care Management 09/18/23 01/05/24 Dima Crenshaw, Registered Nurse Registered Nurse 07/12/24 07/13/24 documented as of this encounter
--- OUTSIDE RECORDS SUMMARY | 2025-06-21 18:38 | XMS_ITS | Encounter Summary ---
Author Organization [facility] Address [facility] [address] [place] [address] Phone Care Team Providers Care Security Compliance Engineer Name Role Phone Sofia Bruner MD Primary Care Provider Reason for Visit * Reason Comments Refill Request Encounter Details Date Type Department Care Team (Late st Contact Info) Description 06/09/2025 Refill [facility] - [facility] [address] [place] [address] Sofia Bruner MD [address] [place] [address] Social History Tobacco Use Types [...] 1:59 PM EST) Sofia Abbott MD Note: [email or web address] Patient has no barriers to completing goals [...] documented as of this encounter Care Teams Security Compliance Engineer Relationship Specialty Start Date End Date Sofia Bruner MD PCP - General Family Medicine 10/24/12 documented as of this encounter
--- OUTSIDE RECORDS SUMMARY | 2025-06-21 18:38 | XMS_ITS | Clinical Summary ---
Author Organization [facility] Address [address] [place] [address] Phone Care Team Providers Care Oil Gauger Name Role Phone Sofia Bruner MD [...] glucose blood (PRODIGY NO CODING BLOOD GLUC) STRPIndications: Controlled type 2 diabetes mellitus without complication, without long-term current use of insulin (HCC) Inject under the skin 3 (three) times daily. 50 each 10 4 Active Insulin Pen Needle 30G X 5 MM [facility] Use to inject insulin per insulin order instructions. 100 each 3 4 Active Glucose Blood (BLOOD GLUCOSE TEST STRIPS) STRP Check blood sugar 4 to 5 times a day (E11.22) Uncontrolled diabetes with stage 4 CKD 150 strip 11 4 Active Continuous Blood Gluc Salesperson [employer] (FREESTYLE LEONARD 3 READER) DEVIIndications: Type 2 diabetes mellitus with stage 4 chronic kidney disease, with long-term current use of insulin (HCC) Use to monitor blood sugar continuously. 1 each 4 Active acetaminophen (TYLENOL) 325 mg tablet Take 1 tablet by mouth every 4 (four) hours as needed for Mild Pain (1-3), Fever (T > 100.4 or MD spec.) or Headaches. 4 Active insulin lispro, 1 unit dial, (HUMALOG KWIKPEN) 100 unit/mL SOPN subcutaneous injection pen Up to 15 unts Sc tid before meals ( based on sliding scale ) 15 mL 5 4 Active methocarbamol (ROBAXIN) 750 MG TABS Take 1 tablet by mouth 3 (three) times daily as needed. 21 tablet 4 Active rosuvastatin (CRESTOR) 5 MG TABS Take 1 tablet by mouth daily. 90 tablet [address] (PROTONIX) 20 MG TBEC Take 1 tablet by mouth daily. 90 tablet 1 4 Active metoprolol tartrate (LOPRESSOR) 25 MG TABS Take 1 tablet by mouth 2 (two) times daily. 180 tablet 1 4 Active insulin glargine (LANTUS SOLOSTAR) 100 UNIT/ML SOPN pen 20 units SC in am 15 mL 5 4 Active lisinopril (PRINIVIL,ZESTRI L) 40 mg TABS Take 1 tablet by mouth daily. 90 tablet 1 4 Active albuterol 108 (90 Base) mcg/puff inhalerIndicatio ns:Chronic Obstructive Pulmonary Disease Use 2 puffs every 6 (six) hours as needed. Indications: Chronic Obstructive Lung Disease 18 g 5 4 Active canagliflozin (INVOKANA) 100 mg tablet Take 1 tablet by mouth daily. 1 po daily 90 tablet 1 4 Active NOVOLOG FLEXPEN 100 UNIT/ML SOPN pen Up to 15 unts Sc tid before meals ( based on sliding scale ) 15 mL 5 4 Active Respiratory Therapy Supplies (NEBULIZER/TUBIN G/MOUTHPIECE) KIT Uses 4 times a day as needed for shortness of breath, wheezing 1 kit 4 Active ipratropium-albu terol (DUONEB) 0.5-2.5 (3) MG/3ML nebulizer solution INHALE THREE MILLILITERS VIA NEBULIZATION BY MOUTH FOUR TIMES A DAY NEEDED 180 mL 1 4 Active Additional Information Patient not taking.Informant: Self, Reported on 07/26/2024 aspirin 81 mg CHEW Chew 1 tablet by mouth daily. 4 Active clopidogrel (PLAVIX) 75 mg TABS Take 1 tablet by mouth daily. 90 tablet 1 4 Active meclizine (ANTIVERT) 25 mg TABS Take 1 tablet by mouth 3 (three) times daily as needed. 90 tablet 2 4 Active LORazepam (ATIVAN) 1 mg tabletIndication s:Anxiety TAKE 1 TABLET BY MOUTH TWICE A DAY NEEDED 60 tablet 4 Active torsemide (DEMADEX) 20 MG TABS TAKE 2 TABLETS BY MOUTH DAILY 180 tablet 4 Active lancets thin misc (ONETOUCH DELICA PLUS GYDLUU31A) USE TO CHECK BLOOD SUGAR 4 TO 5 TIMES DAILY 150 lancet 11 5 Active Alcohol Swabs (ALCOHOL SWABS) 70 % pad For topical use with insulin injection up to four times a day. 200 each 5 Active FreeStyle Leonard 3 Continuous Glucose Sensor (FREESTYLE LEONARD 3 SENSOR)Indicatio ns:Type 2 diabetes mellitus with stage 4 chronic kidney disease, with long-term current use of insulin ([facility]) Change sensor every 14 days. Use to monitor blood sugar continuously. 2 each 5 Active pramipexole (MIRAPEX) 0.25 MG TABS Take 1 Tablet by mouth 3 times daily. 180 tablet 1 5 Active insulin lispro, 1 unit dial, (HUMALOG KWIKPEN) 100 unit/mL SOPN subcutaneous injection penIndications:T ype 2 diabetes mellitus with stage 3b chronic kidney disease, with long-term current use of insulin ([facility]) Up to 15 units Sc tid before meals (based on sliding scale) 15 mL 5 5 Active Active Problems Problem Noted Date Diagnosed Date [...] management only, stage 2 (mild) 03/31/2019 11/08/19 Tremor of face and hands 09/19/201712/2023 Chronic [...] Encounters Date Type Department Care Team Description 06/09/2025 [facility] [facility] [address] [place] [address] Sofia Bruner MD 05/06/2025 Telephone [facility] [address] [place] [address] Sofia Bruner MD Type 2 diabetes mellitus with stage 3b chronic kidney disease, with long-term current use of insulin (HCC) (Primary Dx) 05/05/2025 [facility] [address] [place] [address] Sofia Bruner MD 04/28/2025 Telephone [facility] [place] [facility] [address] [place] [address] Carolyn Jansen, Registered Nurse 04/06/2025 Telephone [facility] Physician [facility] [address] [place] [address] Centralized, Prior Authorization Type 2 diabetes mellitus with stage 3b chronic kidney disease, with long-term current use of insulin (HCC) (Primary Dx) 03/23/2025 Refill [facility] Physician [facility] [address] [place] [address] Sofia Bruner MD 03/23/2025 Refill [facility] [address] [place] [address] Munir Bailey MD from Last 3 Months Immunizations Immunization [...] - Risk 60-74 years 1-dose series) 2016 Cholesterol Diabetic 09/08/2024 11/19/2023, 11/19/2023, 07/21/2023, Additional history exists Foot Exam 09/08/2024 GFR 09/08/2024 07/08/2024, 05/09, 01/21/2024, Additional history exists Microalb/Creat Ratio 09/08/2024 11/19/2023, 11/10/2023, 08/12/2023, Additional history exists PSA YEARLY 11/18/2024 11/19/2023, [...] 1:59 PM EST) Sofia Abbott MD Note: [email or web address] Patient has no barriers to completing goals [...] 5 [email or web address].nih.gov Medical Devices Implanted Type Area Custom Miller Device Identifier Shelf Expiration Date Model / Serial / Lot Device Aaa Amulet 34mm - [id number] Implanted:Qty : 1 on 07/08/2024 by Bradley Hammond MD at [facility] Miscellaneous Left: Heart Specialist [employer] 09/07/2027 [id number] / / [id number] Procedures Procedure Name Priority Date/Time Associated Diagnosis [...] neoplasm of right kidney, except renal pelvis MICROALBUMIN, URINE RANDOM (INCLUDES MALB/CREAT RATIO) Routine 11/19/2023 3:36 PM EDT CKD (chronic kidney disease) stage 4, GFR 15-29 ml/min LIPID PANEL (CHOL, TRIG, HDL, LDL) Routine 11/19/2023 3:36 PM EDT Type 2 diabetes mellitus with stage 3b chronic kidney disease, with long-term current use of insulin PROSTATIC SPECIF AG-BLOOD Routine 11/19/2023 3:36 PM [...] given level of glycemic control. Tested at: [facility], [address] [place] [address] Blood 07/09/2024 5:08 AM EDT 07/09/2024 5:48 AM EDT us Tessa Ernst DO LAB BLOOD ORDERABLES Final Res ult [facility] [id number] [place] [address] [facility] [place] [address] [address] [place] [address] * (ABNORMAL) BMP (Na,K,Cl,CO2,Glu,BUN,Creat,Ca) (07/08/2024 7:04 AM EDT) BLD UREA NITROGEN 41(H) 8 - 26 mg/dL [facility] SODIUM 135 135 - 145 mmol/L [facility] POTASSIUM 3.5(L) 3.6 - 5.1 mmol/L [facility] CHLORIDE 94(L) 98 - 111 mmol/L [facility] CO2 30 21 - 31 mmol/L [facility] GLUCOSE, RANDOM 123(H) 70 - 99 mg/dL [facility] CREATININE 2.21(H) 0.70 - 1.30 mg/dL [facility] ANION GAP 11 4 - 16 mmol/L [facility] CALCIUM 8.8 8.5 - 10.4 mg/dL [facility] ESTIMATED GFR 32(L) >59 mL/min/1.7 3 m2 [facility] Comment: Estimated GFR was calculated using the CKD-EPI cr (2020) equation refit without race. The equation is recommended by the National Kidney Foundation - [place] Society of Nephrology Task Force. Tested at [facility] [id number] [place] [address] Whole Blood 07/08/2024 7:04 AM EDT 07/08/2024 7:32 AM EDT us Bradley Hammond MD LAB BLOOD ORDERABLES Final Resu lt [facility] [address] [place] [address] CHE[facility]Y [place] [address] [place] [address] * CT CHEST WO CONTRAST (12/31/2023 5:50 [...] documented transmission to the ordering physician per [facility] Radiology department protocol Narrative 12/31/2023 [...] the content of this report, please contact [facility] radiology by calling [phone] FINDINGS: LUNGS/AIRWAYS: Upper lobe predominant centrilobular groundglass [...] about the content of this report, pleasecontact [facility] radiology by calling [phone] FINDINGS: LUNGS/AIRWAYS: Upper lobe predominant centrilobular groundglass [...] for documented transmission to the ordering physicianper [facility] Radiology department protocol Sae Arthur MD CT Final Result * Prostate Specific Antigen (11/19/2023 3:36 PM EDT) Pathologist [facility] PROSTATIC SPECIF AG 0.72 <=4.00 ng/mL [facility] Comment: (NOTE) The Estel[employer] [...] inflammatory conditions of the prostate. Tested at: [place] [address] Whole Blood 11/19/2023 3:36 PM EDT 11/19/2023 3:41 PM EDT Sofia Bruner MD LAB BLOOD ORDERABLES F inal Result Performing Organization Address [facility] [place] [address] [facility] [place] [address] * (ABNORMAL) Microalbumin, Urine Random (includes MALB/Creat Ratio) (11/19/2023 3:36 PM EDT) MICROALBUMIN, UR 1,800.9 mg/L [facility] CREATININE, URINE RANDOM 46.6 mg/dL [facility] MICROALB/CREAT RATIO 3,865(H) 0 - 30 mg/g [facility] Comment:Tested at: [facility], [address] [place] [address] Urine URINE SPECIMEN / Unknown 11/19/2023 3:36 PM EDT 11/19/2023 3:41 PM EDT Ida Baird PA-C URINE ORDERABLES NO PER Final Result Performing Organization Address [facility]/ZIP Co de Phone Number [facility] [address] [place], [place] [id number] [facility] [place] [address] * (ABNORMAL) Lipid Panel (CHOL, TRIG, HDL, LDL) (11/19/2023 3:36 PM EDT) CHOLESTEROL 187 <200 mg/dL [facility] TRIGLYCERIDE 253(H) <150 mg/dL [facility] Comment: Reference Interval: Fasting <150 mg/dL Non-Fasting <175 mg/dL HDL CHOLESTEROL 46(L) >50 mg/dL [facility] LDL CHOLESTEROL (CALCULATED) 90 <130 mg/dL [facility] Comment: Interpretive Guidelines: <100 Optimal 100-129 Near Optimal 130-159 Borderline High >159 High TOTAL NON HDL CHOL 141(H) <130 mg/dL [facility] NT Comment:Tested at [place] [address] Whole Blood 11/19/2023 3:36 PM EDT 11/19/2023 3:41 PM EDT Sofia Bruner MD LAB BLOOD ORDERABLES F inal Result Performing Organization Address City/State/[facility] Co de Phone Number [facility] [address] [place] [address] [place] [address] * Colonoscopy Procedure (01/08/2022 9:30 AM EDT) Narrative Lacy Kwok MD - 01/08/2022 9:30 AM EDT Lacy Kwok MD 01/08/2022 9:32 AM Patient: Chinmay Ardon Date of : 1955 Age: [age] year old Sex: male Unit: [facility] Room/Bed: [facility]/ Location: [facility] Admitting Physician: LACY KWOK Primary [...] years Signed By: Lacy Kwok MD, 01/08/2022 us Lacy Kwok MD PROCEDURE NOTE ORDERABLES Final Result * Hepatitis C Antibody (06/08/2018 9:15 AM EDT) HEPATITIS C AB Non Reactive Non-React [facility] Comment:Tested at: [facility], [address] [place] [address] Whole blood specimen (specimen) 06/08/2018 9:15 AM EDT 06/08/2018 9:19 AM EDT us Sofia Bruner MD LAB BLOOD ORDERABLES F inal Result [facility] [address] [place] [address] [place] [address] from Last 3 Months or Most Recently Relevant to Health Maintenance Insurance DUAL COMPLETE [address] [facility] Advance Directives Documents on File Type Date Recorded Patient Sole Stainer Expl anation Advance Directives(Healthcar e Power of Horse Rancher)/Living Will/MOLST 03/16/2024 2:23 PM HCPOA Advance Directives(Healthcar e Power of Horse Rancher)/Living Will/MOLST 11/24/2023 3:51 PM HCPOA Power of Horse Rancher 03/17/2020 2:28 PM HC PO A * [...] 2:08 PM 09/15/2023 3:51 PM Care Teams Oil Gauger Relationship Specialty Start Date End Date Sofia Bruner MD PCP - General Family Medicine 10/24/12
--- OUTSIDE RECORDS SUMMARY | 2025-06-21 18:38 | XMS_ITS | Encounter Summary ---
Author Organization [facility] Address [facility] [place] [address] Phone Care Team Providers Care Extracting Machine Operator Name Role Phone Sofia Bruner MD Primary Care Provider Sofia Bruenr MD Unavailable [phone] Dima Crenshaw Registered Nurse Unavailable U navailable Encounter Details Date Type Department Care Team (Late st Contact Info) Description 01/22/2024 Orders Only [facility] Scheduling [address] [place], [place] [id number] [place] [address] [place], [place] [id number] Malignant neoplasm of right kidney, except renal pelvis (Primary Dx); Urge incontinence; Asymptomatic microscopic hematuria; Stress incontinence, male; Personal history of malignant neoplasm of kidney; Other specified disorders of kidney and ureter; Diabetes mellitus without complication; Primary hypertension Social History Tobacco Use Types [...] Author No 10/19/2023 11:00 AM Georgie Paige, Francesco Nurse * Are you blind or do [...] 1:59 PM EST) Sofia Abbott MD Note: [email or web address] Patient has no barriers to completing goals [...] kidney and ureter Diabetes mellitus without complication (HCC) Type II or unspecified type diabetes mellitus without mention of complication, not stated as uncontrolled Primary hypertension Unspecified essential hypertension documented in this encounter Additional Health Concerns Assessment Noted Time PHQ-9 Depression Total Score: 2 09/18/19 24 12:35 PM EST PHQ-2 Depression Total Score: 0 12/29/19 4:17 PM EDT documented as of this encounter Care Teams Extracting Machine Operator Relationship Specialty Start Date End Date Sofia Bruner MD PCP - General Family Medicine 10/24/12 Sofia Bruner MD [address] [place] [address] PCP - Krish GORMAN Attributed Physician 02/07/24 09/07/24 Dima Crenshaw, Registered Nurse Registered Nurse 07/12/24 07/13/24 documented as of this encounter
--- OUTSIDE RECORDS SUMMARY | 2025-06-21 18:38 | XMS_ITS | Encounter Summary ---
Author Organization [facility] Address [address] [place] [address] Phone Care Team Providers Care Noc Technician Name Role Phone Sofia Bruner MD Primary Care Provider Reason for Visit * Reason Comments Refill Request Encounter Details Date Type Department Care Team (Late st Contact Info) Description 01/05/2025 Refill [facility] - [facility] [address] [place] [address] Sofia Bruner MD [address] [place] [address] Type 2 diabetes mellitus with [...] 1:59 PM EST) Sofia Abbott MD Note: [email or web address] Patient has no barriers to completing goals [...] documented as of this encounter Care Teams Noc Technician Relationship Specialty Start Date End Date Sofia Bruner MD PCP - General Family Medicine 10/24/12 documented as of this encounter
--- OUTSIDE RECORDS SUMMARY | 2025-06-21 18:38 | XMS_ITS | Encounter Summary ---
Author Organization [facility] Address [facility] [address] [address] Phone Care Team Providers Care Booking Agent Name Role Phone Sofia Bruner MD Primary Care Provider Reason for Visit * Reason Comments Refill Request Encounter Details Date Type Department Care Team (Late st Contact Info) Description 12/23/2024 Refill [facility] Partners - [facility] [address] [place] [address] Faisal Olvera MD [address] [place] [address] Social History Tobacco Use Types Packs/Day Years [...] 1:59 PM EST) Sofia Abbott MD Note: [email or web address] Patient has no barriers to completing goals [...] documented as of this encounter Care Teams Booking Agent Relationship Specialty Start Date End Date Sofia Bruner MD PCP - General Family Medicine 10/24/12 documented as of this encounter
--- OUTSIDE RECORDS SUMMARY | 2025-06-21 18:38 | XMS_ITS | Encounter Summary ---
Author Organization [facility] Address [address] [place] [address] [place] [address] Phone Care Team Providers Care Director Quality Systems Name Role Phone Sofia Bruner MD Primary Care Provider Sofia Bruner MD Unavailable + [phone] Dima Crenshaw Registered Nurse Unavailable U navailable Reason for Referral * Cardiology Services (Routine) - [place] No Prior Auth Required Specialty Diagnoses / Procedures Referred By Contsigrid t Referred To Contact Cardiology Diagnoses Paroxysmal atrial fibrillation (HCC) Procedures CD TRANSESOPHAGEAL ECHO Bradley Hammond MD Phone: tel: fax: Referral ID Status Reason Start Date Expiration Date Visits Requested Visits Authorized [id number] [place] No Prior Auth Required Specialty Services Required 05/25/2024 05/25/2025 1 1 Encounter Details Date Type Department Care Team (Late st Contact Info) Description 05/25/2024 Orders Only [facility] Scheduling [address] [place] [place], [place] [address] Bradley Hammond MD [address] [place] [address] Paroxysmal atrial fibrillation (Primary Dx) Social History Tobacco Use Types [...] TRANSESOPHAGEAL ECHO Echocardiography Routine Paroxysmal atrial fibrillation Expected: 05/25/2024, Expires: 05/25/2025 documented as of [...] PM EST) No Sofia Bruner MD Note: [email or web address] Patient has no barriers to completing goals [...] documented as of this encounter Care Teams Director Quality Systems Relationship Specialty Start Date End Date Sofia Bruner MD PCP - General Family Medicine 10/24/12 Sofia Bruner MD [address] [place] [address] PCP - Krish GORMAN Attributed Physician 02/07/24 09/07/24 Dima Crenshaw, Registered Nurse Registered Nurse 07/12/24 07/13/24 documented as of this encounter
--- OUTSIDE RECORDS SUMMARY | 2025-06-21 18:38 | XMS_ITS | Encounter Summary ---
Author Organization [facility] Address [facility] [address] [place] [address] Phone Care Team Providers Care Proof Plate Maker Name Role Phone Sofia Bruner MD Primary Care Provider Sofia Bruner MD Unavailable [phone] Nancy Garibay Unavailable Unavailable Sofia Bruner MD Unavailable [phone] Dima Crenshaw Registered Nurse Unavailable U navailable Reason for Visit * Reason Comments Refill Request Encounter Details Date Type Department Care Team (Late st Contact Info) Description 05/01/2023 Refill [facility] [address] [place] [address] Sofia Bruner MD [address] [place] [address] Anxiety Social History Tobacco Use [...] 1:59 PM EST) Sofia Abbott MD Note: [email or web address] Patient has no barriers to completing goals [...] documented as of this encounter Care Teams Proof Plate Maker Relationship Specialty Start Date End Date Sofia Bruner MD PCP - General Family Medicine 10/24/12 Sofia Bruner MD [address] [place] [address] PCP - Madhu GORMAN Attributed Physician 02/06/21 01/06/24 Sofia Bruner MD [address] [place] [address] PCP - Krish GORMAN Attributed Physician 02/07/24 09/07/24 Nancy Garibay Hunting Sales Leader Complex Care Management 09/18/23 01/05/24 Dima Crenshaw, Registered Nurse Registered Nurse 07/12/24 07/13/24 documented as of this encounter
[2025-06-21 18:52] LABS: Hematocrit 41.8 % (42.0-52.0); Hemoglobin 13.3 g/dL (14.1-18.0); Immature Granulocytes % 0.2 %; Mean Corpuscular HGB Conc 31.8 g/dL (31.8-35.4); Mean Corpuscular Hemoglobin 29.4 pg (27.0-31.2); Mean Corpuscular Volume 92.5 fl (80-94); Nucleated Red Blood Cells % 0 %; Platelet Count 181 K/mm3 (142-424); Red Blood Count 4.52 M/mm3 (4.60-6.20); Red Cell Distribution Width-SD 49.7 fL; White Blood Count 8.5 K/mm3 (4.8-10.8)
[2025-06-21 20:18] LABS: 25-OH Vitamin D, Total < 12.8 ng/mL (30-100)
== END 2025-06-21 23:59 | disposition home or self-care (01) ==
LOC: LAB.DROPOF 18:35
PROVIDERS: PCP Student in an Organized Health Care Education/Training Program; Visit Provider Student in an Organized Health Care Education/Training Program
DX: N18.4 Chronic kidney disease, stage 4 (severe) (principal); E55.9 Vitamin D deficiency, unspecified; R80.9 Proteinuria, unspecified
CPT/HCPCS: 82306; 83970; 85025

== ENCOUNTER 2025-06-21 18:42 | Outpatient (CLI) | payer MEDICARE, SELFPAY ==
--- OUTSIDE RECORDS SUMMARY | 2025-06-21 18:45 | XMS_ITS | Clinical Summary ---
Author Organization [facility] Address [address] [place] [address] Phone Care Team Providers Care Marking Devices Assembler Name Role Phone Moises KEYS, Joann Trevino Conditions or Problems Problem Name Problem Code Onset Date Status Entry Date Provider Comment Standard Description Annotate BACK PAIN, LOW 504382195 (SNOMED CT) 03/29 Active 03/29 Joann De Leon NP Low back pain OVERWEIGHT 963330824 (SNOMED CT) 03/29 Active 03/29 Miguelina Shelley MA Overweight Thrombocytope lissy, unspecified D69.6 (ICD-10-CM ) 09/11 Active 03/26 Miguelina Shelley MA Thrombocytopeni a, unspecified Imported from [facility]: [facility] (26-Mar-20 at 08:40:32 AM) Paroxysmal atrial fibrillation 352968399 (SNOMED CT) 10/18 Active 03/26 Miguelina Shelley MA Paroxysmal atrial fibrillation Imported from [facility]: [facility] (26-Mar-20 at 08:40:32 AM) Parkinson's disease, unspecified whether dyskinesia present, unspecified whether manifestation s fluctuate G20.A1 (ICD-10-CM ) 10/18 Active 03/26 Miguelina Shelley MA Parkinson's disease without dyskinesia, without mention of fluctuations Imported from [facility]: [facility] (26-Mar-20 at 08:40:32 AM) OAB (overactive bladder) N32.81 (ICD-10-CM ) 10/23 Active 03/26 Miguelina Shelley MA Overactive bladder Imported from [facility]: [facility] (26-Mar-20 at 08:40:32 AM) Malignant neoplasm of right kidney, except renal pelvis C64.1 (ICD-10-CM ) 10/01 Active 03/26 Miguelina Shelley MA Malignant neoplasm of right kidney, except renal pelvis Imported from [employer] [facility] (26-Mar-20 at 08:40:32 AM) Lumbosacral radiculopathy 3944274 (SNOMED CT) 02/19 Active 03/26 Miguelina Shelley MA Lumbosacral radiculopathy Imported from [facility] (26-Mar-20 at 08:40:32 AM) Legal blindness, as defined in [place] H54.8 (ICD-10-CM ) 10/20 Active 03/26 Miguelina Shelley MA Legal blindness, as defined in [place] Imported from [facility] (26-Mar-20 at 08:40:32 AM) Inadequately controlled diabetes mellitus E11.65 (ICD-10-CM ) 11/09 Active 03/26 Miguelina Shelley MA Type 2 diabetes mellitus with hyperglycemia Imported from [facility] (26-Mar-20 at 08:40:32 AM) Falls W19.xxxA (ICD-10-CM ) 01/20 Active 03/26 Miguelina Shelley MA Unspecified fall, initial encounter Imported from [facility] (26-Mar-20 at 08:40:32 AM) Current smoker F17.200 (ICD-10-CM ) 10/01 Active 03/26 Miguelina Shelley MA Nicotine dependence, unspecified, uncomplicated Imported from [facility] (26-Mar-20 at 08:40:32 AM) Chronic neck pain M54.2 (ICD-10-CM ) 03/04 Active 03/26 Miguelina Shelley MA Cervicalgia Imported from [facility] (26-Mar-20 at 08:40:32 AM) Chronic anticoagulati on Z79.01 (ICD-10-CM ) 10/18 Active 03/26 Miguelina Shelley MA retirement (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 Imported from [facility] (26-Mar-20 at 08:40:32 AM) Bilateral leg edema R60.0 (ICD-10-CM ) 10/18 Active 03/26 Miguelina Shelley MA Localized edema Imported from [facility]: [facility] (26-Mar-20 at 08:40:32 AM) Atrial fibrillation, persistent I48.19 (ICD-10-CM ) 01/20 Active 03/26 Miguelina Shelley MA Other persistent atrial fibrillation Imported from [facility]: [facility] (26-Mar-20 at 08:40:32 AM) Anxiety 30087497 (SNOMED CT) 09/13 Active 03/26 Miguelina Shelley MA Anxiety Imported from [facility]: [facility] (26-Mar-20 at 08:40:32 AM) LUMBAR DISC HERNIATION WITH RADICULOPATHY 597757415 (SNOMED CT) 03/27 Active 03/27 Shyanne PAYTONC Lumbar disc prolapse with radiculopathy SPONDYLOSIS, LUMBAR, WITH RADICULOPATHY 544461035 (SNOMED CT) 03/27 Active 03/27 Shyanne INIGUEZ-C Lumbosacral spondylosis with radiculopathy LOWER BACK PAIN 744027942 (SNOMED CT) 03/27 Active 03/27 Shyanne INIGUEZ-C Low back pain LUMBAR RADICULOPATHY 426817769 (SNOMED CT) 03/27 Active 03/27 Shyanne INIGUEZ-C Lumbar radiculopathy LUMBAR STENOSIS, L1-L5, W/O NEUROGENIC CLAUDICATION M48.061 (ICD-10-CM ) 02/27 Active 02/27 Melani Coppola MA Spinal stenosis, lumbar region without neurogenic claudication Mixed hyperlipidemi a 193844624 (SNOMED CT) 10/22 Active 02/27 Melani Coppola MA Mixed hyperlipidemia Imported from [facility]: [facility] (28-Feb-20 at 01:21:17 PM) Controlled type 2 diabetes mellitus without complication, without long-term current use of insulin E11.9 (ICD-10-CM ) 10/22 Active 02/27 Melani Coppola SHERIF Type 2 diabetes mellitus without complications Imported from [employer]: [facility] (28-Feb-20 at 01:21:17 PM) CKD (chronic kidney disease), symptom management only, stage 2 (mild) N18.2 (ICD-10-CM ) 03/31 Active 02/27 Melani Coppola MA Chronic kidney disease, stage 2 (mild) Imported from [employer]: [facility] (28-Feb-20 at 01:21:17 PM) Chronic obstructive pulmonary disease 31812225 (SNOMED CT) 03/31 Active 02/27 Melani Coppola MA Chronic obstructive pulmonary disease Imported from [employer]: [facility] (28-Feb-20 at 01:21:17 PM) Medications Medication Instructions Start Date Stop Date Generic Name NDC Provider METHOCARBAMOL 750 MG TABS 03/29 methocarbamol 43019615654 Joann Brown MALE INFERTILITY SPECIALIST METHOCARBAMOL 750 MG TABS Take 1 tablet by mouth twice a day as needed muscle spasms 1 tablet TID PRN muscle spasms methocarbamol 45092644144 Joann Brown MALE INFERTILITY SPECIALIST Tylenol 325 mg capsule acetaminophen 97828588369 Miguelina Shelley MA METFORMIN HCL 500 MG TABS 1 po tid 03/29 metformin 86581614259 Miguelina Shelley MA FENOFIBRATE 160 MG TABS TAKE ONE TABLET BY MOUTH DAILY 03/29 fenofibrate 31953001544 Miguelina Shelley MA PRAMIPEXOLE DIHYDROCHLORIDE 0.125 MG TABS Take 0.125 mg by mouth 3 (three) times daily. 03/29 pramipexole 19645284172 Miguelina Shelley MA LISINOPRIL 40 MG TABS TAKE ONE TABLET BY MOUTH DAILY 03/29 lisinopril 17823320114 Miguelina Shelley MA OXYBUTYNIN CHLORIDE ER 15 MG [id number] 1 po qd 03/29 oxybutynin chloride 62095269636 Miguelina Shelley MA LIDOCAINE 5 % PTCH 1 patch by Transdermal route every 12 (twelve) hours. 03/29 lidocaine 28290625812 Miguelina Shelley MA Psyllium (METAMUCIL FIBER PO) Take by mouth daily. 03/29 METAMUCIL FIBER PO Miguelina Shelley MA OMEPRAZOLE 40 MG CPDR Take 1 capsule by mouth daily. 03/29 omeprazole 45274761418 Miguelina Shelley MA FLUOCINONIDE 0.05 % CREA APPLY SPARINGLY TWO OR THREE TIMES DAILY NEEDED 03/29 fluocinonide 13076320231 Miguelina Shelley MA FREESTYLE JERI 3 SENSOR blood-glucose sensor 90254675529 Miguelina Shelley MA ONETOUCH DELICA PLUS [id number] lancets 60605949848 Miguelina Shelley MA METOPROLOL TARTRATE 25 MG TABS metoprolol tartrate 43036525441 Miguelina Shelley MA ELIQUIS 5 MG TABS apixaban 95931348103 C hrkyle Shelley MA INVOKANA 100 MG TABS canagliflozin 84842141571 Miguelina Shelley MA BD PEN NEEDLE MINI U/F 31G X 5 MM pen needle, diabetic 36872946810 Miguelina Shelley MA ROSUVASTATIN CALCIUM 5 MG TABS rosuvastatin 60961877036 Vance Shelley MA CARBIDOPA-LEVODOP A 25-100 MG TABS carbidopa-levod op a 79287729536 Miguelina Shelley MA LORAZEPAM 1 MG TABS lorazepam 17383166408 Miguelina Shelley MA MECLIZINE HCL 25 MG TABS meclizine 73891418472 Miguelina Shelley MA ONETOUCH ULTRA TEST STRP blood sugar diagnostic 43797019647 Miguelina Shelley MA CEPHALEXIN 250 MG CAPS cephalexin 78797551081 Miguelina Shelley MA FUROSEMIDE 40 MG TABS furosemide 72909879354 Miguelina Shelley MA BD SWAB SINGLE USE REGULAR PADS alcohol swabs 25258411125 Vance Shelley MA OXYCODONE HCL 5 MG TABS oxycodone 06974113857 Miguelina Shelley MA TORSEMIDE 20 MG TABS torsemide 48981929595 Miguelina Shelley MA PRAMIPEXOLE DIHYDROCHLORIDE 0.25 MG TABS pramipexole 84822635971 Miguelina Shelley MA LISINOPRIL 40 MG TABS lisinopril 54357506343 Miguelina Shelley MA METHOCARBAMOL 750 MG TABS 03/29 methocarbamol 52053281852 Miguelina Shelley MA PANTOPRAZOLE SODIUM 20 MG TBEC pantoprazole 71034683490 Chri robert Shelley MA PREGABALIN 100 MG CAPS Take 1 capsule by mouth 2 (two) times daily for 30 days. 04/15 pregabalin (LYRICA) 100 MG CAPS 15699843007 Melani Coppola MA OXYCODONE-ACETAMI NOPHEN 10-325 MG TABS 1 po bid prn 04/02 oxycodone-acetami nophen (PERCOCET) 10-325 MG TABS 68317547236 Melani Coppola MA APIXABAN (ELIQUIS) 5 MG TABS Take 1 tablet by mouth 2 (two) times daily for 30 days. 04/05 apixaban (ELIQUIS) 5 mg TABS Melani Coppola MA ALBUTEROL SULFATE HFA 108 (90 Base) MCG/ACT AERS Use 2 puffs every 6 (six) hours as needed. 03/27 albuterol 108 (90 Base) mcg/puff AERS 68364817865 Melani Coppola MA ESCITALOPRAM OXALATE 10 MG TABS TAKE ONE TABLET BY MOUTH EVERY EVENING 03/27 escitalopram (LEXAPRO) 10 MG TABS 54127669605 Melani Coppola MA CYCLOBENZAPRINE HCL 10 MG TABS Take 1 tablet by mouth 3 (three) times daily as needed (back pain). 03/27 cyclobenzaprine (FLEXERIL) 10 MG TABS 40468274844 Melani Coppola MA CARBIDOPA-LEVODOP A 25-100 MG TABS Take 1 tablet by mouth 3 (three) times daily. 03/27 carbidopa-levodop a (SINEMET) 25-100 MG TABS 05735437210 Melani Coppola MA ATENOLOL-CHLORTHA LIDONE 50-25 MG TABS TAKE ONE TABLET BY MOUTH DAILY 03/27 atenolol-chlortha lidone 50-25 MG TABS 32562470753 Melani Coppola MA ASPIRIN 81 MG TBEC Take 81 mg by mouth daily. 03/27 aspirin 81 MG TBEC 09185215410 Melani Coppola MA AMLODIPINE BESYLATE 10 MG TABS TAKE ONE TABLET BY MOUTH DAILY 03/27 amlodipine (NORVASC) 10 MG TABS 16811931541 Melani Coppola MA PREGABALIN 100 MG CAPS Take 1 capsule by mouth 2 (two) times daily for 30 days. 04/15 pregabalin (LYRICA) 100 MG CAPS 56973169663 Jyothi Crum OXYCODONE-ACETAMI NOPHEN 10-325 MG TABS 1 po bid prn 04/02 oxycodone-acetami nophen (PERCOCET) 10-325 MG TABS 75615738098 Jyothi Crum apixaban (ELIQUIS) 5 mg TABS Take 1 tablet by mouth 2 (two) times daily for 30 days. 04/05 apixaban (ELIQUIS) 5 mg TABS Jyothi Crum ALBUTEROL SULFATE HFA 108 (90 Base) MCG/ACT AERS Use 2 puffs every 6 (six) hours as needed. 03/27 albuterol 108 (90 Base) mcg/puff AERS 31062457162 Jyothi Crum Psyllium (METAMUCIL FIBER PO) Take by mouth daily. 03/29 Psyllium (METAMUCIL FIBER PO) Melani Coppola MA PREDNISONE 10 MG TABS Take 4 tablets by mouth daily for 2 days, THEN 3 tablets daily for 2 days, THEN 2 tablets daily for 2 days, THEN 1 tablet daily for 2 days. 02/28 predniSONE (DELTASONE) 10 MG TABS 09474473163 Melani Coppola MA PRAMIPEXOLE DIHYDROCHLORIDE 0.125 MG TABS Take 0.125 mg by mouth 3 (three) times daily. 03/29 pramipexole (MIRAPEX) 0.125 MG TABS 66383677340 Melani Coppola MA OXYBUTYNIN CHLORIDE ER 15 MG [id number] 1 po qd 03/29 oxybutynin 15 MG TB24 03935507229 Melani Coppola MA OMEPRAZOLE 40 MG CPDR Take 1 capsule by mouth daily. 03/29 omeprazole (PRILOSEC) 40 MG CPDR 61607717709 Melani Coppola MA METFORMIN HCL 500 MG TABS 1 po tid 03/29 metFORMIN (GLUCOPHAGE) 500 MG TABS 66032292296 Melani Coppola MA LISINOPRIL 40 MG TABS TAKE ONE TABLET BY MOUTH DAILY 03/29 lisinopril (PRINIVIL,ZESTRIL ) 40 MG TABS 92385963837 Melani Coppola MA LIDOCAINE 5 % PTCH 1 patch by Transdermal route every 12 (twelve) hours. 03/29 lidocaine (LIDODERM) 5 % PTCH 42216240571 Melani Coppola MA FLUOCINONIDE 0.05 % CREA APPLY SPARINGLY TWO OR THREE TIMES DAILY NEEDED 03/29 fluocinonide (LIDEX) 0.05 % CREA 23793565680 Melani Coppola MA FENOFIBRATE 160 MG TABS TAKE ONE TABLET BY MOUTH DAILY 03/29 fenofibrate (LOFIBRA) 160 MG TABS 87760711902 Melani Coppola MA ESCITALOPRAM OXALATE 10 MG TABS TAKE ONE TABLET BY MOUTH EVERY EVENING 03/27 escitalopram (LEXAPRO) 10 MG TABS 13740474848 Melani Coppola MA CYCLOBENZAPRINE HCL 10 MG TABS Take 1 tablet by mouth 3 (three) times daily as needed (back pain). 03/27 cyclobenzaprine (FLEXERIL) 10 MG TABS 90464705554 Melani Coppola MA CARBIDOPA-LEVODOP A 25-100 MG TABS Take 1 tablet by mouth 3 (three) times daily. 03/27 carbidopa-levodop a (SINEMET) 25-100 MG TABS 33076893380 Melani Coppola MA ATENOLOL-CHLORTHA LIDONE 50-25 MG TABS TAKE ONE TABLET BY MOUTH DAILY 03/27 atenolol-chlortha lidone 50-25 MG TABS 81844859343 Melani Coppola MA ASPIRIN 81 MG TBEC Take 81 mg by mouth daily. 02/28 aspirin 81 MG TBEC 78342852689 Melani Coppola MA AMLODIPINE BESYLATE 10 MG TABS TAKE ONE TABLET BY MOUTH DAILY 03/27 amlodipine (NORVASC) 10 MG TABS 67782328686 Melani Coppola MA Medications Administered No information [...] Procedures Code Procedure Name Date Entry Date [id number] Tobacco Cessation Counseling Performed 2 Vital Signs Date Name Value Unit Description BMI (Body Mass Index) 38.83 kg/m2 Bod y Mass Index (Ratio) Height 69 [in_us] height E&M Weight Measured 263 [lb_av] weight E& M Weight Measured 263 [lb_av] weight E& M Immunizations No information available. Advance Directives No information available.
[2025-06-21 18:52] LABS: Hematocrit 41.8 % (42.0-52.0); Hemoglobin 13.3 g/dL (14.1-18.0); Immature Granulocytes % 0.2 %; Mean Corpuscular HGB Conc 31.8 g/dL (31.8-35.4); Mean Corpuscular Hemoglobin 29.4 pg (27.0-31.2); Mean Corpuscular Volume 92.5 fl (80-94); Nucleated Red Blood Cells % 0 %; Platelet Count 181 K/mm3 (142-424); Red Blood Count 4.52 M/mm3 (4.60-6.20); Red Cell Distribution Width-SD 49.7 fL; White Blood Count 8.5 K/mm3 (4.8-10.8)
[2025-06-21 19:06] LABS: Microscopic, Urine URINE MICROSCOPIC (MICROSCOPIC)
[2025-06-21 19:44] LABS: Albumin Level 3.5 g/dl (3.5-5.0); Anion Gap 15.7 mEq/L (5-15); Blood Urea Nitrogen 40 mg/dl (9-20); Calcium 8.4 mg/dl (8.4-10.2); Carbon Dioxide 24 mmol/L (22.0-30.0); Chloride 103 mmol/L (98-107); Creatinine,Serum 2.00 mg/dl (0.66-1.25); Estimated Glomerular Filt Rate 33 ml/min (>60); GFR (African American) 40 ML/MIN (>60); Glucose 167 mg/dl (74-100); Phosphorous 2.9 mg/dl (2.5-4.5); Potassium 4.7 mmoL/L (3.5-5.1); Sodium 138 mmol/L (136-145)
[2025-06-21 19:49] LABS: Bilirubin,Urine Negative (Negative); Color,Urine YELLOW (Yellow); Glucose,Urine (UA) 2+ (Negative); Ketones,Urine Negative (Negative); Leukocyte Esterase,Urine Negative (Negative); PH,Urine 5.5 (5.0-8.5); Protein,Urine 3+ (Negative); Specific Gravity, Urine 1.020 (1.005-1.030); Urobilinogen,Urine 0.2 EU/dl (0.2)
[2025-06-21 20:06] LABS: Bacteria,Urine Trace /lpf; Squamous Epithelial Cell,Urine Occasional #/hpf (0-5); WBC,Urine Occasional #/hpf (0-3)
[2025-06-21 20:18] LABS: 25-OH Vitamin D, Total < 12.8 ng/mL (30-100)
[2025-06-23 11:19] LABS: Albumin, U 1741.6 ug/mL (Not Estab.)
== END 2025-06-21 23:59 | disposition home or self-care (01) ==
LOC: LAB.DROPOF 18:43
PROVIDERS: PCP Student in an Organized Health Care Education/Training Program; Visit Provider Student in an Organized Health Care Education/Training Program
DX: N18.4 Chronic kidney disease, stage 4 (severe) (principal)
CPT/HCPCS: 80069; 81001; 82043; 82306; 82570; 83970; 84156; 85025